=== PATIENT | female | born 1950 | race African-American/Black ===

== ENCOUNTER 2017-07-03 21:13 | Inpatient (IN) | payer MEDICARE ==
[~2017-07-03] VITALS: Ht 167.6 cm; Wt 66.5 kg
[~2017-07-03 21:13] MED LIST: NAPR40TA PO
[2017-07-03 21:20] VITALS: BP 188/125; PULSE 120; RESP 32; TEMP 97.3; O2SAT 98
[2017-07-03 21:56] VITALS: RESP 28; O2SAT 98
[2017-07-03] MEDS ORDERED: methylPREDNISolone SOD SUCC 125 MG/2 ML VIAL IV PUSH ONE (22:00)
[2017-07-03] MEDS ORDERED: SODIUM CHLORIDE 0.9% FLUSH 10 ML FLUSH IVF PRN (22:00)
[2017-07-03] MEDS: RESP: ALBUTEROL 2.5 MG/IPRATROPIUM 0.5 MG NEB (SCH) INH ×2 (22:10→22:11)
[2017-07-03 22:17] LABS: AUTOMATED NEUTROPHIL # 7.7 TH/MM3 (1.8-7.7); BASOPHIL % 0.4 % (0.0-2.0); EOSINOPHIL # 0.1 TH/MM3 (0-0.4); HEMATOCRIT 33.7 % (35.0-46.0); HEMOGLOBIN 11.8 GM/DL (11.6-15.3); LYMPH % 22.7 % (9.0-44.0); LYMPHOCYTE # 2.5 TH/MM3 (1.0-4.8); MEAN CELL VOLUME 88.8 FL (80.0-100.0); MEAN CORPUSCULAR HGB CONC 34.9 % (32.0-36.0); MEAN PLATELET VOLUME 6.7 FL (7.0-11.0); MONO % 6.1 % (0.0-8.0); MONOCYTE # 0.7 TH/MM3 (0-0.9); NEUT % 69.8 % (16.0-70.0); PLATELET COUNT 317 TH/MM3 (150-450); RED BLOOD COUNT 3.79 MIL/MM3 (4.00-5.30)
--- NOTE | 2017-07-03 22:28 | RADRPT ---
EXAM DATE/TIME: 07/03/2017 22:05 [facility] COMPARISON: No previous studies available for comparison. INDICATIONS : Short of breath. MEDICAL HISTORY : None. SURGICAL HISTORY : None. ENCOUNTER: Initial ACUITY: 1 week PAIN SCORE: 0/10 LOCATION: Bilateral chest FINDINGS: A single AP erect portable view of the chest was obtained and demonstrates streaky perihilar and biba silar opacities most characteristic of pulmonary edema. The heart size is enlarged. There is no effus ion. The bony thorax is intact. Overlying electrocardiogram leads are present. CONCLUSION: Streaky perihilar and bibasilar opacities most characteristic of pulmonary edema. Yared Wright MD on July 03, 2017 at 22:25 Board Certified Radiologist. This report was verified electronically.
[2017-07-03 22:40] LABS: INTERNATIONAL NORMALIZED RATIO 1.1 RATIO; PROTHROMBIN TIME - PATIENT 10.9 SEC (9.8-11.6)
--- NOTE | 2017-07-03 22:40 | PD ---
HPI Chief Complaint: Respiratory Distress Time Seen by Provider: 21:53 Travel History International Travel<30 days: No Contact w/Intl Traveler<30days: No Traveled to known affect area: No History of Present Illness HPI 67-year-old female complains of shortness of breath for 3 weeks. The shortness breath is constant. She quit smoking 3 weeks ago. She reports epigastric abdominal pain which she attributes to the continued shortness of breath. She' s had no fever. Exertional shortness of breath is reported. No orthopnea. PFSH Past Medical History Tetanus Vaccination: > 5 Years Influenza Vaccination: No ?: Not Social History Alcohol Use: Yes (1 drink per day ) Tobacco Use: Yes (1/2 PPD) Substance Use: No Allergies-Medications (Allergen,Severity, Reaction): Coded Allergies: No Known Allergies (Unverified Adverse Reaction, Unknown, 07/03/17) Reported Meds & Prescriptions Reported Meds & Active Scripts Active Naproxen Sodium 550 Mg Tab 550 Mg PO BID Review of Systems Except as stated in HPI: all other systems reviewed are Neg General / Constitutional: No: Fever Physical Exam Narrative GENERAL: 67-year-old female pleasant well-nourished minimal tachypnea Vital Signs Date Time Temp Pulse Resp B/P (MAP) Pulse Ox O2 Delivery O2 Flow Rate FiO2 07/03/17 21:56 28 98 Nasal Cannula 2.00 07/03/17 21:56 98 Nasal Cannula 2.00 07/03/17 21:42 28 98 Nasal Cannula 2.00 07/03/17 21:20 97.3 120 32 188/125 (146) 98 SKIN: Warm and dry. HEAD: Atraumatic. Normocephalic. EYES: Pupils equal and round. No scleral icterus. No injection or drainage. ENT: No nasal bleeding or discharge. Mucous membranes pink and moist. NECK: Trachea midline. No JVD. CARDIOVASCULAR: Regular rate and rhythm. RESPIRATORY: No accessory muscle use. Clear to auscultation. Breath sounds equal bilaterally. GASTROINTESTINAL: Abdomen soft, non-tender, nondistended. Hepatic and splenic margins not palpable. MUSCULOSKELETAL: Extremities without clubbing, cyanosis, or edema. No obvious deformities. NEUROLOGICAL: Awake and alert. No obvious cranial nerve deficits. Motor grossly within normal limits. Five out of 5 muscle strength in the arms and legs. Normal speech. PSYCHIATRIC: Appropriate mood and affect; insight and judgment normal. Data Data Last Documented VS Vital Signs Date Time Temp Pulse Resp B/P (MAP) Pulse Ox O2 Delivery O2 Flow Rate FiO2 07/03/17 21:56 28 98 Nasal Cannula 2.00 07/03/17 21:20 97.3 120 188/125 (146) Orders Orders Complete Blood Count With Diff (07/03/17 21:53) Comprehensive Metabolic Panel (07/03/17 21:53) B-Type Natriuretic Peptide (07/03/17 21:53) Act Partial Throm Time (Ptt) (07/03/17 21:53) Prothrombin Time / Inr (Pt) (07/03/17 21:53) Magnesium (Mg) (07/03/17 21:53) Ckmb (Isoenzyme) Profile (07/03/17:53) Troponin I (07/03/17:53) Iv Access Insert/Monitor (07/03/17 21:53) Electrocardiogram (07/03/17 21:53) Ecg Monitoring (07/03/17:53) Oximetry (07/03/17:53) Oxygen Administration (07/03/17 21:53) Chest, Single Ap (07/03/17 21:53) Ct Pulmonary Angiogram (07/03/17 21:53) Sodium Chloride 0.9% Flush (Ns Flush) (07/03/17 22:00) Methylprednisolone So Succ Inj (Solumedr (07/03/17 22:00) Albuterol-Ipratropium Neb (Duoneb Neb) (07/03/17 22:00) Lipase (07/03/17 21:53) Labs Laboratory Tests Test 07/03/17 22:00 White Blood Count 11.0 TH/MM3 Red Blood Count 3.79 MIL/MM3 Hemoglobin 11.8 GM/DL Hematocrit 33.7 % Mean Corpuscular Volume 88.8 FL Mean Corpuscular Hemoglobin 31.0 PG Mean Corpuscular Hemoglobin Concent 34.9 % Red Cell Distribution Width 16.0 % Platelet Count 317 TH/MM3 Mean Platelet Volume 6.7 FL Neutrophils (%) (Auto) 69.8 % Lymphocytes (%) (Auto) 22.7 % Monocytes (%) (Auto) 6.1 % Eosinophils (%) (Auto) 1.0 % Basophils (%) (Auto) 0.4 % Neutrophils # (Auto) 7.7 TH/MM3 Lymphocytes # (Auto) 2.5 TH/MM3 Monocytes # (Auto) 0.7 TH/MM3 Eosinophils # (Auto) 0.1 TH/MM3 Basophils # (Auto) 0.0 TH/MM3 CBC Comment DIFF FINAL Differential Comment Prothrombin Time 10.9 SEC Prothromb Time International Ratio 1.1 RATIO Activated Partial Thromboplast Time 23.6 SEC Blood Urea Nitrogen 22 MG/DL Random Glucose 130 MG/DL Albumin 3.9 GM/DL Calcium Level 9.6 MG/DL Magnesium Level 2.2 MG/DL Sodium Level 138 MEQ/L Potassium Level 3.9 MEQ/L Chloride Level 106 MEQ/L Carbon Dioxide Level 22.8 MEQ/L Anion Gap 9 MEQ/L Lipase 181 U/L MDM Medical Decision Making Medical Screen Exam Complete: Yes Emergency Medical Condition: Yes Medical Record Reviewed: Yes Differential Diagnosis Emphysema, COPD, anemia, PE, acute coronary syndrome Narrative Course Last Impressions Chest X-Ray 07/03/17 3800 Signed Impressions: Service Date/Time: Monday, July 03, 2017 22:05 - CONCLUSION: Streaky perihilar and bibasilar opacities most characteristic of pulmonary edema. Yared Wright MD CBC & BMP Diagram 07/03/17 22:00 Albumin 3.9, Calcium Level 9.6, Magnesium Level 2.2 Case d/w oncoming provider, Dr Segovia. BNP pending. CT pulmonary angiogram pending at 11pm. Conrado Baumann MD Jul 03, 2017 22:40
[2017-07-03 22:51] LABS: CHLORIDE 106 MEQ/L (98-107); SODIUM (NA) 138 MEQ/L (136-145)
[2017-07-03 22:54] LABS: CALCIUM 9.6 MG/DL (8.5-10.1)
[2017-07-03 22:55] LABS: ALBUMIN 3.9 GM/DL (3.4-5.0); BICARBONATE 22.8 MEQ/L (21.0-32.0); BLOOD UREA NITROGEN 22 MG/DL (7-18); GLUCOSE,RANDOM 130 MG/DL (74-106); MAGNESIUM 2.2 MG/DL (1.5-2.5)
[2017-07-03 22:58] LABS: ALT (GPT) 93 U/L (10-53); AST (GOT) 88 U/L (15-37); GLOMERULAR FILTRATION RATE 60 ML/MIN (>89)
[2017-07-03 22:59] LABS: TOTAL BILIRUBIN ADULT 0.6 MG/DL (0.2-1.0)
[2017-07-03 23:00] LABS: TOTAL PROTEIN 7.8 GM/DL (6.4-8.2)
[2017-07-03 23:01] LABS: ALKALINE PHOSPHATASE 78 U/L (45-117)
[2017-07-03 23:03] LABS: TROPONIN I 0.05 NG/ML (0.02-0.05)
[2017-07-03] MEDS ORDERED: FUROSEMIDE 40 MG/4 ML VIAL IV PUSH ONE (23:15)
[2017-07-03] MEDS ORDERED: IOHEXOL 350 MG/ML 10 ML VIAL (for RAD DIAG) IVCONTRAST ONE (23:17)
--- NOTE | 2017-07-03 23:26 | RADRPT ---
EXAM DATE/TIME: 07/03/2017 22:47 [facility] COMPARISON: CHEST SINGLE AP, July 03, 2017, 22:05. INDICATIONS : Shortness of breath. IV CONTRAST: 75 cc Omnipaque 350 (iohexol) IV RADIATION DOSE: 7.76 CTDIvol (mGy) MEDICAL HISTORY : None SURGICAL HISTORY : None. ENCOUNTER: Initial ACUITY: 4 - 6 days PAIN SCALE: 0/10 LOCATION: chest TECHNIQUE: Volumetric scanning of the chest was performed using a pulmonary embolism protocol MIP images were re constructed. Using automated exposure control and adjustment of the mA and/or kV according to patien t size, radiation dose was kept as low as reasonably achievable to obtain optimal diagnostic quality images. DICOM format image data is available electronically for review and comparison. Follow-up recommendations for detected pulmonary nodules are based at a minimum on nodule size and pa tient risk factors according to Fleischner Society Guidelines. FINDINGS: PULMONARY ARTERIES: No filling defects are seen in the pulmonary arteries through the segmental level. LUNGS: There is moderate to severe centrilobular emphysema. Interlobular septal thickening. PLEURAE: There is small right pleural effusion. MEDIASTINUM: There is good visualization of the great vessels of the middle mediastinum. No evidence of mediastin al or hilar adenopathy/mass. Coronary artery calcifications. Cardiomegaly. MUSCULOSKELETAL: Within normal limits for patient age. MISCELLANEOUS: The visualized upper abdominal organs demonstrate no acute abnormality. CONCLUSION: 1. No evidence for pulmonary embolism. 2. Cardiomegaly and interstitial edema. 3. Small right pleural effusion. Christian Gtz MD on July 03, 2017 at 23:23 Board Certified Radiologist. This report was verified electronically.
[2017-07-03] MEDS ORDERED: NALOXONE HCL 0.4 MG/ML AMP IV PUSH PRN (23:45)
[2017-07-03] MEDS ORDERED: SODIUM CHLORIDE 0.9% FLUSH 10 ML FLUSH IV FLUSH PRN (23:45)
[2017-07-03] MEDS ORDERED: ONDANSETRON HCL 4 MG/2 ML VIAL IVP PRN (23:45)
[2017-07-03] MEDS ORDERED: ACETAMINOPHEN 325 MG TAB PO PRN (23:45)
[2017-07-04] VITALS (26 sets, daily range): BP systolic 119–160; BP diastolic 79–112; PULSE 96–108; RESP 14–34; TEMP 97.5–98.2; O2SAT 96–100
[2017-07-04] MEDS: HEPARIN SODIUM - SQ 10,000 UNITS/ML VIAL SQ SCH ×4 (00:54→23:58)
[2017-07-04] MEDS: cloNIDine HCL 0.1 MG TAB PO PRN (00:54)
[2017-07-04 04:45] LABS: AUTOMATED NEUTROPHIL # 7.1 TH/MM3 (1.8-7.7); BASOPHIL % 0.1 % (0.0-2.0); EOSINOPHIL % 0.2 % (0.0-4.0); HEMOGLOBIN 11.7 GM/DL (11.6-15.3); LYMPH % 5.5 % (9.0-44.0); LYMPHOCYTE # 0.4 TH/MM3 (1.0-4.8); MEAN CELL VOLUME 89.4 FL (80.0-100.0); MEAN CORPUSCULAR HEMOGLOBIN 30.7 PG (27.0-34.0); MEAN CORPUSCULAR HGB CONC 34.3 % (32.0-36.0); MEAN PLATELET VOLUME 6.7 FL (7.0-11.0); MONO % 0.8 % (0.0-8.0); MONOCYTE # 0.1 TH/MM3 (0-0.9); NEUT % 93.4 % (16.0-70.0); PLATELET COUNT 304 TH/MM3 (150-450); RED BLOOD COUNT 3.81 MIL/MM3 (4.00-5.30); RED CELL DISTRIBUTION WIDTH 15.7 % (11.6-17.2); WHITE BLOOD COUNT 7.6 TH/MM3 (4.0-11.0)
[2017-07-04 04:46] LABS: CALCIUM 9.5 MG/DL (8.5-10.1)
[2017-07-04 04:47] LABS: BICARBONATE 22.1 MEQ/L (21.0-32.0)
[2017-07-04] MEDS: SODIUM CHLORIDE 0.9% FLUSH 10 ML FLUSH IV FLUSH SCH ×2 (08:08→20:48)
[2017-07-04] MEDS ORDERED: FUROSEMIDE 40 MG/4 ML VIAL IV PUSH SCH (09:00)
[2017-07-04] MEDS ORDERED: POTASSIUM CHLORIDE 10 MEQ CONTROLLED RELEASE TAB PO ONE (10:30)
[2017-07-04] MEDS ORDERED: FUROSEMIDE 20 MG/2 ML VIAL IV PUSH ONE (10:30)
--- NOTE | 2017-07-04 10:39 | HHI.HP ---
[facility] Primary Care Physician Haydee Rivero MD Admission Diagnosis New Onset CHF; Pleural Effusion; Hypoxia Diagnoses: Chief Complaint: Shortness of breath Travel History International Travel<30 Days: No Contact w/Intl Traveler <30 Da: No Traveled to Known Affected Are: No History of Present Illness 67-year-old white female being admitted for suspected new onset systolic acute CHF Patient was in her usual state of health until 2-3 weeks ago when she began experiencing a sudden onset of shortness of breath. This gradually worsened with time, developed orthopnea as well. Shortness of breath worsens substantially with any type of exertion including getting dressed or ambulating short distances. Denies any celi chest pain. Denies any fevers or chills. Denies any worsening lower extremity edema apart from her baseline edema which he attributes to being in a standing position all day at work. Patient second to the ER because of shortness of breath became constant at rest. In the emergency room a chest x-ray was obtained which independently reviewed which shows mild diffuse pulmonary edema. The angiogram was also obtained which shows a pleural effusion but otherwise is negative for pulmonary embolus. No acute infiltrates are noted on either study. 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 EYES: No scleral icterus. No injection or drainage. ENT: No nasal bleeding or discharge. Mucous membranes pink and moist. CARDIOVASCULAR: Regular rate and rhythm. no murmurs, no obvious JVD, no lower extremity edema, no hepatojugular reflex noted RESPIRATORY: No accessory muscle use. Mild crackles are heard bibasilarly GASTROINTESTINAL: Abdomen soft, non-tender, nondistended. Extremities: No clubbing, cyanosis, or edema. No obvious deformities. MUSCULOSKELETAL: adequate muscle bulk and tone for age and habitus NEUROLOGICAL: Awake and alert. No obvious cranial nerve deficits. No facial droop nor slurred speech noted. PSYCHIATRIC: Appropriate mood and affect; insight and judgment normal. Laboratory Laboratory Tests Test 07/03/17 22:00 07/04/17 04:20 White Blood Count 11.0 7.6 Red Blood Count 3.79 3.81 Hemoglobin 11.8 11.7 Hematocrit 33.7 34.0 Mean Corpuscular Volume 88.8 89.4 Mean Corpuscular Hemoglobin 31.0 30.7 Mean Corpuscular Hemoglobin Concent 34.9 34.3 Red Cell Distribution Width 16.0 15.7 Platelet Count 317 304 Mean Platelet Volume 6.7 6.7 Neutrophils (%) (Auto) 69.8 93.4 Lymphocytes (%) (Auto) 22.7 5.5 Monocytes (%) (Auto) 6.1 0.8 Eosinophils (%) (Auto) 1.0 0.2 Basophils (%) (Auto) 0.4 0.1 Neutrophils # (Auto) 7.7 7.1 Lymphocytes # (Auto) 2.5 0.4 Monocytes # (Auto) 0.7 0.1 Eosinophils # (Auto) 0.1 0.0 Basophils # (Auto) 0.0 0.0 CBC Comment DIFF FINAL DIFF FINAL Differential Comment Prothrombin Time 10.9 Prothromb Time International Ratio 1.1 Activated Partial Thromboplast Time 23.6 Blood Urea Nitrogen 22 19 Creatinine 1.10 1.00 Random Glucose 130 164 Total Protein 7.8 Albumin 3.9 Calcium Level 9.6 9.5 Magnesium Level 2.2 Alkaline Phosphatase 78 Aspartate Amino Transf (AST/SGOT) 88 Alanine Aminotransferase (ALT/SGPT) 93 Total Bilirubin 0.6 Sodium Level 138 139 Potassium Level 3.9 3.3 Chloride Level 106 104 Carbon Dioxide Level 22.8 22.1 Anion Gap 9 13 Estimat Glomerular Filtration Rate 60 67 Total Creatine Kinase 157 Creatine Kinase MB 4.1 Troponin I 0.05 B-Type Natriuretic Peptide 1840 Lipase 181 Result Diagram: 07/04/17 0420 07/04/17419 Imaging Last Impressions Chest X-Ray 07/03/172152 Signed Impressions: Service Date/Time: Monday, July 03, 2017 22:05 - CONCLUSION: Streaky perihilar and bibasilar opacities most characteristic of pulmonary edema. Yared Wright MD CT Angiography 07/03/172152 Signed Impressions: Service Date/Time: Monday, July 03, 2017 22:47 - CONCLUSION: 1. No evidence for pulmonary embolism. 2. Cardiomegaly and interstitial edema. 3. Small right pleural effusion. Christian Gtz MD Caprini VTE Risk Assessment Caprini VTE Risk Assessment: Mod/High Risk (score >= 2) Caprini Risk Assessment Model Point Value = 1 Point Value = 2 Point Value = 3 Point Value = 5 Age 41-60 Minor surgery BMI > 25 kg/m2 Swollen legs Varicose veins or History of unexplained or recurrent spontaneous Oral contraceptives or hormone replacement Sepsis (< 1 month) Serious lung disease, including pneumonia (< 1 month) Abnormal pulmonary function Acute myocardial infarction Congestive heart failure (< 1 month) History of inflammatory bowel disease Medical patient at bed rest Age 61-74 Arthroscopic surgery Major open surgery (> 45 min) Laparoscopic surgery (> 45 min) Malignancy Confined to bed (> 72 hours) Immobilizing plaster cast Central venous access Age >= 75 History of VTE Family history of VTE Factor V Leiden Prothrombin [id number] Lupus anticoagulant Anticardiolipin antibodies Elevated serum homocysteine Heparin-induced thrombocytopenia Other congenital or acquired thrombophilia Stroke (< 1 month) Elective arthroplasty Hip, pelvis, or leg fracture Acute spinal cord injury (< 1 month) Prophylaxis Regimen Total Risk Factor Score Risk Level Prophylaxis Regimen 0-1 Low Early ambulation 2 Moderate Order ONE of the following: *Sequential Compression Device (SCD) *Heparin 5000 units SQ BID 3-4 Higher Order ONE of the following medications: *Heparin 5000 units SQ TID *Enoxaparin/Lovenox 40 mg SQ daily (WT < 150 kg, CrCl > 30 mL/min) *Enoxaparin/Lovenox 30 mg SQ daily (WT < 150 kg, CrCl > 10-29 mL/min) *Enoxaparin/Lovenox 30 mg SQ BID (WT < 150 kg, CrCl > 30 mL/min) AND/OR *Sequential Compression Device (SCD) 5 or more Highest Order ONE of the following medications: *Heparin 5000 units SQ TID (Preferred with Epidurals) *Enoxaparin/Lovenox 40 mg SQ daily (WT < 150 kg, CrCl > 30 mL/min) *Enoxaparin/Lovenox 30 mg SQ daily (WT < 150 kg, CrCl > 10-29 mL/min) *Enoxaparin/Lovenox 30 mg SQ BID (WT < 150 kg, CrCl > 30 mL/min) AND *Sequential Compression Device (SCD) Assessment and Plan Assessment and Plan 67-year-old black female admitted for suspected new onset acute systolic CHF Shortness of breath -Elevated BNP -obtaining echocardiogram, mild edema noted on imaging, given Lasix in ER, continue with twice daily dosing of Lasix, intake output, fluid and salt restriction -BMP in AM -EKG d/w cards, no STEMI noted, trending troponins heparin Physician Certification 2 Midnight Certification Type: Admission for Inpatient Services Order for Inpatient Services The services are ordered in accordance with Medicare regulations or non- Medicare payer requirements, as applicable. In the case of services not specified as inpatient-only, they are appropriately provided as inpatient services in accordance with the 2-midnight benchmark. Estimated LOS (days): 2 2 days is the estimated time the patient will need to remain in the hospital, assuming treatment plan goals are met and no additional complications. Post-Hospital Plan: Home Jean Echeverria MD Jul 04, 2017 10:39
[2017-07-04] MEDS ORDERED: ASPIRIN 325 MG TAB PO ONE (14:30)
[2017-07-04] MEDS: FUROSEMIDE 40 MG/4 ML VIAL IV PUSH SCH (18:26)
[2017-07-04] MEDS: CARVEDILOL 6.25 MG TAB PO SCH (20:48)
--- NOTE | 2017-07-04 21:20 | EKG ---
Date Performed: 07/03/2017 Time Performed: 22:26:36 PTAGE: 67 years EKG: JUNCTIONAL TACHYCARDIA POSSIBLE RIGHT VENTRICULAR CONDUCTION DELAY VOLTAGE CRITERIA FOR LVH POSSIBLE SEPTAL MYOCARDIAL INFARCTION ABNORMAL ECG NO PREVIOUS TRACING DOCTOR: Terry Fragoso Interpretating Date/Time 07/04/2017 21:19:06
[2017-07-05] VITALS (8 sets, daily range): BP systolic 115–129; BP diastolic 74–95; PULSE 86–104; RESP 16–24; TEMP 97.6–98.4; O2SAT 96–100
[2017-07-05 05:16] LABS: CREATININE 1.2 MG/DL (0.50-1.00)
--- NOTE | 2017-07-05 08:03 | PD.CARD.PN ---
Subjective Subjective Remarks Pt breathing better than at admission but still notes she isn't breathing as well as she'd like Objective Medications Current Medications Medications (Trade) Dose Ordered Sig/Mike Route Start Time Stop Time Status Last Admin (NS Flush) 2 ml UNSCH PRN IV FLUSH 07/03/17 23:45 (NS Flush) 2 ml BID IV FLUSH 07/04/17 09:00 07/04/17 20:48 (Tylenol) 650 mg Q4H PRN PO 07/03/17 23:45 (Zofran Inj) 4 mg Q6H PRN IVP 07/03/17 23:45 (Heparin Inj) 5,000 units Q8H SQ 07/04/17 00:00 07/04/17 23:58 (Narcan Inj) 0.4 mg UNSCH PRN IV PUSH 07/03/17 23:45 (Catapres) 0.1 mg Q6H PRN PO 07/04/17 00:45 07/04/17 00:54 (Lasix Inj) 40 mg BID@ IV PUSH 07/04/17 18:00 07/04/17 18:26 (KCl) 30 meq DAILY PO 07/05/17 09:00 (Aspirin) 325 mg DAILY PO 07/05/17 09:00 (Coreg) 6.25 mg Q12HR PO 07/04/17 21:00 07/04/17 20:48 Vital Signs / I&O Vital Signs Date Time Temp Pulse Resp B/P (MAP) Pulse Ox O2 Delivery O2 Flow Rate FiO2 07/05/17 04:00 99 07/05/17 04:00 97.6 99 16 122/85 (97) 97 07/05/17 00:00 97 07/05/17 00:00 99 Nasal Cannula 2.00 07/05/17 00:00 98.4 96 24 129/93 (105) 99 07/04/17 20:00 97.8 96 14 135/94 (108) 96 07/04/17 20:00 98 07/04/17 19:01 104 17 119/79 (92) 07/04/17 19:00 104 07/04/17 18:01 102 07/04/17 18:01 102 20 151/98 (115) 07/04/17 17:16 106 07/04/17 17:01 102 07/04/17 17:01 102 18 136/100 (112) 98 07/04/17 16:01 106 15 127/79 (95) 98 07/04/17 16:01 106 07/04/17 15:01 104 07/04/17 15:01 104 17 121/83 (96) 99 07/04/17 14:01 100 21 138/99 (112) 100 07/04/17 14:00 102 07/04/17 13:01 100 07/04/17 13:01 100 17 132/91 (105) 98 07/04/17 12:01 97.5 104 22 147/100 (116) 99 07/04/17 12:00 102 07/04/17 10:44 99 Nasal Cannula 1.00 07/04/17 10:40 100 34 140/89 (106) 07/04/17 10:25 98 21 144/93 (110) 98 07/04/17 10:01 100 21 150/102 (118) 100 07/04/17 09:01 96 17 144/89 (107) 99 07/04/17 08:01 97.5 96 18 149/104 (119) 100 07/04/17 08:00 100 I/O 07/04/17 07/04/17 07/04/17 07/05/17 07/05/17 07/05/17 07:00 15:00 23:00 07:00 15:00 23:00 Intake Total 120 ml 1150 ml 0 ml Output Total 700 ml 1300 ml 600 ml Balance -700 ml 120 ml -150 ml -600 ml Intake Oral 120 ml 1150 ml 0 ml Output Urine Total 700 ml 1300 ml 600 ml # Bowel Movements 1 Physical Exam GENERAL: This is a well-nourished, well-developed patient, in no apparent distress. CARDIOVASCULAR: Regular rate and irregular rhythm without murmurs, gallops, or rubs. RESPIRATORY: Clear to auscultation. Breath sounds equal bilaterally. No wheezes , rales, or rhonchi. GASTROINTESTINAL: Abdomen soft, non-tender, nondistended. Normal, active bowel sounds MUSCULOSKELETAL: Extremities without clubbing, cyanosis, or edema. NEURO: Alert & Oriented x4 to person, place, time, situation. Moves all ext x4 Laboratory Laboratory Tests Test 07/04/17 14:10 07/04/17 21:00 07/05/17 04:25 Troponin I 0.04 NG/ML 0.05 NG/ML Blood Urea Nitrogen 33 MG/DL Creatinine 1.20 MG/DL Random Glucose 130 MG/DL Calcium Level 9.0 MG/DL Sodium Level 136 MEQ/L Potassium Level 3.9 MEQ/L Chloride Level 103 MEQ/L Carbon Dioxide Level 22.0 MEQ/L Anion Gap 11 MEQ/L Estimat Glomerular Filtration Rate 54 ML/MIN Imaging Last Impressions Chest X-Ray 07/03/172152 Signed Impressions: Service Date/Time: Monday, July 03, 2017 22:05 - CONCLUSION: Streaky perihilar and bibasilar opacities most characteristic of pulmonary edema. Yared Wright MD CT Angiography 07/03/172152 Signed Impressions: Service Date/Time: Monday, July 03, 2017 22:47 - CONCLUSION: 1. No evidence for pulmonary embolism. 2. Cardiomegaly and interstitial edema. 3. Small right pleural effusion. Christian Gtz MD Assessment and Plan Problem List: (1) Acute CHF (congestive heart failure) ICD Codes: I50.9 - Heart failure, unspecified Plan: Nearing compensation, Cr. did bump slightly, will stop IV lasix after this AMs dose and go to PO tomorrow; echo pending, I do suspect systolic dysfunction and will adjust meds as necessary (would add entresto potentially if cr stable) (2) Abnormal EKG ICD Codes: R94.31 - Abnormal electrocardiogram [ECG] [EKG] Plan: nuc stress pending (3) Dyspnea ICD Codes: R06.00 - Dyspnea, unspecified Plan: Improved but not resolved, though off O2, advised ambulation, testing as above. Assessment and Plan Dr. Diaz will likely follow in the AM. Manny Estrada MD Jul 05, 2017 08:03
--- NOTE | 2017-07-05 08:15 | MB ---
cc: Manny Estrada MD DATE: 07/04/2017 REASON FOR CONSULTATION: New onset congestive heart failure. HISTORY OF PRESENT ILLNESS: The patient is a very pleasant 67-year-old woman with no significant past medical history, who over the last few weeks has become progressively short of breath. This kept increasing with orthopnea to the point where she really could not breathe at all and thus presented to the emergency department in clinical congestive heart failure. She was begun on diuresis and is feeling mostly better, though she is still having some shortness of breath, but to a much lesser degree. She denies any other symptoms such as chest pain, lightheadedness, dizziness, syncope. She denies any significant past medical history. PAST MEDICAL HISTORY: None. SOCIAL HISTORY: She denied to me, though the chart says off and on smoking. HOME MEDICATIONS: None. CURRENT MEDICATIONS: Potassium 30 mEq daily, aspirin 325 mg a day, Lasix 40 mg IV b.i.d., subcutaneous heparin. ALLERGIES: NO KNOWN DRUG ALLERGIES. PHYSICAL EXAMINATION: VITAL SIGNS: Afebrile, pulse 104, respiratory rate 70, BP 121/83, saturating 99% on room air. GENERAL: Pleasant, thin -[place] woman in no distress. NECK: No JVD. LUNGS: Rales at both bases. CARDIOVASCULAR: Mildly tachycardic, but regular. No significant murmurs appreciated. ABDOMEN: Benign. EXTREMITIES: No edema. LABORATORY DATA: White count 7.6, hematocrit 34, platelets 304. Sodium 139, potassium 3.3, chloride 104, bicarbonate 22.1, BUN 19, creatinine 1.0, down from 1.1. Initial BNP was 1840. Troponins were negative x 2. ECHOCARDIOGRAM: Shows an ectopic atrial tachycardia at a rate of about 100, with diffuse ST changes consistent with ischemia or LVH. IMAGING: CTA of the chest showed cardiomegaly and interstitial edema, with small right pleural effusion. Chest x-ray shows pulmonary edema. ASSESSMENT AND PLAN: 1. New onset congestive heart failure. The patient may have either systolic or diastolic congestive heart failure. At this point, an echocardiogram is pending to help determine the etiology of her congestive heart failure. She has quite high blood pressures, so diastolic dysfunction is possible though the cardiomegaly seen on x-ray makes me suspicious that she has systolic congestive heart failure as well. I will have her undergo a nuclear stress test given the abnormal EKG to rule out an ischemic etiology. She is already diuresing and doing well from that standpoint. 2. Ectopic atrial rhythm. She is mildly tachycardic and compensating well and quite hypertensive. I am going to initiate carvedilol. Once we determine if her LV function is reduced, then we will make a determination regarding adding Entresto or an TERESITA/R. Further recommendations will be based on a clinical course, as well as her echocardiogram and nuclear stress test. Thank you again for the opportunity to participate in this patient's care. MD GERALDO Shi/LENNY , 04:47 PM , 05:09 PM
[2017-07-05] MEDS: CARVEDILOL 6.25 MG TAB PO SCH ×2 (09:30→20:43)
[2017-07-05] MEDS: ASPIRIN 325 MG TAB PO SCH (09:30)
[2017-07-05] MEDS: FUROSEMIDE 40 MG/4 ML VIAL IV PUSH SCH (09:31)
[2017-07-05] MEDS: HEPARIN SODIUM - SQ 10,000 UNITS/ML VIAL SQ SCH ×2 (09:31→16:55)
[2017-07-05] MEDS: POTASSIUM CHLORIDE 10 MEQ CONTROLLED RELEASE TAB PO SCH (09:32)
[2017-07-05] MEDS: SODIUM CHLORIDE 0.9% FLUSH 10 ML FLUSH IV FLUSH SCH ×2 (09:33→20:43)
[2017-07-05] MEDS ORDERED: REGADENOSON INJ 0.4 MG/5 ML SYR IV ONE (11:59)
--- NOTE | 2017-07-05 12:21 | HHI.PR ---
Subjective Remarks Nursing denies any deterioration since last night. Patient herself reports feeling only a notch better than yesterday but quite short of breath overall. Is awaiting stress test ordered by cardiology this morning. Objective Vital Signs Date Time Temp Pulse Resp B/P (MAP) Pulse Ox O2 Delivery O2 Flow Rate FiO2 07/05/17 10:27 97.6 96 16 115/88 (97) 07/05/17 08:09 94 22 119/95 (103) 07/05/17 08:00 96 07/05/17 07:00 96 Nasal Cannula 2.00 07/05/17 04:00 99 07/05/17 04:00 97.6 99 16 122/85 (97) 97 07/05/17 00:00 97 07/05/17 00:00 99 Nasal Cannula 2.00 07/05/17 00:00 98.4 96 24 129/93 (105) 99 07/04/17 20:00 97.8 96 14 135/94 (108) 96 07/04/17 20:00 98 07/04/17 19:01 104 17 119/79 (92) 07/04/17 19:00 104 07/04/17 18:01 102 07/04/17 18:01 102 20 151/98 (115) 07/04/17 17:16 106 07/04/17 17:01 102 07/04/17 17:01 102 18 136/100 (112) 98 07/04/17 16:01 106 15 127/79 (95) 98 07/04/17 16:01 106 07/04/17 15:01 104 07/04/17 15:01 104 17 121/83 (96) 99 07/04/17 14:01 100 21 138/99 (112) 100 07/04/17 14:00 102 07/04/17 13:01 100 07/04/17 13:01 100 17 132/91 (105) 98 I/O 07/04/17 07/04/17 07/04/17 07/05/17 07/05/17 07/05/17 06:59 14:59 22:59 06:59 14:59 22:59 Intake Total 120 ml 1150 ml 0 ml Output Total 700 ml 1300 ml 600 ml Balance -700 ml 120 ml -150 ml -600 ml Intake Oral 120 ml 1150 ml 0 ml Output Urine Total 700 ml 1300 ml 600 ml # Bowel Movements 1 Result Diagram: 07/04/17 0420 07/05/17 0425 Objective Remarks Bibasilar crackles heard with diminished breath sounds bilaterally, unlabored breathing, no cyanosis, no lower extremity edema A/P Assessment and Plan 67-year-old black female admitted for suspected new onset acute systolic CHF Shortness of breath -Elevated BNP -Pending echocardiogram, mild edema noted on imaging, - continue with twice daily dosing of Lasix, -negative fluid balance now with intake output, salt restriction -Stress test ordered by cardiology which is pending -EKG d/w cards, no STEMI noted, trending troponins heparin Addendum: Stress test shows some ischemia with a significantly depressed ejection fraction, cardiology notified, awaiting further recommendations. Jean Echeverria MD Jul 05, 2017 12:21
--- NOTE | 2017-07-05 13:20 | RADRPT ---
EXAM DATE/TIME: 07/05/2017 11:17 [facility] COMPARISON: No previous studies available for comparison. INDICATIONS : Shortness of breath for three weeks. Congestive heart failure. Abnormal EKG. DOSE: 25.9 mCi Tc99m Myoview at stress. 8.7 mCi Tc99m Myoview at rest. 0.4 mg Lexiscan STRESS SYMPTOMS: Shortness of breath. EJECTION FRACTION: 20% MEDICAL HISTORY : None SURGICAL HISTORY : None. ENCOUNTER: Initial ACUITY: 3 weeks PAIN SCALE: 0/10 LOCATION: chest TECHNIQUE: The patient underwent pharmacologic stress with infusion of prescribed dose. Continuous ECG tracing was monitored during stress. Gated SPECT imaging was performed after stress and conventional SPECT i maging was performed at rest. The examination was performed on a SPECT/CT scanner, both attenuation and non-corrected datasets were reviewed. FINDINGS: DISTRIBUTION: The maximum perfused segment at stress is in the lateral wall but it appears that the images were nor malized to the anteroseptal wall. PERFUSION STUDY: The pattern of perfusion at stress shows at least 20% redistribution in a segment of the mid inferose ptal wall on both the short axis, horizontal and vertical long axis views. Fixed diminished perfusion to the apex. GATED STUDY: Severe hypokinesis throughout. CONCLUSION: 1. Scintigraphic findings suggest ischemia in a focal area of the mid inferoseptal wall with possible old apical infarct. 2. Severe generalized hypokinesis with a markedly reduced ejection fraction of 20%. RISK CATEGORY: High (>3% Annual Mortality Rate) Jerardo Jacob MD on July 05, 2017 at 13:11 Board Certified Radiologist. This report was verified electronically.
--- NOTE | 2017-07-05 17:22 | ECHRPT ---
Indication: CHF CONCLUSIONS The left ventricular systolic function is severely reduced with an estimated ejection fraction in th e range of 30-35%. Wall thickness is measured at the upper limits of normal. Mildly dilated left ventricle. The left atrial size is mildly dilated. The right atrial size is nzlc-jv-lzykusdrvr dilated. Jouqevwh-is-weynmq mitral valve regurgitation. There is mild to moderate tricuspid valve regurgitation. The estimated pulmonary arterial pressure is 36.2 mmHg. BP: / HR: Rhythm: Sinus MEASUREMENTS (Male / Female) Normal Values Technical Quality:Good 2D ECHO LV Diastolic Diameter PLAX 5.3 cm 4.2 - 5.9 / 3.9 - 5.3 cm LV Systolic Diameter PLAX 4.6 cm IVS Diastolic Thickness 1.2 cm 0.6 - 1.0 / 0.6 - 0.9 cm LVPW Diastolic Thickness 1.2 cm 0.6 - 1.0 / 0.6 - 0.9 cm LV Relative Wall Thickness 0.5 LVOT Diameter 2.1 cm M-MODE Aortic Root Diameter MM 3.0 cm LA Systolic Diameter MM 4.3 cm LA Ao Ratio MM 1.4 AV Cusp Separation MM 1.9 cm DOPPLER AV Peak Velocity 101.0 cm/s AV Peak Gradient 4.1 mmHg LVOT Peak Velocity 42.0 cm/s LVOT Peak Gradient 0.7 mmHg AV Area Cont Eq pk 1.4 cm MR Peak Velocity 412.5 cm/s MR Peak Gradient 68.1 mmHg LV E' Lateral Velocity 8.8 cm/s LV E' Septal Velocity 5.9 cm/s TR Peak Velocity 256.0 cm/s TR Peak Gradient 26.2 mmHg Right Atrial Pressure 10.0 mmHg Pulmonary Artery Systolic Pressu 36.2 mmHg Right Ventricular Systolic Press 36.2 mmHg PV Peak Velocity 51.6 cm/s PV Peak Gradient 1.1 mmHg FINDINGS LEFT VENTRICLE The left ventricular systolic function is severely reduced with an estimated ejection fraction in th e range of 30-35%. Wall thickness is measured at the upper limits of normal. Mildly dilated left ventricle. RIGHT VENTRICLE Normal right ventricular size and systolic function. LEFT ATRIUM The left atrial size is mildly dilated. RIGHT ATRIUM The right atrial size is llwg-pr-iacovzriis dilated. ATRIAL SEPTUM Normal atrial septal thickness without atrial level shunting by limited color doppler interrogation. AORTA The aortic root and proximal ascending aorta are normal in size on limited imaging. MITRAL VALVE Qclaomqy-nj-sxpzei mitral valve regurgitation. AORTIC VALVE Trileaflet aortic valve. No aortic valve stenosis or regurgitation. TRICUSPID VALVE There is mild to moderate tricuspid valve regurgitation. The estimated pulmonary arterial pressure is 36.2 mmHg. PULMONARY VALVE No pulmonary valve regurgitation or stenosis. VESSELS The inferior vena cava is normal in size. PERICARDIUM No pericardial effusion. Collin Tang MD, FACC (Electronically Signed) Final Date:05 July 2017 17:21
--- NOTE | 2017-07-05 19:33 | EKG ---
Date Performed: 07/04/2017 Time Performed: 14:10:00 PTAGE: 67 years EKG: JUNCTIONAL/ECTOPIC ATRIAL TACHYCARDIA MARKED LEFT AXIS DEVIATION POSSIBLE RIGHT VENTRICULAR CONDUCTION DELAY VOLTAGE CRITERIA FOR LVH POSSIBLE SEPTAL MYOCARDIAL INFARCTION MODERATE T-WAVE ABNO RMALITY, CONSIDER LATERAL ISCHEMIA Since the previous tracing, no significant change noted ABNORMAL E CG PREVIOUS TRACING : 07/03/2017 22.26 DOCTOR: Manny Estrada Interpretating Date/Time 07/05/2017 19:32:22
[2017-07-06] VITALS (10 sets, daily range): BP systolic 112–155; BP diastolic 78–113; PULSE 15–93; RESP 12–18; TEMP 96.8–98.6; O2SAT 90–100
[2017-07-06] MEDS: HEPARIN SODIUM - SQ 10,000 UNITS/ML VIAL SQ SCH ×3 (01:16→15:23)
[2017-07-06 05:16] LABS: BICARBONATE 22.6 MEQ/L (21.0-32.0)
[2017-07-06 05:20] LABS: CREATININE 1.1 MG/DL (0.50-1.00)
--- NOTE | 2017-07-06 06:30 | PD.CARD.PN ---
Subjective Subjective Remarks The patient has moderate shortness of breath at rest which is mildly improved. She has no chest pain, palpitations, GI symptoms, bleeding. Telemetry reveals ectopic atrial rhythm with alternating atrial tachycardia and short nonsustained ventricular tachycardia. Echocardiogram with severe left ventricular dysfunction and moderate to severe MR. Objective Medications Current Medications Medications (Trade) Dose Ordered Sig/Mike Route Start Time Stop Time Status Last Admin (NS Flush) 2 ml UNSCH PRN IV FLUSH 07/03/17 23:45 (NS Flush) 2 ml BID IV FLUSH 07/04/17 09:00 07/05/17 20:43 (Tylenol) 650 mg Q4H PRN PO 07/03/17 23:45 (Zofran Inj) 4 mg Q6H PRN IVP 07/03/17 23:45 (Heparin Inj) 5,000 units Q8H SQ 07/04/17 00:00 07/06/17 01:16 (Narcan Inj) 0.4 mg UNSCH PRN IV PUSH 07/03/17 23:45 (Catapres) 0.1 mg Q6H PRN PO 07/04/17 00:45 07/04/17 00:54 (KCl) 30 meq DAILY PO 07/05/17 09:00 07/05/17 09:32 (Aspirin) 325 mg DAILY PO 07/05/17 09:00 07/05/17 09:30 (Coreg) 6.25 mg Q12HR PO 07/04/17 21:00 07/05/17 20:43 (Lasix) 40 mg DAILY PO 07/06/17 09:00 Vital Signs / I&O Vital Signs Date Time Temp Pulse Resp B/P (MAP) Pulse Ox O2 Delivery O2 Flow Rate FiO2 07/06/17 04:00 91 07/06/17 04:00 98.3 91 14 128/96 (107) 97 07/06/17 00:00 98.6 15 15 121/93 (102) 98 07/06/17 00:00 90 07/05/17 20:00 98.4 98 21 123/93 (103) 100 07/05/17 20:00 104 07/05/17 19:00 Nasal Cannula 2.00 07/05/17 16:00 86 07/05/17 16:00 98.3 96 16 121/93 (102) 07/05/17 12:00 91 128/74 (92) 96 07/05/17 10:27 97.6 96 16 115/88 (97) 07/05/17 08:09 94 22 119/95 (103) 07/05/17 08:00 96 07/05/17 07:00 96 Nasal Cannula 2.00 I/O 07/05/17 07/05/17 07/05/17 07/06/17 07/06/17 07/06/17 07:00 15:00 23:00 07:00 15:00 23:00 Intake Total 0 ml 240 ml 240 ml Output Total 600 ml 2 ml Balance -600 ml 238 ml 240 ml Intake Oral 0 ml 240 ml 240 ml Output Urine Total 600 ml 2 ml # Voids 3 # Bowel Movements 1 1 2 Physical Exam GENERAL: Well-nourished, well-developed patient in no apparent distress. SKIN: Warm and dry. NECK: JVD normal - equal to 7 cm H20. CARDIOVASCULAR: Regular rate and rhythm without rubs. 1/6 blowing systolic ejection murmur at the apex. S3 present. RESPIRATORY: Normal breath sounds - equal bilaterally. No accessory muscle use. No wheezes, rales or rubs. PERIPHERY: No cyanosis, or edema. Laboratory Laboratory Tests Test 07/06/17 04:53 Blood Urea Nitrogen 30 MG/DL Creatinine 1.10 MG/DL Random Glucose 118 MG/DL Calcium Level 9.0 MG/DL Sodium Level 137 MEQ/L Potassium Level 4.4 MEQ/L Chloride Level 107 MEQ/L Carbon Dioxide Level 22.6 MEQ/L Anion Gap 7 MEQ/L Estimat Glomerular Filtration Rate 60 ML/MIN Imaging Last 48 hours Impressions Myocardial Perfusion Scan Nuc Med 07/05/17 0600 Signed Impressions: Service Date/Time: June 11:17 - CONCLUSION: 1. Scintigraphic findings suggest ischemia in a focal area of the mid inferoseptal wall with possible old apical infarct. 2. Severe generalized hypokinesis with a markedly reduced ejection fraction of 20%%. RISK CATEGORY: High (>3%% Annual Mortality Rate) Jerardo Jacob MD Assessment and Plan Assessment and Plan Problems: Acute systolic congestive heart failure Ectopic atrial tachycardia Nonsustained ventricular tachycardia Cardiomyopathy of unclear etiology Mitral regurgitation Recommendations: Continue present medical regimen with DVT prophylaxis, beta blockers, diuretics. I will add in low-dose angiotensin receptor blockade. I will obtain a TSH level given her tachycardia. I have discussed possible catheterization with the patient. I do feel this will be important to assess whether she has significant coronary artery disease or whether this is a primary cardiomyopathy. 1 of my associates will see the patient tomorrow and direct further cardiac management. All questions were answered. Javon Diaz MD Jul 06, 2017 06:30
[2017-07-06] MEDS: LOSARTAN 25 MG TAB PO SCH ×2 (08:00→09:12)
[2017-07-06] MEDS: POTASSIUM CHLORIDE 10 MEQ CONTROLLED RELEASE TAB PO SCH (09:09)
[2017-07-06] MEDS: CARVEDILOL 6.25 MG TAB PO SCH ×2 (09:10→21:52)
[2017-07-06] MEDS: SODIUM CHLORIDE 0.9% FLUSH 10 ML FLUSH IV FLUSH SCH ×2 (09:10→21:53)
[2017-07-06] MEDS: ASPIRIN 325 MG TAB PO SCH (09:10)
[2017-07-06] MEDS: FUROSEMIDE 40 MG TAB PO SCH (09:11)
--- NOTE | 2017-07-06 14:14 | HHI.PR ---
Subjective Remarks Shortness of breath is significantly improved but still present. TSH is within normal limits. No recurrence of pulmonary edema or respiratory distress. Patient has been evaluated by cardiology. Possible heart cath on Sunday if patient remained stable through the weekend. Objective Vital Signs Date Time Temp Pulse Resp B/P (MAP) Pulse Ox O2 Delivery O2 Flow Rate FiO2 07/06/17 13:22 82 07/06/17 11:22 98.5 87 15 123/78 (93) 96 07/06/17 09:30 Room Air 07/06/17 09:07 89 18 126/78 (94) 94 07/06/17 09:00 93 07/06/17 04:00 91 07/06/17 04:00 98.3 91 14 128/96 (107) 97 07/06/17 00:00 98.6 15 15 121/93 (102) 98 07/06/17 00:00 90 07/05/17 20:00 98.4 98 21 123/93 (103) 100 07/05/17 20:00 104 07/05/17 19:00 Nasal Cannula 2.00 07/05/17 16:00 86 07/05/17 16:00 98.3 96 16 121/93 (102) I/O 07/05/17 07/05/17 07/05/17 07/06/17 07/06/17 07/06/17 07:00 15:00 23:00 07:00 15:00 23:00 Intake Total 0 ml 240 ml 240 ml Output Total 600 ml 2 ml Balance -600 ml 238 ml 240 ml Intake Oral 0 ml 240 ml 240 ml Output Urine Total 600 ml 2 ml # Voids 3 # Bowel Movements 1 1 2 Result Diagram: 07/04/17 0420 07/06/17 0453 Objective Remarks GENERAL: NAD, A&Ox3 HEAD: Normocephalic. NECK: Supple, trachea midline. No lymphadenopathy. EYES: No scleral icterus. No injection or drainage. CARDIOVASCULAR: Regular rate and rhythm without murmurs, gallops, or rubs. RESPIRATORY: Breath sounds equal bilaterally. No accessory muscle use. GASTROINTESTINAL: Abdomen soft, non-tender, nondistended. MUSCULOSKELETAL: No cyanosis, or edema. SKIN: Warm and dry. NEURO: No focal neurological deficitis. A/P Problem List: (1) Acute CHF (congestive heart failure) ICD Code: I50.9 - Heart failure, unspecified (2) Abnormal EKG ICD Code: R94.31 - Abnormal electrocardiogram [ECG] [EKG] (3) Dyspnea ICD Code: R06.00 - Dyspnea, unspecified Assessment and Plan 67-year-old black female admitted for suspected new onset acute systolic CHF Acute CHF Echocardiogram shows moderate to severe mitral valve regurgitation and an ejection fraction of 30-35% Continue diuretics Follow respiratory status Cardiology following Positive findings on stress test Possibility for heart cath in 3 days, if patient remains stable DVT prophylaxis heparin Conrado Araujo MD Jul 06, 2017 14:14
[2017-07-07] VITALS (12 sets, daily range): BP systolic 116–154; BP diastolic 86–102; PULSE 79–90; RESP 16–20; TEMP 96.9–98.5; O2SAT 97–100
[2017-07-07] MEDS: HEPARIN SODIUM - SQ 10,000 UNITS/ML VIAL SQ SCH ×4 (00:54→23:28)
[2017-07-07] MEDS ORDERED: DOCUSATE SODIUM 100 MG CAP PO PRN (06:30)
[2017-07-07] MEDS ORDERED: MAGNESIUM HYDROXIDE SUSP 30 ML CUP PO PRN (06:30)
[2017-07-07] MEDS ORDERED: LACTULOSE SYRUP 20 GM/30 ML CUP PO PRN (06:30)
[2017-07-07 07:43] LABS: AUTOMATED NEUTROPHIL # 5.1 TH/MM3 (1.8-7.7); BASOPHIL # 0.2 TH/MM3 (0-0.2); BASOPHIL % 2.1 % (0.0-2.0); EOSINOPHIL # 0.2 TH/MM3 (0-0.4); EOSINOPHIL % 2.2 % (0.0-4.0); HEMATOCRIT 35.7 % (35.0-46.0); HEMOGLOBIN 11.6 GM/DL (11.6-15.3); LYMPH % 24.8 % (9.0-44.0); MEAN CORPUSCULAR HEMOGLOBIN 29.2 PG (27.0-34.0); MEAN CORPUSCULAR HGB CONC 32.4 % (32.0-36.0); MEAN PLATELET VOLUME 7.4 FL (7.0-11.0); MONO % 7.7 % (0.0-8.0); MONOCYTE # 0.6 TH/MM3 (0-0.9); NEUT % 63.2 % (16.0-70.0); PLATELET COUNT 295 TH/MM3 (150-450); RED BLOOD COUNT 3.97 MIL/MM3 (4.00-5.30); RED CELL DISTRIBUTION WIDTH 15.4 % (11.6-17.2); WHITE BLOOD COUNT 8.1 TH/MM3 (4.0-11.0)
[2017-07-07 07:56] LABS: CHLORIDE 108 MEQ/L (98-107); SODIUM (NA) 138 MEQ/L (136-145)
[2017-07-07 07:59] LABS: CALCIUM 8.8 MG/DL (8.5-10.1)
[2017-07-07 08:00] LABS: ALBUMIN 3.2 GM/DL (3.4-5.0); BICARBONATE 23.1 MEQ/L (21.0-32.0); BLOOD UREA NITROGEN 24 MG/DL (7-18); GLUCOSE,RANDOM 114 MG/DL (74-106)
[2017-07-07 08:03] LABS: ALT (GPT) 72 U/L (10-53); AST (GOT) 35 U/L (15-37); CREATININE 0.96 MG/DL (0.50-1.00); GLOMERULAR FILTRATION RATE 70 ML/MIN (>89)
[2017-07-07 08:05] LABS: TOTAL BILIRUBIN ADULT 0.4 MG/DL (0.2-1.0); TOTAL PROTEIN 6.7 GM/DL (6.4-8.2)
[2017-07-07 08:06] LABS: ALKALINE PHOSPHATASE 75 U/L (45-117)
[2017-07-07] MEDS: FUROSEMIDE 40 MG TAB PO SCH (09:29)
[2017-07-07] MEDS: CARVEDILOL 6.25 MG TAB PO SCH ×2 (09:29→20:23)
[2017-07-07] MEDS: ASPIRIN 325 MG TAB PO SCH (09:29)
[2017-07-07] MEDS: LOSARTAN 25 MG TAB PO SCH (09:29)
[2017-07-07] MEDS: POTASSIUM CHLORIDE 10 MEQ CONTROLLED RELEASE TAB PO SCH (09:29)
[2017-07-07] MEDS: SODIUM CHLORIDE 0.9% FLUSH 10 ML FLUSH IV FLUSH SCH ×2 (09:30→20:23)
--- NOTE | 2017-07-07 10:51 | HHI.PR ---
Subjective Remarks Nursing denies any deterioration since last night. Patient reports improved endurance with dyspnea on exertion, still feels short of breath nonetheless. Objective Vital Signs Date Time Temp Pulse Resp B/P (MAP) Pulse Ox O2 Delivery O2 Flow Rate FiO2 07/07/17 08:00 97.3 86 18 136/100 (112) 98 07/07/17 07:50 Nasal Cannula 2.00 07/07/17 07:50 85 07/07/17 04:00 98.0 82 16 142/90 (107) 98 07/07/17 00:19 97.6 88 20 141/92 (108) 97 07/06/17 22:00 Nasal Cannula 2.00 07/06/17 20:00 97.9 87 18 134/86 (102) 98 07/06/17 18:51 90 07/06/17 18:08 96.8 81 18 155/113 (127) 100 07/06/17 16:40 87 12 112/81 (91) 90 07/06/17 13:22 82 07/06/17 11:22 98.5 87 15 123/78 (93) 96 I/O 07/06/17 07/06/17 07/06/17 07/07/17 07/07/17 07/07/17 07:00 15:00 23:00 07:00 15:00 23:00 Intake Total 240 ml 0 ml Balance 240 ml 0 ml Intake Oral 240 ml IV Total 0 ml # Voids 3 3 # Bowel Movements 2 0 Result Diagram: 07/07/17 0733 07/07/17 0733 Objective Remarks Bibasilar crackles heard with diminished breath sounds bilaterally, unlabored breathing, no cyanosis, no lower extremity edema Was able to ambulate to the doorway got winded when getting back to the bed A/P Assessment and Plan 67-year-old black female admitted for suspected new onset acute systolic CHF New onset acute CHF with depressed ejection fraction - continue Lasix, -Stress test is positive, catheterization anticipated in 2 days -Aspirin, Coreg, losartan, potassium MICAELA -improving after lasix IV to PO heparin Jean Echeverria MD Jul 07, 2017 10:51
--- NOTE | 2017-07-07 15:13 | PD.CARD.PN ---
Subjective Subjective Remarks Pt without complaints Objective Medications Current Medications Medications (Trade) Dose Ordered Sig/Mike Route Start Time Stop Time Status Last Admin (NS Flush) 2 ml UNSCH PRN IV FLUSH 07/03/17 23:45 (NS Flush) 2 ml BID IV FLUSH 07/04/17 09:00 07/07/17 09:30 (Tylenol) 650 mg Q4H PRN PO 07/03/17 23:45 (Zofran Inj) 4 mg Q6H PRN IVP 07/03/17 23:45 (Heparin Inj) 5,000 units Q8H SQ 07/04/17 00:00 07/07/17 09:30 (Narcan Inj) 0.4 mg UNSCH PRN IV PUSH 07/03/17 23:45 (Catapres) 0.1 mg Q6H PRN PO 07/04/17 00:45 07/04/17 00:54 (KCl) 30 meq DAILY PO 07/05/17 09:00 07/07/17 09:29 (Aspirin) 325 mg DAILY PO 07/05/17 09:00 07/07/17 09:29 (Coreg) 6.25 mg Q12HR PO 07/04/17 21:00 07/07/17 09:29 (Lasix) 40 mg DAILY PO 07/06/17 09:00 07/07/17 09:29 (Cozaar) 25 mg DAILY PO 07/06/17 08:00 07/07/17 09:29 (Colace) 100 mg BID PRN PO 07/07/17 06:30 (Lactulose Liq) 30 ml TID PRN PO 07/07/17 06:30 (Milk Of Magnesia Liq) 30 ml Q6H PRN PO 07/07/17 06:30 Vital Signs / I&O Vital Signs Date Time Temp Pulse Resp B/P (MAP) Pulse Ox O2 Delivery O2 Flow Rate FiO2 07/07/17 12:00 96.9 86 18 128/97 (107) 100 07/07/17 08:00 97.3 86 18 136/100 (112) 98 07/07/17 07:50 Nasal Cannula 2.00 07/07/17 07:50 85 07/07/17 04:00 98.0 82 16 142/90 (107) 98 07/07/17 00:19 97.6 88 20 141/92 (108) 97 07/06/17 22:00 Nasal Cannula 2.00 07/06/17 20:00 97.9 87 18 134/86 (102) 98 07/06/17 18:51 90 07/06/17 18:08 96.8 81 18 155/113 (127) 100 07/06/17 16:40 87 12 112/81 (91) 90 I/O 07/06/17 07/06/17 07/06/17 07/07/17 07/07/17 07/07/17 07:00 15:00 23:00 07:00 15:00 23:00 Intake Total 240 ml 0 ml Balance 240 ml 0 ml Intake Oral 240 ml IV Total 0 ml # Voids 3 3 # Bowel Movements 2 0 Physical Exam GENERAL: Well developed, well nourished. No acute distress. HEENT: Jugular venous pressure is normal. CHEST: Lungs clear to auscultation bilaterally. Unlabored respiratory effort. CARDIAC: Regular rate and rhythm without S3, S4, holosystolic murmur. ABDOMEN: Soft, nontender, no hepatosplenomegaly. Bowel sounds present. EXTREMITIES: No clubbing, cyanosis, or edema. Laboratory Laboratory Tests Test 07/07/17 07:33 White Blood Count 8.1 TH/MM3 Red Blood Count 3.97 MIL/MM3 Hemoglobin 11.6 GM/DL Hematocrit 35.7 % Mean Corpuscular Volume 90.0 FL Mean Corpuscular Hemoglobin 29.2 PG Mean Corpuscular Hemoglobin Concent 32.4 % Red Cell Distribution Width 15.4 % Platelet Count 295 TH/MM3 Mean Platelet Volume 7.4 FL Neutrophils (%) (Auto) 63.2 % Lymphocytes (%) (Auto) 24.8 % Monocytes (%) (Auto) 7.7 % Eosinophils (%) (Auto) 2.2 % Basophils (%) (Auto) 2.1 % Neutrophils # (Auto) 5.1 TH/MM3 Lymphocytes # (Auto) 2.0 TH/MM3 Monocytes # (Auto) 0.6 TH/MM3 Eosinophils # (Auto) 0.2 TH/MM3 Basophils # (Auto) 0.2 TH/MM3 CBC Comment DIFF FINAL Differential Comment Blood Urea Nitrogen 24 MG/DL Creatinine 0.96 MG/DL Random Glucose 114 MG/DL Total Protein 6.7 GM/DL Albumin 3.2 GM/DL Calcium Level 8.8 MG/DL Alkaline Phosphatase 75 U/L Aspartate Amino Transf (AST/SGOT) 35 U/L Alanine Aminotransferase (ALT/SGPT) 72 U/L Total Bilirubin 0.4 MG/DL Sodium Level 138 MEQ/L Potassium Level 4.3 MEQ/L Chloride Level 108 MEQ/L Carbon Dioxide Level 23.1 MEQ/L Anion Gap 7 MEQ/L Estimat Glomerular Filtration Rate 70 ML/MIN Imaging Last 72 hours Impressions Myocardial Perfusion Scan Nuc Med 07/05/17 0600 Signed Impressions: Service Date/Time: June 11:17 - CONCLUSION: 1. Scintigraphic findings suggest ischemia in a focal area of the mid inferoseptal wall with possible old apical infarct. 2. Severe generalized hypokinesis with a markedly reduced ejection fraction of 20%%. RISK CATEGORY: High (>3%% Annual Mortality Rate) Jerardo Jacob MD Assessment and Plan Problem List: (1) Acute CHF (congestive heart failure) ICD Codes: I50.9 - Heart failure, unspecified Plan: Stable today, nuc noted with suggesting some inferoseptal ischemia => risk /bene of cath discussed and she wants a card cath (2) Abnormal EKG ICD Codes: R94.31 - Abnormal electrocardiogram [ECG] [EKG] (3) Dyspnea ICD Codes: R06.00 - Dyspnea, unspecified (4) Mitral regurgitation ICD Codes: I34.0 - Nonrheumatic mitral (valve) insufficiency (5) Cardiomyopathy ICD Codes: I42.9 - Cardiomyopathy, unspecified Plan: EF 20% by nuc, 30-35% by ECHO Nia Ramsey MD Jul 07, 2017 15:13
[2017-07-07] MEDS: cloNIDine HCL 0.1 MG TAB PO PRN (17:16)
[2017-07-08] VITALS (26 sets, daily range): BP systolic 115–146; BP diastolic 83–99; PULSE 76–89; RESP 18–20; TEMP 97.5–98.2; O2SAT 98–100
[2017-07-08] MEDS: FUROSEMIDE 40 MG TAB PO SCH (07:58)
[2017-07-08] MEDS: ASPIRIN 325 MG TAB PO SCH (07:59)
[2017-07-08] MEDS: CARVEDILOL 6.25 MG TAB PO SCH ×2 (07:59→20:23)
[2017-07-08] MEDS: SODIUM CHLORIDE 0.9% FLUSH 10 ML FLUSH IV FLUSH SCH ×2 (07:59→20:27)
[2017-07-08] MEDS: POTASSIUM CHLORIDE 10 MEQ CONTROLLED RELEASE TAB PO SCH (07:59)
[2017-07-08] MEDS: LOSARTAN 25 MG TAB PO SCH (07:59)
[2017-07-08] MEDS: HEPARIN SODIUM - SQ 10,000 UNITS/ML VIAL SQ SCH ×3 (08:00→23:36)
[2017-07-08] MEDS ORDERED: diphenhydrAMINE HCL 50 MG CAP PO SCH (10:15)
[2017-07-08] MEDS ORDERED: DIAZEPAM 10 MG TAB PO SCH (10:15)
[2017-07-08] MEDS ORDERED: MIDAZOLAM HCL 2 MG/2 ML VIAL IV PUSH SCH (10:15)
--- NOTE | 2017-07-08 10:33 | MB ---
cc: Babar Valerio MD DATE: 07/08/2017 REASON FOR CONSULTATION: Consider cardiac catheterization. HISTORY OF PRESENT ILLNESS: The patient is a very pleasant 67-year-old female, with previously no major past medical history who presented recently to [place] with increasing shortness of breath. She was found to have congestive heart failure and further workup has shown reduced ejection fraction, mitral regurgitation. The patient states she had had increasing shortness of breath for the past several weeks. She has had minimal pedal edema without chest pains, dizziness, syncope, near syncope, palpitations. Rarely she has had paroxysmal nocturnal dyspnea. On monitoring in [place] she reportedly had episodes of nonsustained ventricular tachycardia. Echocardiogram reportedly showed moderate to severe mitral regurgitation. Nuclear stress test was obtained, suggesting inferoseptal ischemia. She denies recent fevers, although she had flu-like symptoms about 6 months ago. Since coming into the hospital her dyspnea has markedly improved. PAST MEDICAL HISTORY: As above. CURRENT CARDIAC MEDICATIONS: Furosemide 40 mg p.o. daily, losartan 25 mg p.o. daily, potassium chloride 30 mEq p.o. daily, aspirin 325 mg p.o. daily, carvedilol 6.25 mg p.o. b.i.d. ALLERGIES: NO KNOWN DRUG ALLERGIES. FAMILY HISTORY: There is no significant family history or early myocardial infarction. SOCIAL HISTORY: The patient denies any history of alcohol or tobacco abuse. REVIEW OF SYSTEMS: As in the history of present illness, otherwise negative or noncontributory. She also denies headache, abdominal pain, melena, dyspepsia, bright red blood per rectum. PHYSICAL EXAMINATION: VITAL SIGNS: Her blood pressure 135/95 with a pulse of 84, respirations 18. GENERAL: She is a well-developed, well-nourished female in no acute distress. NECK: Jugular venous pressure is normal. Carotid pulses are 2+ bilaterally and without bruits. CHEST: Reveals clear lungs doherty. CARDIAC: She has a regular rhythm and rate without S3, S4, or murmur. ABDOMEN: She has a soft, nontender abdomen. Bowel sounds are present. There is no definite hepatosplenomegaly. EXTREMITIES: Reveals no clubbing, cyanosis or edema. Peripheral pulses are normal throughout. LABORATORY DATA: EKG from 07/03/2017 at 10:26 p.m. shows ectopic atrial rhythm with nonspecific T-wave abnormalities. EKG from 07/04/2017 shows ectopic atrial rhythm with lateral T-wave inversion, consider ischemia. Includes normal CBC, potassium 4.3, BUN 24, creatinine 0.96. Troponin 0.05. IMPRESSION: Severe dilated cardiomyopathy, abnormal nuclear stress test, nonsustained ventricular tachycardia, acute congestive heart failure in this 67-year-old female, with previously no major past medical history. I have been asked to see the patient for possible cardiac catheterization to rule out underlying coronary disease as the etiology of her cardiomyopathy. Her echocardiogram from 07/05/2017 has been reviewed. I would disagree with the reported ejection fraction of 30-35%. It clearly is closer to 20% or less. I would also disagree with the reported moderate to severe mitral regurgitation. There is only mild to moderate mitral regurgitation. Her nuclear stress test images have been reviewed. There is indeed a small area of inferoseptal ischemia. Overall, I suspect her cardiomyopathy is nonischemic in origin, possibly viral. Nonetheless, would agree with the need for cardiac catheterization to most definitively rule out underlying coronary disease. RECOMMENDATIONS: 1. Cardiac catheterization tomorrow. 2. Continue to optimize her congestive heart failure medical regimen. MD BETY Pimentel/OC , 10:14 AM , 10:32 AM [email or web address]
--- NOTE | 2017-07-08 12:24 | HHI.PR ---
Subjective Remarks feeling better no complains Objective Vitals Vital Signs Date Time Temp Pulse Resp B/P (MAP) Pulse Ox O2 Delivery O2 Flow Rate FiO2 07/08/17 11:01 97.5 89 18 134/95 (108) 100 07/08/17 11:01 98 Room Air 07/08/17 08:01 97.9 81 18 115/83 (94) 98 07/08/17 08:01 98 Room Air 07/08/17 07:01 84 07/08/17 06:00 83 07/08/17 05:00 85 07/08/17 04:00 Room Air 07/08/17 04:00 98.0 80 18 135/95 (108) 98 07/08/17 04:00 80 07/08/17 03:00 81 07/08/17 02:00 76 07/08/17 01:00 77 07/08/17 00:00 78 07/08/17 00:00 98.2 78 20 115/87 (96) 100 07/08/17 00:00 Room Air 07/07/17 23:00 79 07/07/17 22:00 80 07/07/17 21:00 83 07/07/17 20:00 Room Air 07/07/17 20:00 98.3 81 18 116/86 (96) 99 07/07/17 20:00 81 07/07/17 18:23 97.7 89 18 142/95 (111) 100 07/07/17 17:17 140/100 (113) 07/07/17 17:10 98.5 90 16 154/102 (119) 99 I/O 07/07/17 07/07/17 07/07/17 07/08/17 07/08/17 07/08/17 07:00 15:00 23:00 07:00 15:00 23:00 Intake Total 0 ml 0 ml 240 ml Output Total 900 ml Balance 0 ml 0 ml -660 ml Intake Oral 240 ml IV Total 0 ml 0 ml Output Urine Total 900 ml # Voids 3 # Bowel Movements 0 0 Result Diagram: 07/07/17 0733 07/07/17 0733 Imaging Last Impressions Myocardial Perfusion Scan Nuc Med 07/05/17 0600 Signed Impressions: Service Date/Time: June 11:17 - CONCLUSION: 1. Scintigraphic findings suggest ischemia in a focal area of the mid inferoseptal wall with possible old apical infarct. 2. Severe generalized hypokinesis with a markedly reduced ejection fraction of 20%%. RISK CATEGORY: High (>3%% Annual Mortality Rate) Jerardo Jacob MD Chest X-Ray 07/03/172152 Signed Impressions: Service Date/Time: Monday, July 03, 2017 22:05 - CONCLUSION: Streaky perihilar and bibasilar opacities most characteristic of pulmonary edema. Yared Wright MD CT Angiography 07/03/172152 Signed Impressions: Service Date/Time: Monday, July 03, 2017 22:47 - CONCLUSION: 1. No evidence for pulmonary embolism. 2. Cardiomegaly and interstitial edema. 3. Small right pleural effusion. Christian Gtz MD Objective Remarks awake and alert, no acute distress anicteric no nuchal rigidity l;ungs- no rales regular rhythma bdomen soft, nontender extremities no edema neuro exam- unremarkable A/P Assessment and Plan 67-year-old black female admitted for suspected new onset acute systolic CHF states 2 weeks duration of shortness of breath even just by dressing up , states recent flulike symptoms 4 weeks ago, denies any leg swelling Dilated Cardiomyopathy with abnormal nuclear stress test NSVT HYpertension - continue Lasix - cardiac catheterization tomorrow - for cardiac cath tomorrow -Aspirin, Coreg, losartan, potassium MICAELA- improving- non oliguric -improving after lasix IV to PO ff BMP for cath tomorrow Gloria Smith MD Jul 08, 2017 12:24
[2017-07-08] MEDS ORDERED: diphenhydrAMINE HCL 25 MG CAP PO ONE (19:45)
[2017-07-09] VITALS (22 sets, daily range): BP systolic 111–135; BP diastolic 74–102; PULSE 72–86; RESP 18–24; TEMP 97.4–98.4; O2SAT 97–100
[2017-07-09] MEDS: SODIUM CHLOR 0.9% 1000 ML INJ 1,000 ML IV SCH (02:54)
[2017-07-09] MEDS: HEPARIN SODIUM - SQ 10,000 UNITS/ML VIAL SQ SCH ×2 (08:00→17:08)
[2017-07-09] MEDS: SODIUM CHLORIDE 0.9% FLUSH 10 ML FLUSH IV FLUSH SCH ×2 (09:00→20:59)
[2017-07-09] MEDS: CARVEDILOL 6.25 MG TAB PO SCH ×2 (09:11→20:59)
[2017-07-09] MEDS: FUROSEMIDE 40 MG TAB PO SCH (09:11)
[2017-07-09] MEDS: ASPIRIN 325 MG TAB PO SCH (09:12)
[2017-07-09] MEDS: POTASSIUM CHLORIDE 10 MEQ CONTROLLED RELEASE TAB PO SCH (09:12)
[2017-07-09] MEDS: LOSARTAN 25 MG TAB PO SCH (09:12)
[2017-07-09] MEDS ORDERED: MIDAZOLAM HCL 2 MG/2 ML VIAL ONE (09:57)
[2017-07-09] MEDS ORDERED: LIDOCAINE HCL 1% PF 30 ML VIAL ONE (09:57)
[2017-07-09] MEDS ORDERED: HEPARIN-NS/PF FLUSH BAG 2,000 ML IV FLUSH ONE (09:57)
[2017-07-09] MEDS ORDERED: HEPARIN SODIUM - IV 10,000 UNITS/10 ML VIAL ONE (09:58)
[2017-07-09] MEDS ORDERED: NITROGLYCERIN INJ 5 ML ONE (09:58)
[2017-07-09] MEDS ORDERED: VERAPAMIL HCL 5 MG/2 ML VIAL ONE (09:58)
--- NOTE | 2017-07-09 10:53 | CATHPROC ---
[facility] HIS Report Study Information Study Number Admission Scheduled Start Study Start [id number] Jul 04 2017 10:27AM 07/08/2017 Jul 09 2017 9:03AM [place] Service Cardiac Catheterization Admit Source Facility Department Other [facility] - [facility] Physician and Clinical Staff Initial Babar Matson Haul Cane Brakeman Cassidy Morales,TRAMAINE Recorder Lida Mccray,PULLER THROUGH Recorder Hardy Hunter,RT(R) Scrub Alvin, Mere,ASSEMBLER 1ST SHIFT TECH2 Procedures Performed Procedure Location (Site) Vessel Name Angiogram LV LV Ventricle Coronary Angiograms LCA Left Coronary Coronary Angiograms RCA Right Coronary L Heart Cath LV Gram-hand inj. LV LV Ventricle Wire insertion Radial (right) Radial Art. Equipment Time Umbrella Cutter Description Size Mfg Part Number Used/Scraped TRANSDUCER, TRUWAVE [id number] 09:10 HAMILTON VELA * Used W/STOCKCOCK *[id number] *[id number] WIRE, HYDROSTEER 150CM [id number] 10:23 DAIG[employer] 150CM Used ANGLED GLIDE *[id number] WIRE, HYDROSTEER 260CM [id number] 10:23 DAIG[employer] 260CM Used ANGLED GLIDE *[id number] 09:10 [employer] SYRINGE, ANGIOMAT 150ML 150ML *[id number] Used 2SUB [employer] CONCEPT DRAPE, RADIAL FEMORAL FULL 09:10 * [id number] *[id number] Used DEVELOPMENT BODY [id number] 09:10 [employer] PACK, CCL CUSTOM * Used *[id number] 09:10 [employer] SUPPORT, ARTERIAL ADULT [id number] *[id number] Used [id number] 09:10 Akella PACER PEN, SKIN DUAL W/ RULER * Used *[id number] BAND, RADIAL COMPRESSION TR [id number] 10:43 Trover 24CM Used SHORT 24 *[id number] SHEATH, FR6 RADIAL PRELUDE 09:10 Trover FR 6 [id number] Used EASE 11CM [id number] 09:10 [employer]ver WIRE, EXCHANGE 260CM 3MMJ 260CM Used *[id number] 09:10 NAMIC MANIFOLD, 4 PORT * Used *[id number] 10:33 NAMIC TUBING, HIGH PRESSURE 48" 48" Used *[id number] 09:10 [employer] OMNIPAQUE, 350 MG, 150ML 150ML [id number] Used 10:39 [employer] OMNIPAQUE, 350 MG, 50ML 50ML [id number] Used [id number] 09:10 [facility] BLANKET,WARM AIR CCL * Used *[id number] CATHETER, FR5 OPTITORQUE [id number] 10:02 [employer] FR 5 Used RADIAL TIG 4.0 *[id number] Equipment Model, Serial, Lot Number and Expiration Data Description Model Number Serial Number Lot Number Expiration Date BAND, RADIAL COMPRESSION TR [id number] 04-25-2020 SHORT 24 History: Allergies Allergy Reaction No Known Allergies History: Risk Factors Family History of Hypertension Dyslipidemia Previous GA Previous Heart Failure Premature CAD No No No No Yes Prior Valve Prior PCI Prior CABG Surgery No No No Cerebrovascular Peripheral Artery Chronic Lung On Dialysis Diabetes Disease Disease Disease No No No No No History: Stress Tests Stress or Imaging Studies Performed Yes Standard Exercise Stress Test No Stress Echo No Stress Test SPECT Stress Test SPECT Result Stress Test SPECT Ischemia Risk/Extent Yes Positive Intermediate Stress Test CMR No Cardiac CTA Coronary Calcium Score No No History: Other Current Smoker Method Quit Packs a Day Years Used Pack Years No Cigarettes 1 Years Ago 1 20 20 Labs Hgb (g/dl) Hct (%) WBC (l/cumm) Platelets (thousands) 11.60-17.00 35.00-51.00 4.00-11.00 150.00-450.00 11.6 35.7 8.1 295 Glucose (mg/dl) BUN (mg/dl) Creatinine (mg/dl) BUN:Creatinine (1:x) 74.00-106.00 7.00-18.00 0.50-1.30 10.00-20.00 114 24 0.9 26.7 Na (meq/l) K (meq/l) 136.00-145.00 3.50-5.10 138 4.3 INR (PTT:PT) 0.90-1.10 1.1 Troponin I (ng/ml) CPK-MB (ng/ML) 0.02-0.05 0.50-3.60 0.04 Not Drawn Medication Medication Total Dose (Bolus/Oral) Medication Total Dosage/Unit 1% XYLOCAINE 20 mL RADIAL COCKTAIL 5 mL (Bolus) VERSED 2 mg Medications (Bolus/Oral) Medication Time Given Dosage/Unit Administered By Reason Ntg 200mcg Verapamil 2.5mg Heparin RADIAL COCKTAIL 07/09/2017 9:20:37 AM 5 mL (Bolus) Babar Valerio 2500U 5 mL (Bolus) RADIAL COCKTAIL given in lab by Babar Valerio via Radial. Using [Solution Name]. Reason: Ntg 200mcg Verapamil 2.5mg Heparin 2500U. right radial 1% XYLOCAINE 07/09/2017 10:15:27 AM 20 mL Babar Valerio 20 mL 1% XYLOCAINE given in lab by Babar Valerio in Right Radial via Subcutaneous. VERSED 07/09/2017 10:16:09 AM 2 mg Cassidy Morales 2 mg VERSED given in lab by Cassidy Morales, RN via Peripheral IV. Medication (Drip) Medication Time Given Dosage/Unit Concentration/Unit Diluent (ml) Solution IV Solutions 07/09/2017 10:00:36 AM 50 mL (IV) 500 NaCl .9 Patient arrived on IV Solutions via Peripheral IV. Pump/Drip Flow using NaCl .9. Initial Case Assessment Circulatory - Right Pulses Dorsalis Pedis Femoral 2 2 Scale (0,1,2,3,4,d) Circulatory - Left Pulses Dorsalis Pedis Femoral 2 2 Scale (0,1,2,3,4,d) Neurological State Oriented to time-place- Alert Moves all extremities person Respiration - General Respiration Rate SpO2 (%) (B/min) 20 98 Final Case Assessment Cardiovascular HR NIBP 77 120/93 Edema Present Skin color Skin None Normal Warm Dry Neurological State Lethargic Respiration - General Respiration Rate SpO2 (%) O2 (lpm) (B/min) 16 97 2 Chronological Log Time Study Chronological Log 5 mL (Bolus) RADIAL COCKTAIL given in lab by Babar Valerio via Radial. Using [Solution Name]. Re ason: Ntg 200mcg 9:20:37 Verapamil 2.5mg Heparin 2500U. right radial 9:49:03 Patient arrived via Bed. 9:49:05 Patient Name, D.O.B, / Armband Verified By R.N. 9:49:06 Consent signed by the physician and the patient and verified by the [facility] staff. 9:49:08 Pre-op and post- op instructions given; patient acknowledges understanding of instructions. 9:49:12 Allens test performed on the left radial and ulnar artery. Positive 9:49:24 Patient has been NPO for More than 6Hrs. 9:49:25 Skin Breakdown- none 9:49:49 A # 20 IV was noted in the Forearm (left). Grade = 0 10:00:24 Reference ECG taken 10:00:36 Patient arrived on IV Solutions via Peripheral IV. Pump/Drip Flow using NaCl .9. 10:01:13 History and physical on the chart or being dictated. Assessment: Initial Case Right Pulses: Arjun Ped=2, Femoral=2 10:01:15 Left Pulses: Arjun Ped=2, Femoral=2, Brachial=2 Neurological: State=Alert, Ox3, RIVERA Respiration: Resp=20 B/min, SpO2=98 % Vitals capture started with the following parameters, Patient=Adult, Interval=5 min, Initial Pr uynghp=584 mmHg, 10:01:28 Deflation Rate=5 mmHg 10:02:02 HR=81 bpm, VZAA=634/91 mmhg, SpO2=96.0 %, Resp=12 B/min, Guicho=10 10:03:56 HR=81 bpm, LFAY=921/103 mmhg, SpO2=94.0 %, Resp=11 B/min, Guicho=10 10:05:31 Right Radial and groin(s) prepped with 2% chlorhexidine, and draped after a 3 min. waiting time. 10:05:57 HR=80 bpm, BMPL=959/93 mmhg, SpO2=0.0 %, Resp=12 B/min, Guicho=10 10:06:09 Pressure channel 1 zeroed. 10:07:58 HR=83 bpm, VXFB=733/105 mmhg, SpO2=97.0 %, Resp=15 B/min, Guicho=10 10:09:59 HR=80 bpm, OKXQ=459/94 mmhg, SpO2=99.0 %, Resp=12 B/min, Guicho=10 10:12:00 HR=80 bpm, RAAS=064/101 mmhg, SpO2=97 %, Resp=16 B/min, Guicho=10 10:13:27 MD arrived. 10:14:00 HR=81 bpm, FWET=527/99 mmhg, SpO2=99.0 %, Resp=14 B/min, Guicho=10 Time Out. Correct patient, correct procedure, correct physician, power injector loaded, or not loaded with contrast with 10:15:13 surgical team present. Time Out Concurred by MD and individual staff in procedure. 10:15:20 Case Start 10:15:27 20 mL 1% XYLOCAINE given in lab by Babar Valerio in Right Radial via Subcutaneous. 10:16:01 HR=80 bpm, SBZV=413/95 mmhg, SpO2=98.0 %, Resp=14 B/min, Guicho=10 10:16:09 2 mg VERSED given in lab by Cassidy Morales RN via Peripheral IV. 10:17:43 Vitals capture stopped. Vitals capture started with the following parameters, Patient=Adult, Interval=5 min, Initial Pr gwoxpb=988 mmHg, 10:17:56 Deflation Rate=5 mmHg 10:18:23 HR=85 bpm, AXDE=125/100 mmhg, SpO2=98.0 %, Resp=20 B/min, Guicho=10 10:18:51 Access site was Radial Artery. A SHEATH, FR6 RADIAL PRELUDE EASE 11CM FR 6 was advanced into the Radial (right) using the ~JOSELYN HNIQUE~ 10:20:18 technique. 10:20:23 HR=84 bpm, JYEK=894/94 mmhg, SpO2=97.0 %, Resp=16 B/min, Guicho=10 A CATHETER, FR5 OPTITORQUE RADIAL TIG 4.0 FR 5 was advanced over a wire. OMNIPAQUE, 350 MG, 150 ML 150ML 10:21:06 was used for injections. 10:21:37 A WIRE, HYDROSTEER 260CM ANGLED GLIDE 260CM was inserted via Radial (right). 10:22:26 HR=82 bpm, BADO=122/84 mmhg, SpO2=94.0 %, Resp=20 B/min, Guicho=10 10:24:21 Wire removed 10:24:25 HR=79 bpm, ASNG=724/86 mmhg, SpO2=96.0 %, Resp=19 B/min 10:24:27 The LCA was injected and visualized at various angles. OMNIPAQUE, 350 MG, 150ML 150ML used . Recorded Pressure: Ao, HR=76, Condition=Condition 1 10:25:37 (Aorta) Ao 127/77/100 10:26:24 HR=84 bpm, IMBL=521/87 mmhg, SpO2=90.0 %, Resp=17 B/min, Guicho=10 10:27:59 The RCA was injected and visualized at various angles. OMNIPAQUE, 350 MG, 150ML 150ML used . 10:28:25 HR=77 bpm, NWFJ=902/89 mmhg, SpO2=97 %, Resp=19 B/min, Guihco=10 After removing the current catheter a MPA-2 INFINITI CATHETER FR 6 was advanced over a WIRE, EX CHANGE 260CM 10:28:57 3MMJ 260CM. 10:30:00 The LV was manually injected with 8 cc's and visualized. OMNIPAQUE, 350 MG, 150ML 150ML use d. 10:30:26 HR=86 bpm, CUYE=951/89 mmhg, SpO2=97.0 %, Resp=23 B/min, Guicho=10 Recorded Pressure: LV, HR=77, Condition=Condition 1 10:30:38 (Left Ventricle) LV 122/12/28 Recorded Pressure: LV, HR=79, Condition=Condition 1 10:31:43 (Left Ventricle) LV 122/16/27 10:32:26 HR=78 bpm, CZCJ=916/85 mmhg, SpO2=98.0 %, Resp=20 B/min, Guicho=10 10:34:23 HR=77 bpm, YBGR=479/89 mmhg, SpO2=97.0 %, Resp=16 B/min, Guicho=10 10:37:01 HR=77 bpm, EZYQ=567/94 mmhg, SpO2=99.0 %, Resp=16 B/min, Guicho=10 10:38:25 HR=86 bpm, ABPZ=086/89 mmhg, Resp=16 B/min 10:39:00 The LV was injected at 8 cc/sec for a total of 35. OMNIPAQUE, 350 MG, 50ML 50ML used. 10:40:26 HR=83 bpm, PFUW=837/99 mmhg, Resp=18 B/min Recorded Pressure: LV, Ao, HR=80, Condition=Condition 1 10:40:56 (Left Ventricle) LV 145/16/25, (Aorta) Ao 122/75/93 10:41:45 Catheter was removed 10:41:55 Case End 10:42:27 HR=77 bpm, FQAN=229/91 mmhg, Resp=18 B/min, Guicho=9 10:44:27 HR=77 bpm, KISL=950/93 mmhg, Resp=18 B/min, Guicho=9 10:45:06 Vitals capture stopped. Assessment: Final Case, HR=77 BPM, XXVQ=487/93 mmhg, Edema=None, Color=Normal, Skin = Warm, Dry 10:45:08 Neurological: State=Lethargic Respiration: Resp=16 B/min, SpO2=97 %, O2=2 lpm 10:45:54 Sheath removed; pressure applied to access site. Radial Compression Device Used. 15 mLs of air placed in BAND, RADIAL COMPRESSION TR SHORT 24 24 CM. Affected 10:45:56 hand 98 % O2 saturation. 10:46:22 No case complications noted. 10:46:26 Bedside Report will be given. 10:47:07 A Left Heart Cath was performed. 10:51:35 Patient moved to [facility] End Study - Contrast Media Used In Study Contrast Total Opened (mL) Total Used (mL) Total Wasted (mL) Omnipaque 110 110 0 End Study - Maximum Contrast Load Max Contrast Load (mL) 361.1 End Study - Radiation Exposure Fluoro Time (minutes) 3.9 End Study - Patient Disposition Complications Transferred To Telemetry Bed
--- NOTE | 2017-07-09 11:11 | MA ---
cc: Babar Valerio MD, Joshua A MD Bartholomew, Beth A MD DATE: 07/09/2017 PROCEDURE: Left heart catheterization, selective coronary angiography, left ventriculography. PROCEDURE NOTES: The patient was brought to the cardiac catheterization laboratory in a fasting state after having signed informed consent. The right radial region was prepped and draped as per policy and anesthetized with 1% lidocaine. Arterial access was obtained via the right radial artery and a 6-Lithuanian sheath placed. Coronary arteriography was performed using a Dumas catheter. Left ventriculography was done using a multipurpose catheter. There were no apparent, immediate complications. Her arteriotomy site was closed with a radial artery compression band. HEMODYNAMIC DATA: Left ventricle 130 with an end diastolic pressure of 22. Aorta 122/75 with a mean of 93. There was no significant transvalvular aortic gradient on pullback of the pigtail catheter. CORONARY ARTERIOGRAPHY: The left main is a fairly large caliber vessel with 10% mid to distal stenosis. The left anterior descending is also a large vessel, wrapping around the apex. There is 40% proximal disease. The mid to distal LAD appears to be angiographically normal. The LAD gives rise to a fairly large diagonal which has minimal disease at its ostium. The left circumflex is a medium-sized vessel giving rise to a medium sized obtuse marginal, which is angiographically normal. The proximal left circumflex is tortuous. In the mid left circumflex, right after the takeoff of the obtuse marginal, there is eccentric 40 to 60% percent stenosis. The distal left circumflex has diffuse up to 20% disease. The right coronary artery is a large, dominant vessel, which has diffuse proximal to mid disease resulting in up to 30 percent stenosis. The distal vessel also has 20 to 25% disease right before the takeoff of the posterior descending artery, which is normal. The distal right coronary just after the takeoff of the posterior descending artery has 40 percent stenosis. LEFT VENTRICULOGRAPHY: Contrast injection of the left ventricle reveals severe global hypokinesis. Ejection fraction is estimated at 25 percent. There is mild to moderate mitral regurgitation. CONCLUSIONS: 1. Moderate left circumflex and right coronary artery disease. 2. Right dominant system. 3. Severe nonischemic cardiomyopathy with ejection fraction of 25%. 4. Mild to moderate mitral regurgitation. MD BETY Pimentel/BERNADINE , 10:52 AM , 11:10 AM [facility]
[2017-07-09] MEDS ORDERED: IOHEXOL 350 MG/ML 50 ML BTL (for Cath Lab) OTHER ONE (11:21)
[2017-07-09] MEDS ORDERED: IOHEXOL 350 MG/ML 100 ML BTL (for Cath Lab) OTHER ONE (11:21)
--- NOTE | 2017-07-09 20:02 | HHI.PR ---
Subjective Remarks Patient is in good spirits despite being n.p.o. She states she has undergoing a cardiac catheterization today. Objective Vitals Vital Signs Date Time Temp Pulse Resp B/P (MAP) Pulse Ox O2 Delivery O2 Flow Rate FiO2 07/09/17 18:00 85 07/09/17 17:00 82 07/09/17 16:00 84 07/09/17 15:15 97.9 83 18 127/91 (103) 97 07/09/17 15:15 97 Room Air 07/09/17 15:00 79 07/09/17 14:00 82 07/09/17 13:00 76 07/09/17 12:00 78 07/09/17 11:00 97.4 78 24 123/94 (104) 100 07/09/17 11:00 75 07/09/17 11:00 100 Nasal Cannula 2.00 07/09/17 09:00 80 07/09/17 08:00 84 07/09/17 07:45 97.5 81 18 135/102 (113) 100 07/09/17 07:30 100 Nasal Cannula 2.00 07/09/17 07:00 81 07/09/17 06:00 76 07/09/17 05:00 82 07/09/17 04:00 78 07/09/17 04:00 98.3 78 18 123/88 (100) 100 07/09/17 04:00 Room Air 07/09/17 03:00 79 07/09/17 02:00 72 07/09/17 01:00 75 07/09/17 00:00 77 07/09/17 00:00 Room Air 07/09/17 00:00 98.4 77 18 111/74 (86) 98 07/08/17 23:00 80 07/08/17 22:00 76 07/08/17 21:00 86 07/08/17 20:00 83 07/08/17 20:00 98.2 83 20 146/99 (115) 99 07/08/17 20:00 Room Air I/O 07/08/17 07/08/17 07/08/17 07/09/17 07/09/17 07/09/17 07:00 15:00 23:00 07:00 15:00 23:00 Intake Total 240 ml 720 ml 480 ml 840 ml Output Total 900 ml 1100 ml 800 ml 700 ml Balance -660 ml -380 ml -320 ml 140 ml Intake Oral 240 ml 720 ml 480 ml 840 ml Output Urine Total 900 ml 1100 ml 800 ml 700 ml # Voids 5 # Bowel Movements 0 1 0 Result Diagram: 07/07/1733 07/07/1733 Objective Remarks GENERAL: Well-nourished, well-developed patient. Pleasant affect SKIN: Warm and dry. HEAD: Normocephalic. EYES: No scleral icterus. No injection or drainage. NECK: Supple, trachea midline. No JVD or lymphadenopathy. CARDIOVASCULAR: Regular rate and rhythm without murmurs, gallops, or rubs. RESPIRATORY: Trace atelectasis in bilateral bases. No accessory muscle use. GASTROINTESTINAL: Abdomen soft, non-tender, nondistended. EXTREMITIES: No cyanosis, or trace ankle edema NEUROLOGICAL: Awake, alert, and oriented x 3. Non-focal. A/P Assessment and Plan 67-year-old black female admitted for suspected new onset acute systolic CHF Congestive heart failure Dilated cardiomyopathy on testing Patient has responded well to diuresis Undergoing cardiac catheterization today to rule out ischemic causes Continue aspirin, Coreg, losartan, potassium Appreciate cardiology intervention Hypertension Continue with current meds (see above) Acute renal insufficiency Resolved DVT prophylaxis Heparin Adal Araujo MD Jul 09, 2017 20:02
[2017-07-10] VITALS (23 sets, daily range): BP systolic 101–143; BP diastolic 72–101; PULSE 68–86; RESP 14–18; TEMP 97.8–98.6; O2SAT 96–100
[2017-07-10] MEDS: HEPARIN SODIUM - SQ 10,000 UNITS/ML VIAL SQ SCH ×4 (01:02→22:31)
[2017-07-10] MEDS: cloNIDine HCL 0.1 MG TAB PO PRN (01:08)
[2017-07-10 06:30] LABS: BICARBONATE 25.4 MEQ/L (21.0-32.0); CALCIUM 9.1 MG/DL (8.5-10.1); CREATININE 1.08 MG/DL (0.50-1.00)
[2017-07-10] MEDS: CARVEDILOL 6.25 MG TAB PO SCH ×2 (10:34→22:30)
[2017-07-10] MEDS: POTASSIUM CHLORIDE 10 MEQ CONTROLLED RELEASE TAB PO SCH ×2 (10:34→21:00)
[2017-07-10] MEDS: FUROSEMIDE 40 MG TAB PO SCH (10:34)
[2017-07-10] MEDS: LOSARTAN 25 MG TAB PO SCH (10:34)
[2017-07-10] MEDS: ASPIRIN 325 MG TAB PO SCH (10:35)
[2017-07-10] MEDS: SODIUM CHLORIDE 0.9% FLUSH 10 ML FLUSH IV FLUSH SCH ×2 (10:35→21:00)
[2017-07-10] MEDS: SODIUM CHLOR 0.9% 1000 ML INJ 1,000 ML IV SCH ×2 (12:14→14:04)
[2017-07-10] MEDS ORDERED: FUROSEMIDE 40 MG/4 ML VIAL IV PUSH ONE (16:15)
--- NOTE | 2017-07-10 17:21 | PD.CARD.PN ---
Subjective Subjective Remarks Pt reports SHOB this afternoon Objective Medications Current Medications Medications (Trade) Dose Ordered Sig/Mike Route Start Time Stop Time Status Last Admin (NS Flush) 2 ml UNSCH PRN IV FLUSH 07/03/17 23:45 (NS Flush) 2 ml BID IV FLUSH 07/04/17 09:00 07/10/17 10:35 (Tylenol) 650 mg Q4H PRN PO 07/03/17 23:45 (Zofran Inj) 4 mg Q6H PRN IVP 07/03/17 23:45 (Heparin Inj) 5,000 units Q8H SQ 07/04/17 00:00 07/10/17 16:36 (Narcan Inj) 0.4 mg UNSCH PRN IV PUSH 07/03/17 23:45 (Catapres) 0.1 mg Q6H PRN PO 07/04/17 00:45 07/10/17 01:08 (KCl) 30 meq DAILY PO 07/05/17 09:00 07/10/17 10:34 (Aspirin) 325 mg DAILY PO 07/05/17 09:00 07/10/17 10:35 (Lasix) 40 mg DAILY PO 07/06/17 09:00 07/10/17 10:34 (Cozaar) 25 mg DAILY PO 07/06/17 08:00 07/10/17 10:34 (Colace) 100 mg BID PRN PO 07/07/17 06:30 (Lactulose Liq) 30 ml TID PRN PO 07/07/17 06:30 (Milk Of Magnesia Liq) 30 ml Q6H PRN PO 07/07/17 06:30 (Coreg) 12.5 mg Q12HR PO 07/08/17 21:00 07/10/17 10:34 Sodium Chloride 1,000 ml @ 60 mls/hr [id number] IV 07/08/17 10:14 07/13/17 10:13 (Benadryl) 50 mg ADDICTIONS RECOVERY SPECIALIST PO 07/08/17 10:15 07/12/17 10:14 07/09/17 09:41 (Valium) 10 mg ADDICTIONS RECOVERY SPECIALIST PO 07/08/17 10:15 07/12/17 10:14 07/09/17 09:42 (Versed Inj) 1 mg ADDICTIONS RECOVERY SPECIALIST IV PUSH 07/08/17 10:15 07/12/17 10:14 Vital Signs / I&O Vital Signs Date Time Temp Pulse Resp B/P (MAP) Pulse Ox O2 Delivery O2 Flow Rate FiO2 07/10/17 16:00 74 07/10/17 15:00 98.2 71 18 116/74 (88) 100 07/10/17 15:00 100 Room Air 07/10/17 15:00 73 07/10/17 14:00 75 07/10/17 13:00 72 07/10/17 12:00 73 07/10/17 11:00 98.0 71 14 101/72 (82) 96 07/10/17 11:00 96 Room Air 07/10/17 11:00 72 07/10/17 10:00 79 07/10/17 09:00 73 07/10/17 08:00 98 Room Air 07/10/17 08:00 74 07/10/17 08:00 98.5 81 16 128/88 (101) 98 07/10/17 07:00 81 07/10/17 04:00 98.4 82 18 120/85 (97) 96 07/10/17 03:54 68 07/10/17 00:04 77 07/10/17 00:00 98.6 81 18 143/101 (115) 100 07/09/17 20:00 98.0 84 18 132/94 (107) 98 07/09/17 19:48 86 07/09/17 18:00 85 I/O 07/09/17 07/09/17 07/09/17 07/10/17 07/10/17 07/10/17 07:00 15:00 23:00 07:00 15:00 23:00 Intake Total 480 ml 840 ml Output Total 800 ml 700 ml Balance -320 ml 140 ml Intake Oral 480 ml 840 ml Output Urine Total 800 ml 700 ml # Voids 2 # Bowel Movements 0 Physical Exam GENERAL: Well developed, well nourished. No acute distress. HEENT: Jugular venous pressure is normal. CHEST: Lungs rales in bases to auscultation bilaterally. Unlabored respiratory effort. CARDIAC: Regular rate and rhythm without S3, S4, holosystolic murmur. ABDOMEN: Soft, nontender, no hepatosplenomegaly. Bowel sounds present. EXTREMITIES: No clubbing, cyanosis, or edema. Laboratory Laboratory Tests Test 07/10/17 05:11 Blood Urea Nitrogen 21 MG/DL Creatinine 1.08 MG/DL Random Glucose 94 MG/DL Calcium Level 9.1 MG/DL Sodium Level 142 MEQ/L Potassium Level 4.6 MEQ/L Chloride Level 108 MEQ/L Carbon Dioxide Level 25.4 MEQ/L Anion Gap 9 MEQ/L Estimat Glomerular Filtration Rate 61 ML/MIN Assessment and Plan Problem List: (1) Acute CHF (congestive heart failure) ICD Codes: I50.9 - Heart failure, unspecified Plan: nonischemic cardiomyopathy by cath EF 25%; life vest on -fluid and sodium restrictions discussed -change to entresto, -decrease coreg as BP is a bit low -up lasix to BID for now -ok for d/c in am (2) Abnormal EKG ICD Codes: R94.31 - Abnormal electrocardiogram [ECG] [EKG] (3) Dyspnea ICD Codes: R06.00 - Dyspnea, unspecified (4) Mitral regurgitation ICD Codes: I34.0 - Nonrheumatic mitral (valve) insufficiency Plan: mild to moderate by cath (5) Cardiomyopathy ICD Codes: I42.9 - Cardiomyopathy, unspecified Nia Ramsey MD Jul 10, 2017 17:21
--- NOTE | 2017-07-10 21:02 | HHI.PR ---
Objective Vitals Vital Signs Date Time Temp Pulse Resp B/P (MAP) Pulse Ox O2 Delivery O2 Flow Rate FiO2 07/10/17 19:48 Room Air 21 07/10/17 18:00 83 07/10/17 17:00 76 07/10/17 16:00 74 07/10/17 15:00 98.2 71 18 116/74 (88) 100 07/10/17 15:00 100 Room Air 07/10/17 15:00 73 07/10/17 14:00 75 07/10/17 13:00 72 07/10/17 12:00 73 07/10/17 11:00 98.0 71 14 101/72 (82) 96 07/10/17 11:00 96 Room Air 07/10/17 11:00 72 07/10/17 10:00 79 07/10/17 09:00 73 07/10/17 08:00 98 Room Air 07/10/17 08:00 74 07/10/17 08:00 98.5 81 16 128/88 (101) 98 07/10/17 07:00 81 07/10/17 04:00 98.4 82 18 120/85 (97) 96 07/10/17 03:54 68 07/10/17 00:04 77 07/10/17 00:00 98.6 81 18 143/101 (115) 100 I/O 07/09/17 07/09/17 07/09/17 07/10/17 07/10/17 07/10/17 07:00 15:00 23:00 07:00 15:00 23:00 Intake Total 480 ml 840 ml 480 ml Output Total 800 ml 700 ml 1050 ml Balance -320 ml 140 ml -570 ml Intake Oral 480 ml 840 ml 480 ml Output Urine Total 800 ml 700 ml 1050 ml # Voids 2 # Bowel Movements 0 Result Diagram: 07/07/17 0733 07/10/17 0511 Objective Remarks GENERAL: Well-nourished, well-developed patient. Pleasant affect SKIN: Warm and dry. HEAD: Normocephalic. EYES: No scleral icterus. No injection or drainage. NECK: Supple, trachea midline. No JVD or lymphadenopathy. CARDIOVASCULAR: Regular rate and rhythm without murmurs, gallops, or rubs. RESPIRATORY: Trace atelectasis in bilateral bases. No accessory muscle use. GASTROINTESTINAL: Abdomen soft, non-tender, nondistended. EXTREMITIES: No cyanosis, or trace ankle edema NEUROLOGICAL: Awake, alert, and oriented x 3. Non-focal. A/P Assessment and Plan 67-year-old black female admitted for suspected new onset acute systolic CHF Congestive heart failure Dilated cardiomyopathy on testing Lasix increased to 40mg a.m., 20mg p.m. dosing Cardiac catheterization showed non-stentable areas of distal occlusion, medical management recommended Continue aspirin, Coreg, losartan, potassium Appreciate cardiology intervention Hypertension Continue with current meds (see above) Acute renal insufficiency Resolved DVT prophylaxis Heparin Discharge Planning Patient originally requested SNF/Rehab, but may be interested in Home Health now Plan for discharge tomorrow Adal Araujo MD Jul 10, 2017 21:02
[2017-07-10] MEDS: SACUBITRIL/VALSARTAN 24 MG-26 MG TAB PO SCH (22:30)
[2017-07-11] VITALS (14 sets, daily range): BP systolic 103–125; BP diastolic 67–90; PULSE 72–88; RESP 16–20; TEMP 97.7; O2SAT 96–98
[2017-07-11] MEDS: SODIUM CHLOR 0.9% 1000 ML INJ 1,000 ML IV SCH (03:31)
[2017-07-11] MEDS ORDERED: FUROSEMIDE 40 MG TAB PO SCH (09:00)
[2017-07-11] MEDS: SODIUM CHLORIDE 0.9% FLUSH 10 ML FLUSH IV FLUSH SCH (09:00)
--- NOTE | 2017-07-11 09:26 | HHI.FF ---
Face to Face Verification Diagnosis: (1) Acute CHF (congestive heart failure) (2) Dyspnea (3) Mitral regurgitation (4) Cardiomyopathy Physical Therapy Order: Evaluate and Treat Home Health Nursing Order: Medical education Signs/symptoms of disease process CHF education Medication education-adverse effect Nursing assessment with vital signs I have seen patient Nasima Gilbert on 07/11/17. My clinical findings support the need for the requested home health care services because: Ltd mobility - disease progression Patient has SOB Deconditioned w/ increased weakness I certify that my clinical findings support that this patient is homebound because: Unsteady gait/balance Unsafe to leave home unassisted Unable to use public transportation Poor cardiac reserve Telemedicine for daily weights (CHF Monitoring) Adal Araujo MD Jul 11, 2017 09:26
[2017-07-11] MEDS: HEPARIN SODIUM - SQ 10,000 UNITS/ML VIAL SQ SCH (09:28)
[2017-07-11] MEDS: SACUBITRIL/VALSARTAN 24 MG-26 MG TAB PO SCH (09:29)
[2017-07-11] MEDS: CARVEDILOL 6.25 MG TAB PO SCH (09:29)
[2017-07-11] MEDS: ASPIRIN 325 MG TAB PO SCH (09:29)
[2017-07-11] MEDS ORDERED: FURO40TA PO (09:30)
[2017-07-11] MEDS ORDERED: ASA325 PO (09:30)
[2017-07-11] MEDS ORDERED: CARV6.25 PO (09:30)
[2017-07-11] MEDS ORDERED: CLON.1 PO (09:30)
[2017-07-11] MEDS ORDERED: SACU1TAB PO (09:30)
[2017-07-11] MEDS ORDERED: KLOR10TA PO (09:30)
[2017-07-11] MEDS: POTASSIUM CHLORIDE 10 MEQ CONTROLLED RELEASE TAB PO SCH (09:31)
--- NOTE | 2017-07-11 17:06 | HHI.DS ---
Discharge Summary Admission Date Jul 04, 2017 at 10:27 Discharge Date: Jul 11, 2017 Admitting Diagnosis New Onset CHF; Pleural Effusion; Hypoxia (1) Acute CHF (congestive heart failure) ICD Code: I50.9 - Heart failure, unspecified (2) Mitral regurgitation ICD Code: I34.0 - Nonrheumatic mitral (valve) insufficiency Procedures Cardiac catheterization on 07/09/2017 Brief History - From Admission 67-year-old white female being admitted for suspected new onset systolic acute CHF Patient was in her usual state of health until 2-3 weeks ago when she began experiencing a sudden onset of shortness of breath. This gradually worsened with time, developed orthopnea as well. Shortness of breath worsens substantially with any type of exertion including getting dressed or ambulating short distances. Denies any celi chest pain. Denies any fevers or chills. Denies any worsening lower extremity edema apart from her baseline edema which he attributes to being in a standing position all day at work. Patient second to the ER because of shortness of breath became constant at rest. In the emergency room a chest x-ray was obtained which independently reviewed which shows mild diffuse pulmonary edema. The angiogram was also obtained which shows a pleural effusion but otherwise is negative for pulmonary embolus. No acute infiltrates are noted on either study. CBC/BMP: 07/07/17 0733 07/10/17 0511 Significant Findings Laboratory Tests Test 07/10/17 05:11 Blood Urea Nitrogen 21 MG/DL (7-18) Creatinine 1.08 MG/DL (0.50-1.00) Chloride Level 108 MEQ/L (98-107) Estimat Glomerular Filtration Rate 61 ML/MIN (>89) PE at Discharge GENERAL: Well-nourished, well-developed patient. Pleasant affect SKIN: Warm and dry. HEAD: Normocephalic. EYES: No scleral icterus. No injection or drainage. NECK: Supple, trachea midline. No JVD or lymphadenopathy. CARDIOVASCULAR: Regular rate and rhythm without murmurs, gallops, or rubs. RESPIRATORY: Trace atelectasis in bilateral bases. No accessory muscle use. GASTROINTESTINAL: Abdomen soft, non-tender, nondistended. EXTREMITIES: No cyanosis, or trace ankle edema NEUROLOGICAL: Awake, alert, and oriented x 3. Non-focal. Hospital Course 67-year-old female who presented with dyspnea and was found to have new onset of CHF. Echocardiogram revealed an ejection fraction of 35%. She was taken for heart catheterization to rule out ischemic causes but her vessels were clear. No stents were placed. She was given a LifeVest to wear. On discharge planning she initially wanted to go to a longterm facility, but changed her mind last minute decided to elect for home health care. She was diuresed during her stay and her fluids were balanced. Patient passed an oxygen walk test and was ambulating in the hallway without oxygen on her final day, smiling and optimistic about going home. She will be followed by home health care and has purchased a scale to follow daily weights in order to report to home health care for further management. She has a follow-up with Dr. Ramsey in the next 2 weeks. Pt Condition on Discharge: Good Discharge Disposition: Disch w/ Home Health Serv Discharge Time: <= 30 minutes Discharge Instructions DIET: Follow Instructions for: Heart Healthy Diet Activities you can perform: Weight Bearing as Adal Gamboa MD Jul 11, 2017 17:06
== END 2017-07-11 11:39 | disposition home health service (06) | DRG 287 ==
LOC: PHED 21:13 → UNDOADMIN 23:23 → PHEDA 23:23 → INTOOBSV 23:35 → PHEDA 23:35 → PHICU 07-04 00:32 → OBSVTOIN 07-04 10:27 → PH3A 07-06 17:54 → HCIS 07-07 18:05
PROVIDERS: ADMIT Family Medicine; ATTEND Family Medicine
PROC: B2151ZZ Fluoroscopy of Left Heart using Low Osmolar Contrast (ICD-10-PCS; 2017-07-09)
PROC: B2111ZZ Fluoroscopy of Multiple Coronary Arteries using Low Osmolar Contrast (ICD-10-PCS; 2017-07-09)
PROC: 4A023N7 Measurement of Cardiac Sampling and Pressure, Left Heart, Percutaneous Approach (ICD-10-PCS; principal; 2017-07-09 12:15)
DX: I11.0 Hypertensive heart disease with heart failure (principal); I47.2 Ventricular tachycardia; I47.1 Supraventricular tachycardia; R09.02 Hypoxemia; I50.21 Acute systolic (congestive) heart failure; I34.0 Nonrheumatic mitral (valve) insufficiency; I42.0 Dilated cardiomyopathy; I25.10 Atherosclerotic heart disease of native coronary artery without angina pectoris; N28.9 Disorder of kidney and ureter, unspecified; Z87.891 Personal history of nicotine dependence
CPT/HCPCS: 71045; 71275; 78452; 80048; 80053; 82550; 82552; 83690; 83735; 83880; 84443; 84484; 85025; 85610; 85730; 93005; 93017; 93306; 93458; 94618; 94640; 94664; 96374; 96375; 99152; 99153; A9502; C1769; C1893; G8987-GP; G8988-GP; J1644; J1940; J2250; J2785; J2930; J3010; Q0163; Q9967

== ENCOUNTER → 2017-07-20 | Outpatient (CLI) | payer MEDICARE ==
[~2017-07-20] MED LIST changes: +ASA325 PO; +CARV6.25 PO; +CLON.1 PO; +FURO40TA PO; +KLOR10TA PO; -NAPR40TA PO; +SACU1TAB PO
[2017-07-20 07:42] LABS: CALCIUM 9.7 MG/DL (8.5-10.1); CREATININE 1.47 MG/DL (0.50-1.00)
== END ==
LOC: CLAB 06:48
PROVIDERS: ATTEND Internal Medicine Interventional Cardiology
DX: I50.9 Heart failure, unspecified (principal); Z79.899 Other long term (current) drug therapy
CPT/HCPCS: 36415; 80048

== ENCOUNTER → 2017-08-01 | Outpatient (CLI) | payer MEDICARE ==
[~2017-08-01] MED LIST changes: +APIX5TAB PO; +METO1TAB42 PO
[2017-08-01 07:32] LABS: BICARBONATE 23.7 MEQ/L (21.0-32.0); CALCIUM 9.9 MG/DL (8.5-10.1); CREATININE 1.4 MG/DL (0.50-1.00)
== END ==
LOC: CLAB 06:43
PROVIDERS: ATTEND Internal Medicine Interventional Cardiology
DX: I50.9 Heart failure, unspecified (principal); Z79.899 Other long term (current) drug therapy
CPT/HCPCS: 36415; 80048

== ENCOUNTER 2017-08-02 10:37 | Inpatient (IN) | payer MEDICARE ==
[~2017-08-02] VITALS: Ht 167.6 cm; Wt 66.0 kg
[2017-08-02] VITALS (9 sets, daily range): BP systolic 90–137; BP diastolic 69–79; PULSE 99–130; RESP 12–22; TEMP 97.5–98.8; O2SAT 96–98
[~2017-08-02 10:37] MED LIST changes: -APIX5TAB PO; -METO1TAB42 PO
[2017-08-02] MEDS ORDERED: SODIUM CHLORIDE 0.9% FLUSH 10 ML FLUSH IVF PRN (11:00)
[2017-08-02] MEDS ORDERED: DILTIAZEM HCL 25 MG/5 ML VIAL IV ONE (11:15)
[2017-08-02] MEDS ORDERED: METOPROLOL TARTRATE 5 MG/5 ML VIAL IV PUSH ONE ×2 (11:30→13:30)
[2017-08-02 11:35] LABS: AUTOMATED NEUTROPHIL # 4.4 TH/MM3 (1.8-7.7); BASOPHIL # 0.1 TH/MM3 (0-0.2); EOSINOPHIL # 0.2 TH/MM3 (0-0.4); EOSINOPHIL % 2.2 % (0.0-4.0); HEMATOCRIT 38.7 % (35.0-46.0); HEMOGLOBIN 13.1 GM/DL (11.6-15.3); LYMPH % 34.4 % (9.0-44.0); LYMPHOCYTE # 2.7 TH/MM3 (1.0-4.8); MEAN CELL VOLUME 89.3 FL (80.0-100.0); MEAN CORPUSCULAR HEMOGLOBIN 30.3 PG (27.0-34.0); MEAN CORPUSCULAR HGB CONC 33.9 % (32.0-36.0); MEAN PLATELET VOLUME 6.4 FL (7.0-11.0); MONO % 7.2 % (0.0-8.0); MONOCYTE # 0.6 TH/MM3 (0-0.9); NEUT % 55.2 % (16.0-70.0); PLATELET COUNT 426 TH/MM3 (150-450); RED BLOOD COUNT 4.33 MIL/MM3 (4.00-5.30); RED CELL DISTRIBUTION WIDTH 14.7 % (11.6-17.2)
--- NOTE | 2017-08-02 11:40 | RADRPT ---
EXAM DATE/TIME: 08/02/2017 11:25 [facility] COMPARISON: CHEST SINGLE AP, July 03, 2017, 22:05. INDICATIONS : Increase heart rate. Patient wearing external defibrillator for 1 month. MEDICAL HISTORY : Atrial fibrillation. SURGICAL HISTORY : None. ENCOUNTER: Initial ACUITY: 1 day PAIN SCORE: 0/10 LOCATION: Bilateral chest FINDINGS: Multiple overlying monitor leads and apparatus PA and lateral views of the chest demonstrate the lungs to be symmetrically aerated without evidence of mass, infiltrate or effusion. The cardiomediastinal contours are unremarkable. Osseous structure s are intact. CONCLUSION: No acute disease Abel Bass MD on August 02, 2017 at 11:36 Board Certified Radiologist. This report was verified electronically.
[2017-08-02 11:48] LABS: INTERNATIONAL NORMALIZED RATIO 1.1 RATIO; PROTHROMBIN TIME - PATIENT 10.7 SEC (9.8-11.6)
--- NOTE | 2017-08-02 12:04 | PD ---
HPI Chief Complaint: Cardiac Complaint Time Seen by Provider: 10:56 Travel History International Travel<30 days: No Contact w/Intl Traveler<30days: No Traveled to known affect area: No History of Present Illness HPI 67-year-old female with PMH of MICAELA, CHF, CAD, LifeVest, mitral regurg, nonischemic cardiomyopathy, nonsustained V. tach presents to the ED at the behest of her creosoting engineer Dr. Ramsey. Patient saw Dr. Ramsey for a routine follow-up visit today. At that time EKG showed new onset A. fib with second-degree AV block. On presentation the patient states that she is feeling well. She endorses a chronic nonproductive cough with mild sinus congestion. She denies chest pain, palpitations, shortness of breath, diaphoresis, abdominal pain, nausea, vomiting, lower extremity edema. She takes an aspirin daily. She endorses compliance with her daily medications. She did not take her morning medications today. PFSH Past Medical History Heart Rhythm Problems: Yes Cardiovascular Problems: Yes Hypertension: Yes Respiratory: Yes ?: Not Social History Alcohol Use: Yes (1 drink per day ) Tobacco Use: Yes (1/2 PPD) Substance Use: No Allergies-Medications (Allergen,Severity, Reaction): Coded Allergies: No Known Allergies (Unverified Allergy, Unknown, 08/02/17) Reported Meds & Prescriptions Reported Meds & Active Scripts Active Px Aspirin (Aspirin) 325 Mg Tab 325 Mg PO DAILY 30 Days Furosemide 40 Mg Tab 40 Mg PO BID@,18 30 Days Klor-Con 10 (Potassium Chloride) 10 Meq Tab 20 Meq PO BID 30 Days Catapres (Clonidine) 0.1 Mg Tab 0.1 Mg PO Q6H PRN 10 Days Coreg (Carvedilol) 6.25 Mg Tab 6.25 Mg PO Q12HR 30 Days Entresto (Sacubitril-Valsartan) 24-26 Mg Tab 1 Tab PO BID 30 Days Review of Systems Except as stated in HPI: all other systems reviewed are Neg Physical Exam Narrative GENERAL: Well-nourished, well-developed -[place] female in no acute distress. SKIN: Focused skin assessment warm/dry. Wearing a LifeVest. HEAD: Normocephalic. EYES: No scleral icterus. No injection or drainage. NECK: Supple, trachea midline. No JVD or lymphadenopathy. CARDIOVASCULAR: Regular, tachycardic rate and rhythm without murmurs, gallops, or rubs. RESPIRATORY: Breath sounds clear and equal bilaterally. No accessory muscle use. GASTROINTESTINAL: Abdomen soft, non-tender, nondistended. MUSCULOSKELETAL: No cyanosis, or edema. Moves extremities spontaneously. BACK: Nontender without obvious deformity. No CVA tenderness. Data Data Last Documented VS Vital Signs Date Time Temp Pulse Resp B/P (MAP) Pulse Ox O2 Delivery O2 Flow Rate FiO2 08/02/17 13:42 110 16 123/69 (87) 98 08/02/17 13:00 Room Air 08/02/17 10:42 97.5 Orders Orders Electrocardiogram (08/02/17 10:56) Ckmb (Isoenzyme) Profile (08/02/17 10:56) Complete Blood Count With Diff (08/02/17 10:56) Comprehensive Metabolic Panel (08/02/17 10:56) Magnesium (Mg) (08/02/17 10:56) Prothrombin Time / Inr (Pt) (08/02/17 10:56) Act Partial Throm Time (Ptt) (08/02/17 10:56) Troponin I (08/02/17 10:56) Ecg Monitoring (08/02/17 10:56) Bilateral Bp Monitoring (08/02/17 10:56) Iv Access Insert/Monitor (08/02/17 10:56) Oximetry (08/02/17 10:56) Sodium Chloride 0.9% Flush (Ns Flush) (08/02/17 11:00) Chest, Pa & Lat (08/02/17 10:56) B-Type Natriuretic Peptide (08/02/17 11:03) Vascular Access Team Consult/P PRN (08/02/17 11:04) Vascular Poc Ultrasound (08/02/17 ) Metoprolol Tartrate Inj (Lopressor Inj) (08/02/17 11:30) Electrocardiogram (08/02/17 ) CKMB (08/02/17 11:15) CKMB% (08/02/17 11:15) Enoxaparin Inj (Lovenox Inj) (08/02/17 12:45) Metoprolol Tartrate Inj (Lopressor Inj) (08/02/17 13:30) Admit Order (Ed Use Only) (08/02/17 13:55) Labs Laboratory Tests Test 08/02/17 11:15 White Blood Count 8.0 TH/MM3 Red Blood Count 4.33 MIL/MM3 Hemoglobin 13.1 GM/DL Hematocrit 38.7 % Mean Corpuscular Volume 89.3 FL Mean Corpuscular Hemoglobin 30.3 PG Mean Corpuscular Hemoglobin Concent 33.9 % Red Cell Distribution Width 14.7 % Platelet Count 426 TH/MM3 Mean Platelet Volume 6.4 FL Neutrophils (%) (Auto) 55.2 % Lymphocytes (%) (Auto) 34.4 % Monocytes (%) (Auto) 7.2 % Eosinophils (%) (Auto) 2.2 % Basophils (%) (Auto) 1.0 % Neutrophils # (Auto) 4.4 TH/MM3 Lymphocytes # (Auto) 2.7 TH/MM3 Monocytes # (Auto) 0.6 TH/MM3 Eosinophils # (Auto) 0.2 TH/MM3 Basophils # (Auto) 0.1 TH/MM3 CBC Comment DIFF FINAL Differential Comment Prothrombin Time 10.7 SEC Prothromb Time International Ratio 1.1 RATIO Activated Partial Thromboplast Time 25.9 SEC Blood Urea Nitrogen 36 MG/DL Creatinine 1.44 MG/DL Random Glucose 84 MG/DL Total Protein 8.4 GM/DL Albumin 4.2 GM/DL Calcium Level 10.0 MG/DL Magnesium Level 2.5 MG/DL Alkaline Phosphatase 72 U/L Aspartate Amino Transf (AST/SGOT) 23 U/L Alanine Aminotransferase (ALT/SGPT) 23 U/L Total Bilirubin 0.2 MG/DL Sodium Level 138 MEQ/L Potassium Level 4.7 MEQ/L Chloride Level 104 MEQ/L Carbon Dioxide Level 22.3 MEQ/L Anion Gap 12 MEQ/L Estimat Glomerular Filtration Rate 44 ML/MIN Total Creatine Kinase 110 U/L Creatine Kinase MB 2.1 NG/ML Troponin I LESS THAN 0.02 NG/ML MDM Medical Decision Making Medical Screen Exam Complete: Yes Emergency Medical Condition: Yes Differential Diagnosis Dysrhythmia versus CHF exacerbation versus CAD versus metabolic derangement versus other Narrative Course 67-year-old female with PMH of MICAELA, CHF, CAD, LifeVest, mitral regurg, nonischemic cardiomyopathy, nonsustained V. tach presents to the ED at the behest of her creosoting engineer Dr. Ramsey. Patient saw Dr. Ramsey for a routine follow-up visit today. At that time EKG showed new onset A. fib with second-degree AV block. On presentation the patient states that she is feeling well. Heart rate 130, BP 137/79 on presentation. Physical exam is reassuring. Medication review reveals the patient takes Entresto, carvedilol, aspirin daily. CXR: No acute disease per radiology read. Cardiac enzymes negative 1 EKG: Rate 136, a flutter with RVR. Borderline LAD. Reviewed by Dr. Benton I spoke with Dr. Ramsey. She recommends beta-blockade, anticoagulation. Patient was administered 5 mg metoprolol IV. Rate 95-105 on recheck. BP 115/72 Repeat EKG rate 112, a flutter with RVR. Borderline LAD. Reviewed by Dr. Benton BUN 36, creatinine 1.44. Mag 2.5: Potassium 4.7. Patient was administered 55 mg Lovenox subcutaneously and a second dose of 2.5mg metoprolol IV. BNP pending. I discussed the case with Dr. Benton. Plan for admission with cards consult. I discussed the plan with the patient, she is agreeable to admission. Cardiology consult placed. I spoke with Dr. Pimentel who agrees to accept the patient to the medicine service. Please see medicine and cardiology notes for disposition. Jesenia Clancy August 02, 2017 12:04
[2017-08-02 12:30] LABS: ALBUMIN 4.2 GM/DL (3.4-5.0); BLOOD UREA NITROGEN 36 MG/DL (7-18); CREATININE 1.44 MG/DL (0.50-1.00); GLOMERULAR FILTRATION RATE 44 ML/MIN (>89); GLUCOSE,RANDOM 84 MG/DL (74-106); TOTAL PROTEIN 8.4 GM/DL (6.4-8.2)
[2017-08-02 12:31] LABS: ALKALINE PHOSPHATASE 72 U/L (45-117); AST (GOT) 23 U/L (15-37); MAGNESIUM 2.5 MG/DL (1.5-2.5)
[2017-08-02 12:32] LABS: ALT (GPT) 23 U/L (10-53); BICARBONATE 22.3 MEQ/L (21.0-32.0); CHLORIDE 104 MEQ/L (98-107); SODIUM (NA) 138 MEQ/L (136-145); TOTAL BILIRUBIN ADULT 0.2 MG/DL (0.2-1.0); TROPONIN I LESS THAN 0.02 NG/ML (0.02-0.05)
[2017-08-02] MEDS ORDERED: ENOXAPARIN SODIUM 60 MG/0.6 ML SYRINGE SQ ONE (12:45)
[2017-08-02] MEDS ORDERED: NALOXONE HCL 0.4 MG/ML AMP IV PUSH PRN (14:45)
[2017-08-02] MEDS ORDERED: ACETAMINOPHEN 325 MG TAB PO PRN (14:45)
[2017-08-02] MEDS ORDERED: SENNOSIDES 8.6 MG TAB PO PRN (14:45)
[2017-08-02] MEDS ORDERED: BISACODYL 10 MG SUPP RECTAL PRN (14:45)
[2017-08-02] MEDS ORDERED: SODIUM CHLORIDE 0.9% FLUSH 10 ML FLUSH IV FLUSH PRN (14:45)
[2017-08-02] MEDS ORDERED: MAGNESIUM HYDROXIDE SUSP 30 ML CUP PO PRN (14:45)
[2017-08-02] MEDS ORDERED: ONDANSETRON HCL 4 MG/2 ML VIAL IVP PRN (14:45)
[2017-08-02] MEDS ORDERED: LACTULOSE SYRUP 20 GM/30 ML CUP PO PRN (14:45)
[2017-08-02] MEDS ORDERED: ONDANSETRON ODT 4 MG TAB PO PRN (15:00)
--- NOTE | 2017-08-02 17:28 | HHI.HP ---
[facility] Haydee Rivero MD Admission Diagnosis dysrhythmia, CKD Diagnoses: Chief Complaint: Sent by cardiology Dr. Ramsey for evaluation Travel History International Travel<30 Days: No Contact w/Intl Traveler <30 Da: No Traveled to Known Affected Are: No History of Present Illness Pleasant 67-year-old female with PMH of MICAELA, CHF, CAD, mitral regurg, nonischemic cardiomyopathy on life vest, nonsustained V. tach presents to the ED at the behest of her shift supervisor Dr. Ramsey. Patient saw Dr. Ramsey for a routine follow-up visit today. At that time EKG showed new onset A. fib with second-degree AV block. The patient states she is feeling well. She has chronic nonproductive cough with mild sinus congestion. She denies chest pain, palpitations, shortness of breath, diaphoresis, abdominal pain, nausea, vomiting, lower extremity edema. She takes an aspirin daily. Says she is compliant with her daily medications. She did not take her morning medications today. Patient HR is persistent in 130s on telemetry despite metoprolol IV given in the ED. Started on esmolol drip as pharmacy is out of cardizem. Patient is however asymptomatic at this time. Review of Systems Except as stated in HPI: all other systems reviewed are Neg Past Family Social History Past Medical History MICAELA, CHF, CAD, mitral regurg, nonischemic cardiomyopathy on life vest, nonsustained V. tach Past Surgical History none Reported Medications Last Impressions Chest X-Ray 08/02/17 1056 Signed Impressions: Service Date/Time: July 11:25 - CONCLUSION: No acute disease Abel Bass MD Allergies: Coded Allergies: No Known Allergies (Unverified Allergy, Unknown, 08/02/17) Family History 2 brother mom aneurysm brain dad leukemia Social History Alcohol Use: Yes (1 drink per day ) Tobacco Use: Yes (1/2 PPD) Substance Use: No Physical Exam Vital Signs Vital Signs Date Time Temp Pulse Resp B/P (MAP) Pulse Ox O2 Delivery O2 Flow Rate FiO2 08/02/17 13:42 110 16 123/69 (87) 98 08/02/17 13:00 102 16 114/76 (89) 98 Room Air 08/02/17 12:47 99 17 115/72 (86) 97 Room Air 08/02/17 11:45 116 08/02/17 11:07 97 Room Air 08/02/17 10:42 97.5 130 22 137/79 (98) 97 Physical Exam GENERAL: This is a well-nourished, well-developed patient, in no apparent distress. SKIN: No rashes, ecchymoses or lesions. Cool and dry. HEAD: Atraumatic. Normocephalic. No temporal or scalp tenderness. EYES: Pupils equal round and reactive. Extraocular motions intact. No scleral icterus. No injection or drainage. ENT: Nose without bleeding, purulent drainage or septal hematoma. Throat without erythema, tonsillar hypertrophy or exudate. Uvula midline. Airway patent. NECK: Trachea midline. No JVD or lymphadenopathy. Supple, nontender, no meningeal signs. CARDIOVASCULAR: Regular rate and rhythm without murmurs, gallops, or rubs. RESPIRATORY: Clear to auscultation. Breath sounds equal bilaterally. No wheezes , rales, or rhonchi. GASTROINTESTINAL: Abdomen soft, non-tender, nondistended. No hepato-splenomegaly , or palpable masses. No guarding. MUSCULOSKELETAL: Extremities without clubbing, cyanosis, or edema. No joint tenderness, effusion, or edema noted. No calf tenderness. Negative Homans sign bilaterally. NEUROLOGICAL: Awake and alert. Cranial nerves II through XII intact. Motor and sensory grossly within normal limits. Five out of 5 muscle strength in all muscle groups. Normal speech. Laboratory Laboratory Tests Test 08/02/17 11:15 White Blood Count 8.0 Red Blood Count 4.33 Hemoglobin 13.1 Hematocrit 38.7 Mean Corpuscular Volume 89.3 Mean Corpuscular Hemoglobin 30.3 Mean Corpuscular Hemoglobin Concent 33.9 Red Cell Distribution Width 14.7 Platelet Count 426 Mean Platelet Volume 6.4 Neutrophils (%) (Auto) 55.2 Lymphocytes (%) (Auto) 34.4 Monocytes (%) (Auto) 7.2 Eosinophils (%) (Auto) 2.2 Basophils (%) (Auto) 1.0 Neutrophils # (Auto) 4.4 Lymphocytes # (Auto) 2.7 Monocytes # (Auto) 0.6 Eosinophils # (Auto) 0.2 Basophils # (Auto) 0.1 CBC Comment DIFF FINAL Differential Comment Prothrombin Time 10.7 Prothromb Time International Ratio 1.1 Activated Partial Thromboplast Time 25.9 Blood Urea Nitrogen 36 Creatinine 1.44 Random Glucose 84 Total Protein 8.4 Albumin 4.2 Calcium Level 10.0 Magnesium Level 2.5 Alkaline Phosphatase 72 Aspartate Amino Transf (AST/SGOT) 23 Alanine Aminotransferase (ALT/SGPT) 23 Total Bilirubin 0.2 Sodium Level 138 Potassium Level 4.7 Chloride Level 104 Carbon Dioxide Level 22.3 Anion Gap 12 Estimat Glomerular Filtration Rate 44 Total Creatine Kinase 110 Creatine Kinase MB 2.1 Troponin I LESS THAN 0.02 B-Type Natriuretic Peptide 662 Result Diagram: 08/02/17 1115 08/02/17 1115 Caprini VTE Risk Assessment Caprini VTE Risk Assessment: Mod/High Risk (score >= 2) Caprini Risk Assessment Model Point Value = 1 Point Value = 2 Point Value = 3 Point Value = 5 Age 41-60 Minor surgery BMI > 25 kg/m2 Swollen legs Varicose veins or History of unexplained or recurrent spontaneous Oral contraceptives or hormone replacement Sepsis (< 1 month) Serious lung disease, including pneumonia (< 1 month) Abnormal pulmonary function Acute myocardial infarction Congestive heart failure (< 1 month) History of inflammatory bowel disease Medical patient at bed rest Age 61-74 Arthroscopic surgery Major open surgery (> 45 min) Laparoscopic surgery (> 45 min) Malignancy Confined to bed (> 72 hours) Immobilizing plaster cast Central venous access Age >= 75 History of VTE Family history of VTE Factor V Leiden Prothrombin 25801C Lupus anticoagulant Anticardiolipin antibodies Elevated serum homocysteine Heparin-induced thrombocytopenia Other congenital or acquired thrombophilia Stroke (< 1 month) Elective arthroplasty Hip, pelvis, or leg fracture Acute spinal cord injury (< 1 month) Prophylaxis Regimen Total Risk Factor Score Risk Level Prophylaxis Regimen 0-1 Low Early ambulation 2 Moderate Order ONE of the following: *Sequential Compression Device (SCD) *Heparin 5000 units SQ BID 3-4 Higher Order ONE of the following medications: *Heparin 5000 units SQ TID *Enoxaparin/Lovenox 40 mg SQ daily (WT < 150 kg, CrCl > 30 mL/min) *Enoxaparin/Lovenox 30 mg SQ daily (WT < 150 kg, CrCl > 10-29 mL/min) *Enoxaparin/Lovenox 30 mg SQ BID (WT < 150 kg, CrCl > 30 mL/min) AND/OR *Sequential Compression Device (SCD) 5 or more Highest Order ONE of the following medications: *Heparin 5000 units SQ TID (Preferred with Epidurals) *Enoxaparin/Lovenox 40 mg SQ daily (WT < 150 kg, CrCl > 30 mL/min) *Enoxaparin/Lovenox 30 mg SQ daily (WT < 150 kg, CrCl > 10-29 mL/min) *Enoxaparin/Lovenox 30 mg SQ BID (WT < 150 kg, CrCl > 30 mL/min) AND *Sequential Compression Device (SCD) Assessment and Plan Problem List: (1) Abnormal EKG ICD Code: R94.31 - Abnormal electrocardiogram [ECG] [EKG] (2) Cardiomyopathy ICD Code: I42.9 - Cardiomyopathy, unspecified (3) Mitral regurgitation ICD Code: I34.0 - Nonrheumatic mitral (valve) insufficiency (4) Acute CHF (congestive heart failure) ICD Code: I50.9 - Heart failure, unspecified (5) Dyspnea ICD Code: R06.00 - Dyspnea, unspecified Assessment and Plan 67-year-old female with PMH of MICAELA, CHF, CAD, mitral regurg, nonischemic cardiomyopathy on life vest, nonsustained V. tach presents to the ED at the behest of her shift supervisor Dr. Ramsey. Patient saw Dr. Ramsey for a routine follow-up visit today. At that time EKG showed new onset A. fib with second-degree AV block. On presentation the patient states that she is feeling well. Heart rate 130, BP 137/79 on presentation. Physical exam is reassuring. Afib with second degree AV block H/o CHF, CAD, mitral regurg, nonischemic cardiomyopathy on life vest, nonsustained V. tach Received metoprolol IV in the ED per Dr Ramsey recs Continue Entresto, carvedilol, aspirin daily. CXR reviewed no acute findings Cardiac enzymes negative 1. Trend EKG on admission reviewed and discussed with ER: Rate 136, a flutter with RVR. Borderline LAD. Consult Dr. Ramsey. She recommends beta-blockade, anticoagulation lovenox Patient was administered 5 mg metoprolol IV. Rate 95-105 on recheck. BP 115/72 Repeat EKG in ER showed HR 112, flutter with RVR. Borderline LAD. BNP pending. Check 2 D ECHO Patient however with persistent Afib with RVR HR persistent in 130s-140s Ordered cardizem bolus and cardizem drip. However I was called by pharmacy as low supply of cardizem. Ordered esmolol drip instead. Monitor on telemetry. Restart home meds as indicated DVT ppx. scd/teds/lovenox Physician Certification 2 Midnight Certification Type: Admission for Inpatient Services Order for Inpatient Services The services are ordered in accordance with Medicare regulations or non- Medicare payer requirements, as applicable. In the case of services not specified as inpatient-only, they are appropriately provided as inpatient services in accordance with the 2-midnight benchmark. Estimated LOS (days): 3 days is the estimated time the patient will need to remain in the hospital, assuming treatment plan goals are met and no additional complications. Post-Hospital Plan: Home Gerda Pimentel MD August 02, 2017 17:28
[2017-08-02] MEDS ORDERED: DILTIAZEM INJ 125 MG in SODIUM CHLORIDE 0.9% INJ 100 ML IV PRN (18:00)
[2017-08-02] MEDS ORDERED: DILTIAZEM HCL 25 MG/5 ML VIAL IV PUSH ONE (18:00)
--- NOTE | 2017-08-02 18:24 | PD ---
Physical Exam Narrative Please mid level provider note for full history and physical and dispo. Briefly , patient was sent to ER by Dr. 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 ECG in ER showed atrial flutter with RVR. I spoke to Dr. Ramsey who advised patient needed to be anticoagulated and she was ok with using metoprolol for rate control. Patient was given 5mg IV metoprolol followed by 2.5mg IV metoprolol for rate control. Her HR decreased to high 90s from the 130s. She was admitted for further evaluation and management. Data Data Last Documented VS Vital Signs Date Time Temp Pulse Resp B/P (MAP) Pulse Ox O2 Delivery O2 Flow Rate FiO2 08/02/17 13:42 110 16 123/69 (87) 98 08/02/17 13:00 Room Air 08/02/17 10:42 97.5 Orders Orders Electrocardiogram (08/02/17 10:56) Ckmb (Isoenzyme) Profile (08/02/17 10:56) Complete Blood Count With Diff (08/02/17 10:56) Comprehensive Metabolic Panel (08/02/17 10:56) Magnesium (Mg) (08/02/17 10:56) Prothrombin Time / Inr (Pt) (08/02/17 10:56) Act Partial Throm Time (Ptt) (08/02/17 10:56) Troponin I (08/02/17 10:56) Ecg Monitoring (08/02/17 10:56) Bilateral Bp Monitoring (08/02/17 10:56) Iv Access Insert/Monitor (08/02/17 10:56) Oximetry (08/02/17 10:56) Sodium Chloride 0.9% Flush (Ns Flush) (08/02/17 11:00) Chest, Pa & Lat (08/02/17 10:56) B-Type Natriuretic Peptide (08/02/17 11:03) Vascular Access Team Consult/P PRN (08/02/17 11:04) Vascular Poc Ultrasound (08/02/17 ) Metoprolol Tartrate Inj (Lopressor Inj) (08/02/17 11:30) Electrocardiogram (08/02/17 ) CKMB (08/02/17 11:15) CKMB% (08/02/17 11:15) Enoxaparin Inj (Lovenox Inj) (08/02/17 12:45) Metoprolol Tartrate Inj (Lopressor Inj) (08/02/17 13:30) Admit Order (Ed Use Only) (08/02/17 13:55) Labs Laboratory Tests Test 08/02/17 11:15 White Blood Count 8.0 TH/MM3 Red Blood Count 4.33 MIL/MM3 Hemoglobin 13.1 GM/DL Hematocrit 38.7 % Mean Corpuscular Volume 89.3 FL Mean Corpuscular Hemoglobin 30.3 PG Mean Corpuscular Hemoglobin Concent 33.9 % Red Cell Distribution Width 14.7 % Platelet Count 426 TH/MM3 Mean Platelet Volume 6.4 FL Neutrophils (%) (Auto) 55.2 % Lymphocytes (%) (Auto) 34.4 % Monocytes (%) (Auto) 7.2 % Eosinophils (%) (Auto) 2.2 % Basophils (%) (Auto) 1.0 % Neutrophils # (Auto) 4.4 TH/MM3 Lymphocytes # (Auto) 2.7 TH/MM3 Monocytes # (Auto) 0.6 TH/MM3 Eosinophils # (Auto) 0.2 TH/MM3 Basophils # (Auto) 0.1 TH/MM3 CBC Comment DIFF FINAL Differential Comment Prothrombin Time 10.7 SEC Prothromb Time International Ratio 1.1 RATIO Activated Partial Thromboplast Time 25.9 SEC Blood Urea Nitrogen 36 MG/DL Creatinine 1.44 MG/DL Random Glucose 84 MG/DL Total Protein 8.4 GM/DL Albumin 4.2 GM/DL Calcium Level 10.0 MG/DL Magnesium Level 2.5 MG/DL Alkaline Phosphatase 72 U/L Aspartate Amino Transf (AST/SGOT) 23 U/L Alanine Aminotransferase (ALT/SGPT) 23 U/L Total Bilirubin 0.2 MG/DL Sodium Level 138 MEQ/L Potassium Level 4.7 MEQ/L Chloride Level 104 MEQ/L Carbon Dioxide Level 22.3 MEQ/L Anion Gap 12 MEQ/L Estimat Glomerular Filtration Rate 44 ML/MIN Total Creatine Kinase 110 U/L Creatine Kinase MB 2.1 NG/ML Troponin I LESS THAN 0.02 NG/ML B-Type Natriuretic Peptide 662 PG/ML MDM Supervised Visit with EDNA: Yes Diagnosis Primary Impression: Atrial flutter with rapid ventricular response Admitting Information Admitting Physician Requests: Admit Condition: Stable Maile Benton MD August 02, 2017 18:24
[2017-08-02] MEDS ORDERED: ESMOLOL DRIP INJ PREMIX 250 ML IV PRN (19:15)
[2017-08-02] MEDS ORDERED: ESMOLOL HCL 100 MG/10 ML VIAL IV PUSH ONE (19:15)
--- NOTE | 2017-08-02 19:46 | EKG ---
Date Performed: 08/02/2017 Time Performed: 12:31:30 PTAGE: 67 years EKG: ATRIAL FLUTTER/TACHYCARDIA WITH RAPID VENTRICULAR RESPONSE BORDERLINE LEFT AXIS DEVIATION M INIMAL VOLTAGE CRITERIA FOR LVH, CONSIDER NORMAL VARIANT Possible left ventricular hypertrophy. Since previous tracing, no significant change noted ABNORMAL ECG PREVIOUS TRACING : 08/02/2017 12.27 DOCTOR: Marlyn Beltran Interpretating Date/Time 08/02/2017 19:44:46
[2017-08-02] MEDS: SODIUM CHLORIDE 0.9% FLUSH 10 ML FLUSH IV FLUSH SCH (19:59)
[2017-08-02] MEDS: FUROSEMIDE 40 MG TAB PO SCH (19:59)
[2017-08-02] MEDS ORDERED: CARVEDILOL 6.25 MG TAB PO SCH (21:00)
[2017-08-02] MEDS: DOCUSATE SODIUM 50 MG/SENNA 8.6 MG TAB PO SCH (21:42)
[2017-08-02] MEDS: POTASSIUM CHLORIDE 10 MEQ CONTROLLED RELEASE TAB PO SCH (21:42)
[2017-08-02] MEDS: SACUBITRIL/VALSARTAN 24 MG-26 MG TAB PO SCH (21:42)
--- NOTE | 2017-08-02 23:53 | MB ---
cc: Javier Baumann Vincent G DO DATE: 08/02/2017 REASON FOR CONSULTATION: Atrial flutter with rapid ventricular response. HISTORY OF PRESENT ILLNESS: Nasima Gilbert is a pleasant 67-year-old female who sees my partner, Dr. Ramsey, in the office who presented to [facility] Emergency Room after seeing Dr. Ramsey in the office. The patient was previously in the hospital due to shortness of breath. At that time, she was found to have a nonischemic cardiomyopathy and placed on a Life Vest as well as heart failure medications. She states that she has been feeling relatively well and was happy to see Dr. Ramsey today, as she anticipated that her heart failure medicines would be increased and hopefully that hat this would help her overall cardiomyopathy. She denies chest pain, shortness of breath, or palpitations at the time. Upon seeing Dr. Ramsey, she was sent to the hospital due to atrial fibrillation/flutter with rapid ventricular response. Upon arrival, EKG was done which showed the same. She was given 2 doses of IV metoprolol, which did slow down her heart somewhat into the low 100s. In seeing her, she is currently hemodynamically stable without chest pain, shortness of breath or palpitations. She is currently in atrial flutter with a heart rate of around 140. PAST MEDICAL HISTORY: 1. Nonischemic cardiomyopathy, new onset with an ejection fraction of 30-35%. 2. Coronary artery disease, nonobstructive. 3. Nonsustained ventricular tachycardia. PAST SURGICAL HISTORY: Cardiac catheterization (07/09/2017): Left main 10% disease. LAD 40% proximal disease. Left circumflex mid 40-60% disease and distal 20% disease. RCA mid 30% as well as distal 20-25%. PDA has a 40% lesion. ALLERGIES: NO KNOWN DRUG ALLERGIES. MEDICATIONS: 1. Clonidine 0.1 mg every 6 hours as needed for elevated blood pressure. 2. Coreg 6.25 mg b.i.d. 3. Entresto 24/ b.i.d. 4. Aspirin 325 mg daily. 5. Potassium 20 mEq b.i.d. 6. Lasix 40 mg b.i.d. FAMILY HISTORY: Two brothers as well as her mom had aneurysms in their brain. Dad had leukemia. SOCIAL HISTORY: The patient drinks 1 alcoholic drink per day. She smokes half a pack of cigarettes daily. Denies substance abuse. REVIEW OF SYSTEMS: Fourteen systems were reviewed including osteopathic. Pertinent positives and negatives above, otherwise negative. PHYSICAL EXAMINATION: VITAL SIGNS: Temperature 97.5, heart rate 140, blood pressure 127/73, respirations 15, pulse oximetry 100% on room air. GENERAL: The patient appears well, in no acute distress, alert, awake and oriented x3. HEENT: Extraocular muscles intact. Mucous membranes moist. NECK: Supple. No JVD at 45 degrees. No carotid bruits heard bilaterally. Carotid upstroke is brisk in nature. CARDIOVASCULAR: Heart is irregularly irregular but tachycardic. Positive first and second heart sounds with no noted murmurs, gallops or rubs. LUNGS: Clear to auscultation bilaterally. No wheezes, rales or rhonchi. ABDOMEN: Soft, nontender, nondistended. No organomegaly noted. EXTREMITIES: Show no clubbing, cyanosis or edema. Femoral and distal pulses intact bilaterally. NEUROLOGIC: No focal deficits. SKIN: Warm, dry and intact. OSTEOPATHIC: No kyphoscoliosis, lordosis or paraspinal tender points. LABORATORY DATA: Hemoglobin 13.1, hematocrit 38.7, platelets 426. Potassium 4.7, BUN 36, creatinine 1.44. Troponin less than 0.02. BNP 662. CARDIOLOGY STUDIES: Electrocardiogram (08/02/2017 at 12:31): Atrial flutter with rapid ventricular response, left axis deviation, LVH with secondary ST-T wave changes. IMPRESSION: 1. New onset atrial flutter with rapid ventricular response. 2. Nonischemic cardiomyopathy with an ejection fraction of 30-35%, currently with a LifeVest. 3. History of nonsustained ventricular tachycardia. RECOMMENDATIONS: 1. Ms. Gilbert presented with atrial flutter with rapid ventricular response which has responded somewhat to IV Lopressor. At this time, she was ordered Cardizem IV and as Cardizem is in a short supply it will not be supplied as a drip. I feel that we should change this to an esmolol drip. 2. We will attempt to control her heart rate as best we can with esmolol and then most likely change her carvedilol to metoprolol succinate to try to help control her heart rate, as well as help her overall cardiomyopathy for the long-term. 3. She will be left n.p.o. after midnight and reevaluated in the morning. If heart rates are not controlled, then she may need a transesophageal echo cardioversion. She has already been anticoagulated with Lovenox. 4. As she has a CHADS-VASC score of 3, she should be anticoagulated. Most likely, we will place her on Eliquis 5 mg b.i.d. 5. If she has further episodes, consideration may be for atrial flutter ablation, whether inpatient or outpatient depending on her clinical course. 6. For now, we will continue her on her Entresto for her cardiomyopathy. 7. She will continue on a LifeVest for her nonischemic cardiomyopathy as well as previous nonsustained ventricular tachycardia. Thank you for allowing me to see Nasima Gilbert. If there are any questions, please do not hesitate to call. Javier Baumann DO VGP/SA , 11:08 PM , 11:51 PM MICKY
[2017-08-03] VITALS (8 sets, daily range): BP systolic 89–124; BP diastolic 56–98; PULSE 84–128; RESP 16; TEMP 97.5–98.5; O2SAT 94–98
[2017-08-03] MEDS ORDERED: SODIUM CHLOR 0.9% 250 ML INJ 250 ML IV ONE (03:00)
[2017-08-03] MEDS ORDERED: SODIUM CHLORID 0.9% 500 ML IV PRN (04:30)
[2017-08-03] MEDS ORDERED: LACTATED RINGER'S 1000 ML IV PRN (04:30)
[2017-08-03] MEDS ORDERED: POVIDONE IODINE 5% (ANTISEPSIS KIT) 4 APPLICATIONS EACH NARE PRN (04:30)
[2017-08-03] MEDS ORDERED: DO NOT ADM ANY ANTICOAGULANT DRUGS PRN (04:30)
[2017-08-03] MEDS ORDERED: METOPROLOL TARTRATE 25 MG TAB PO PRN (04:30)
[2017-08-03] MEDS ORDERED: CHLORHEXIDINE GLUCONATE 2 % 1 PACK (2 CLOTHS) TOPICAL PRN (04:30)
[2017-08-03 04:58] LABS: BASOPHIL # 0.1 TH/MM3 (0-0.2); BASOPHIL % 0.6 % (0.0-2.0); EOSINOPHIL # 0.2 TH/MM3 (0-0.4); EOSINOPHIL % 2.6 % (0.0-4.0); HEMATOCRIT 34.2 % (35.0-46.0); HEMOGLOBIN 11.7 GM/DL (11.6-15.3); LYMPH % 29.6 % (9.0-44.0); LYMPHOCYTE # 2.5 TH/MM3 (1.0-4.8); MEAN CELL VOLUME 88.7 FL (80.0-100.0); MEAN CORPUSCULAR HEMOGLOBIN 30.3 PG (27.0-34.0); MEAN CORPUSCULAR HGB CONC 34.1 % (32.0-36.0); MEAN PLATELET VOLUME 6.5 FL (7.0-11.0); MONO % 7.1 % (0.0-8.0); MONOCYTE # 0.6 TH/MM3 (0-0.9); NEUT % 60.1 % (16.0-70.0); PLATELET COUNT 348 TH/MM3 (150-450); RED BLOOD COUNT 3.86 MIL/MM3 (4.00-5.30); RED CELL DISTRIBUTION WIDTH 14.4 % (11.6-17.2); WHITE BLOOD COUNT 8.4 TH/MM3 (4.0-11.0)
[2017-08-03 05:34] LABS: BICARBONATE 21.4 MEQ/L (21.0-32.0); CALCIUM 9.1 MG/DL (8.5-10.1); CREATININE 1.24 MG/DL (0.50-1.00)
[2017-08-03] MEDS ORDERED: APIXABAN 5 MG TABLET PO ONE (08:45)
[2017-08-03] MEDS: SACUBITRIL/VALSARTAN 24 MG-26 MG TAB PO SCH ×2 (09:00→22:11)
[2017-08-03] MEDS ORDERED: ASPIRIN 325 MG TAB PO SCH (09:00)
--- NOTE | 2017-08-03 09:04 | HHI.PR ---
Subjective Remarks Nursing reports patient still is tachycardic beyond 110. Nursing reports that the patient is scheduled for a transthoracic cardioversion today. Patient herself says she still feels short of breath. Denies any lower extremity edema. Objective Vital Signs Date Time Temp Pulse Resp B/P (MAP) Pulse Ox O2 Delivery O2 Flow Rate FiO2 08/03/17 03:00 98.1 126 16 89/56 (67) 98 08/03/17 03:00 124 08/02/17 23:00 120 08/02/17 23:00 98.8 129 12 91/70 (77) 98 08/02/17 21:15 123 08/02/17 21:15 98.4 129 16 90/75 (80) 98 08/02/17 21:04 08/02/17 19:49 127 119/78 08/02/17 17:34 110 15 127/73 (91) 96 Room Air 08/02/17 13:42 110 16 123/69 (87) 98 08/02/17 13:00 102 16 114/76 (89) 98 Room Air 08/02/17 12:47 99 17 115/72 (86) 97 Room Air 08/02/17 11:45 116 08/02/17 11:07 97 Room Air 08/02/17 10:42 97.5 130 22 137/79 (98) 97 I/O 08/02/17 08/02/17 08/02/17 08/03/17 08/03/17 08/03/17 06:59 14:59 22:59 06:59 14:59 22:59 Intake Total 240 ml Output Total 650 ml Balance -410 ml Intake Oral 240 ml Output Urine Total 650 ml # Voids 1 # Bowel Movements 0 Result Diagram: 08/03/17 0423 08/03/17 0423 Objective Remarks No lower extremity edema noted Gini labored breathing, no conversive dyspnea No cyanosis, heart sounds are tachycardic A/P Assessment and Plan 67-year-old female with PMH of MICAELA, CHF, CAD, mitral regurg, nonischemic cardiomyopathy on life vest, nonsustained V. 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 Ramsey. Patient saw Dr. Ramsey for a routine follow-up visit today. At that time EKG showed new onset A. fib with second-degree AV block. On presentation the patient states that she is feeling well. Heart rate 130, BP 137/79 on presentation. Physical exam is reassuring. Afib with second degree AV block with RVR -On esmolol drip currently and still tachycardic on exam and on my independent review of life telemetry, also on coreg BID 6.25 mg per prior order -Plan for transthoracic cardioversion today; possible plans for Eliquis per cardiology post discharge. Patient has been anticoagulated per cardiology. H/o chronic systolic CHF, CAD, mitral regurg, nonischemic cardiomyopathy on life vest, nonsustained V. tach - Continue Lovenox, Coreg, aspirin, Lasix, entresto lovenox Jean Echeverria MD August 03, 2017 09:04
[2017-08-03] MEDS: SODIUM CHLORIDE 0.9% FLUSH 10 ML FLUSH IV FLUSH SCH ×2 (09:24→22:15)
--- NOTE | 2017-08-03 13:19 | PD.CARD.PN ---
Subjective Subjective Remarks No events overnight Heart rates of 110-150 overnight with low blood pressure, in Aflutter S/p HARSHIL with CV at bedside, now in sinus rhythm/ectopic Objective Medications Current Medications Medications (Trade) Dose Ordered Sig/Mike Route Start Time Stop Time Status Last Admin (NS Flush) 2 ml UNSCH PRN IV FLUSH 08/02/17 14:45 (NS Flush) 2 ml BID IV FLUSH 08/02/17 21:00 08/03/17 09:24 (Tylenol) 650 mg Q4H PRN PO 08/02/17 14:45 (Narcan Inj) 0.4 mg UNSCH PRN IV PUSH 08/02/17 14:45 (Catie-Colace) 1 tab BID PO 08/02/17 21:00 08/02/17 21:42 (Milk Of Magnesia Liq) 30 ml Q12H PRN PO 08/02/17 14:45 (Senokot) 17.2 mg Q12H PRN PO 08/02/17 14:45 (Dulcolax Supp) 10 mg DAILY PRN RECTAL 08/02/17 14:45 (Lactulose Liq) 30 ml DAILY PRN PO 08/02/17 14:45 (Lovenox Inj) 50 mg Q12H SQ 08/03/17 00:00 08/03/17 00:00 (Aspirin) 325 mg DAILY PO 08/03/17 09:00 (Coreg) 6.25 mg Q12HR PO 08/02/17 21:00 08/02/17 21:42 (Lasix) 40 mg BID@09,18 PO 08/02/17 18:00 08/02/17 19:59 (KCl) 20 meq BID PO 08/02/17 21:00 08/02/17 21:42 (Entresto 24-26 Mg) 1 tab BID PO 08/02/17 21:00 08/02/17 21:42 (Zofran Odt) 4 mg Q6H PRN PO 08/02/17 15:00 Lactated Ringer's 1,000 ml @ 30 mls/hr Q24H PRN IV 08/03/17 04:30 08/06/17 04:29 Sodium Chloride 500 ml @ 30 mls/hr [id number] PRN IV 08/03/17 04:30 08/06/17 04:29 (Lopressor) 25 mg BOARD LAYER PRN PO 08/03/17 04:30 08/06/17 04:29 (Betadine 5% Antisepsis Kit) 1 applic BOARD LAYER PRN EACH NARE 08/03/17 04:30 08/06/17 04:29 (Chlorhexidine 2% Cloth) 3 pack BOARD LAYER PRN TOPICAL 08/03/17 04:30 08/06/17 04:29 Vital Signs / I&O Vital Signs Date Time Temp Pulse Resp B/P (MAP) Pulse Ox O2 Delivery O2 Flow Rate FiO2 08/03/17 12:38 97 Nasal Cannula 4.00 08/03/17 12:15 97 6.00 08/03/17 08:00 125 08/03/17 08:00 97.8 128 16 93/70 (78) 94 08/03/17 03:00 98.1 126 16 89/56 (67) 98 08/03/17 03:00 124 08/02/17 23:00 120 08/02/17 23:00 98.8 129 12 91/70 (77) 98 08/02/17 21:15 123 08/02/17 21:15 98.4 129 16 90/75 (80) 98 08/02/17 21:04 08/02/17 19:49 127 119/78 08/02/17 17:34 110 15 127/73 (91) 96 Room Air 08/02/17 13:42 110 16 123/69 (87) 98 I/O 08/02/17 08/02/17 08/02/17 08/03/17 08/03/17 08/03/17 07:00 15:00 23:00 07:00 15:00 23:00 Intake Total 240 ml 192 ml Output Total 650 ml Balance -410 ml 192 ml Intake Oral 240 ml IV Total 192 ml Output Urine Total 650 ml # Voids 1 # Bowel Movements 0 Physical Exam GENERAL: NAD, AAOx3 SKIN: Warm and dry. HEAD: Atraumatic. Normocephalic. EYES: Pupils equal and round. No scleral icterus. No injection or drainage. ENT: No nasal bleeding or discharge. Mucous membranes pink and moist. NECK: Trachea midline. No JVD. CARDIOVASCULAR: Regular rate and rhythm. RESPIRATORY: No accessory muscle use. Clear to auscultation. Breath sounds equal bilaterally. GASTROINTESTINAL: Abdomen soft, non-tender, nondistended. Hepatic and splenic margins not palpable. MUSCULOSKELETAL: Extremities without clubbing, cyanosis, or edema. No obvious deformities. NEUROLOGICAL: Awake and alert. No obvious cranial nerve deficits. Motor grossly within normal limits. Five out of 5 muscle strength in the arms and legs. Normal speech. PSYCHIATRIC: Appropriate mood and affect; insight and judgment normal. Laboratory Laboratory Tests Test 08/03/17 04:23 White Blood Count 8.4 TH/MM3 Red Blood Count 3.86 MIL/MM3 Hemoglobin 11.7 GM/DL Hematocrit 34.2 % Mean Corpuscular Volume 88.7 FL Mean Corpuscular Hemoglobin 30.3 PG Mean Corpuscular Hemoglobin Concent 34.1 % Red Cell Distribution Width 14.4 % Platelet Count 348 TH/MM3 Mean Platelet Volume 6.5 FL Neutrophils (%) (Auto) 60.1 % Lymphocytes (%) (Auto) 29.6 % Monocytes (%) (Auto) 7.1 % Eosinophils (%) (Auto) 2.6 % Basophils (%) (Auto) 0.6 % Neutrophils # (Auto) 5.0 TH/MM3 Lymphocytes # (Auto) 2.5 TH/MM3 Monocytes # (Auto) 0.6 TH/MM3 Eosinophils # (Auto) 0.2 TH/MM3 Basophils # (Auto) 0.1 TH/MM3 CBC Comment DIFF FINAL Differential Comment Blood Urea Nitrogen 30 MG/DL Creatinine 1.24 MG/DL Random Glucose 103 MG/DL Calcium Level 9.1 MG/DL Sodium Level 141 MEQ/L Potassium Level 4.4 MEQ/L Chloride Level 108 MEQ/L Carbon Dioxide Level 21.4 MEQ/L Anion Gap 12 MEQ/L Estimat Glomerular Filtration Rate 52 ML/MIN Assessment and Plan Problem List: (1) Atrial flutter with rapid ventricular response ICD Codes: I48.92 - Unspecified atrial flutter Status: Acute (2) Acute CHF (congestive heart failure) ICD Codes: I50.9 - Heart failure, unspecified (3) Abnormal EKG ICD Codes: R94.31 - Abnormal electrocardiogram [ECG] [EKG] (4) Cardiomyopathy ICD Codes: I42.9 - Cardiomyopathy, unspecified (5) Mitral regurgitation ICD Codes: I34.0 - Nonrheumatic mitral (valve) insufficiency (6) Dyspnea ICD Codes: R06.00 - Dyspnea, unspecified Assessment and Plan 1) New onset Aflutter s/p HARSHIL/CV, in sinus rhythm CHADSVASC=3 Con't Eliquis 5mg BID Change Coreg to Toprol XL May need consideration of Aflutter ablation in the future if further episodes 2) NICM, EF 20% Con't Lifevest Follow up with Dr. Ramsey for titration of medications and repeat echo in a few month Con't Entresto 3) Watch overnight and if stable tomorrow plan discharge home for follow up with Javier Martinez DO August 03, 2017 13:19
[2017-08-03] MEDS: POTASSIUM CHLORIDE 10 MEQ CONTROLLED RELEASE TAB PO SCH ×2 (15:10→22:10)
[2017-08-03] MEDS: DOCUSATE SODIUM 50 MG/SENNA 8.6 MG TAB PO SCH ×2 (15:10→21:00)
[2017-08-03] MEDS: METOPROLOL SUCCINATE 25 MG EXTENDED RELEASE TAB PO SCH (15:11)
[2017-08-03] MEDS: ENOXAPARIN SODIUM 60 MG/0.6 ML SYRINGE SQ SCH ×3 (15:11→23:19)
[2017-08-03] MEDS: FUROSEMIDE 40 MG TAB PO SCH ×2 (15:12→22:09)
--- NOTE | 2017-08-03 18:35 | MR ---
cc: Javier Baumann Vincent G DO DATE: 08/03/2017 PROCEDURE: Cardioversion for atrial flutter at 100 joules. PREPROCEDURE DIAGNOSIS: Atrial flutter with rapid ventricular response. POSTPROCEDURE DIAGNOSIS: Normal sinus rhythm. PROCEDURAL SUMMARY: Nasima Gilbert is a pleasant 67-year-old female who sees my partner, Dr. Ramsey in the office and presented to the hospital with atrial flutter with rapid ventricular response after being seen in the office. Overnight, she continued to have elevated heart rates of 110 to 140 beats per minute. It was felt at this time that she should be cardioverted due to its incessant nature. Please see separate summary on her transesophageal echocardiogram. HARSHIL showed no thrombus within the left atrial appendage or left ventricle. The patient had pads placed on her front and back. She was cardioverted to normal sinus rhythm with 100 joules. The patient tolerated the procedure well. IMPRESSION: 1. Atrial flutter with rapid ventricular response, status post cardioversion to normal sinus rhythm. 2. Nonischemic cardiomyopathy with an ejection fraction of 20%. RECOMMENDATIONS: 1. Ms. Gilbert underwent cardioversion and is now in normal sinus rhythm. 2. To help to try to control her heart rate, she will be changed from carvedilol to metoprolol succinate. 3. She has been anticoagulated with Lovenox, but this will be changed to Eliquis 5 mg b.i.d. 4. She should be watched overnight and, if stable in the morning, discharged home for followup with Dr. Ramsey. Thank you for allowing me to see Nasima Gilbert. If there are any questions, please do not hesitate to call. Javier Baumann DO VGP/SA , 06:10 PM , 06:35 PM
[2017-08-03] MEDS: APIXABAN 5 MG TABLET PO SCH (22:10)
[2017-08-04 03:00] VITALS: BP 116/85; PULSE 81; PULSE 84; RESP 18; TEMP 97.9; O2SAT 96
--- NOTE | 2017-08-04 03:46 | ECHRPT ---
Indication: Persistent atrial fibrillation CONCLUSIONS Mildly dilated left ventricle. The left ventricular systolic function is severely reduced with an estimated ejection fraction in th e range of 25-30%. There is global left ventricular dysfunction. Normal left atrial appendage size with no evidence of thrombus formation. A patent foramen ovale is present with a [id number] shunt demonstrated by color flow Doppler interrogation. Right to left atrial level shunt is observed with agitated saline contrast administration. Moderate mitral valve regurgitation. The mitral valve regurgitation jet is directed centrally due to poor leaflet coaptation. There is mild to moderate tricuspid valve regurgitation. BP: / HR: Rhythm: Atrial flutter Technical Quality:Good Medications Complications Proc. Components Anesthesia at the bedside for moderate sedation. FINDINGS LEFT VENTRICLE Mildly dilated left ventricle. The left ventricular systolic function is severely reduced with an estimated ejection fraction in th e range of 25-30%. There is global left ventricular dysfunction. RIGHT VENTRICLE Grossly normal LEFT ATRIUM The left atrial size is mildly dilated. RIGHT ATRIUM The right atrial size is mildly dilated. ATRIAL APPENDAGES Normal left atrial appendage size with no evidence of thrombus formation. ATRIAL SEPTUM Normal atrial septal thickness. A patent foramen ovale is present with a [id number] shunt demonstrated by color flow Doppler interrogation. Right to left atrial level shunt is observed with agitated saline contrast administration. AORTA Descending aorta with no dissection MITRAL VALVE Structurally normal mitral valve. Moderate mitral valve regurgitation. The mitral valve regurgitation jet is directed centrally due to poor leaflet coaptation. No mitral valve stenosis. AORTIC VALVE Trileaflet aortic valve. No aortic valve stenosis or regurgitation. TRICUSPID VALVE Structurally normal tricuspid valve. There is mild to moderate tricuspid valve regurgitation. No tricuspid valve stenosis. VESSELS The pulmonary valve is not well visualized. No pulmonary valve regurgitation. Javier Baumann DO (Electronically Signed) Final Date:04 Aug 2017 03:45
[2017-08-04 08:00] VITALS: BP 127/92; PULSE 69; PULSE 80; RESP 16; TEMP 97.8; O2SAT 97
--- NOTE | 2017-08-04 08:09 | HHI.PR ---
Subjective Remarks Pt feels well. Denies any palpitations, CP/SOB/N/V Has been watching the monitor and HR has been in the 80's. Discussed w RN and not concerns or acute events overnight, s/p cardioversion Pt wishes to go home today. Will be making f/u appt w Dr. Ramsey on sunday. Objective Vitals Vital Signs Date Time Temp Pulse Resp B/P (MAP) Pulse Ox O2 Delivery O2 Flow Rate FiO2 08/04/17 03:00 97.9 81 18 116/85 (95) 96 08/04/17 03:00 84 08/03/17 23:00 88 08/03/17 23:00 98.5 86 16 124/98 (107) 97 08/03/17 19:00 97.9 86 16 122/92 (102) 96 08/03/17 19:00 96 Nasal Cannula 2.00 08/03/17 19:00 86 08/03/17 15:00 97.5 84 16 109/64 (79) 94 08/03/17 15:00 125 08/03/17 12:38 97 Nasal Cannula 4.00 08/03/17 12:15 97 6.00 08/03/17 11:00 125 08/03/17 11:00 97.8 128 16 94/62 (73) 94 I/O 08/03/17 08/03/17 08/03/17 08/04/17 08/04/17 08/04/17 07:00 15:00 23:00 07:00 15:00 23:00 Intake Total 240 ml 192 ml 480 ml 320 ml Output Total 650 ml Balance -410 ml 192 ml 480 ml 320 ml Intake Oral 240 ml 480 ml 320 ml IV Total 192 ml Output Urine Total 650 ml # Voids 4 # Bowel Movements 0 1 Result Diagram: 08/03/17 0423 08/03/17 0423 Imaging Last Impressions Chest X-Ray 08/02/17 1056 Signed Impressions: Service Date/Time: July 11:25 - CONCLUSION: No acute disease Abel Bass MD Objective Remarks No lower extremity edema noted non labored breathing, lungs are clear. Lifevest in place HR rrr, on TELE HR 80's moves ext w no difficulty while sitting down A/P Problem List: (1) Abnormal EKG ICD Code: R94.31 - Abnormal electrocardiogram [ECG] [EKG] (2) Cardiomyopathy ICD Code: I42.9 - Cardiomyopathy, unspecified (3) Mitral regurgitation ICD Code: I34.0 - Nonrheumatic mitral (valve) insufficiency (4) Acute CHF (congestive heart failure) ICD Code: I50.9 - Heart failure, unspecified (5) Dyspnea ICD Code: R06.00 - Dyspnea, unspecified Assessment and Plan Assessment and Plan 67-year-old female with PMH of MICAELA, CHF, CAD, mitral regurg, nonischemic cardiomyopathy on life vest, nonsustained V. tach presents to the ED at the behest of her roofing superintendent Dr. Ramsey. Patient saw Dr. Ramsey for a routine follow-up visit today. At that time EKG showed new onset A. flutter with second-degree AV block. found to be on atrial flutter w RVR -s/p esmolol drip. s/p transthoracic cardioversion, now on toprol xl and eliquis. - Pt is feeling well and will be making appt w her roofing superintendent on sunday for f/ u. Per cards note, if pt ok stable may be discharged. Will reach out to cards for final recs H/o chronic systolic CHF, CAD, mitral regurg, nonischemic cardiomyopathy on life vest, nonsustained V. tach - Continue toprol sl, aspirin, Lasix, entresto Discharge Planning Anticipate d/c later today f/u w cards and PCP as an outpatient Script in chart heart healthy diet /fluid restriction 1500ml/day condition stable activity as tolerated Ruchi Gutierrez MD August 04, 2017 08:09
[2017-08-04] MEDS ORDERED: APIX5TAB PO (08:12)
[2017-08-04] MEDS ORDERED: METO1TAB42 PO (08:12)
--- NOTE | 2017-08-04 08:53 | EKG ---
Date Performed: 08/02/2017 Time Performed: 10:54:29 PTAGE: 67 years EKG: ATRIAL FLUTTER/TACHYCARDIA WITH RAPID VENTRICULAR RESPONSE BORDERLINE LEFT AXIS DEVIATION N ONSPECIFIC ST & T-WAVE ABNORMALITY ABNORMAL ECG PREVIOUS TRACING : 07/04/2017 14.10 DOCTOR: Marlyn Beltran Interpretating Date/Time 08/04/2017 08:48:46
[2017-08-04] MEDS: DOCUSATE SODIUM 50 MG/SENNA 8.6 MG TAB PO SCH (09:00)
[2017-08-04] MEDS: SODIUM CHLORIDE 0.9% FLUSH 10 ML FLUSH IV FLUSH SCH (09:30)
[2017-08-04] MEDS: METOPROLOL SUCCINATE 25 MG EXTENDED RELEASE TAB PO SCH (09:33)
[2017-08-04] MEDS: APIXABAN 5 MG TABLET PO SCH (09:33)
[2017-08-04] MEDS: FUROSEMIDE 40 MG TAB PO SCH (09:33)
[2017-08-04] MEDS: SACUBITRIL/VALSARTAN 24 MG-26 MG TAB PO SCH (09:35)
[2017-08-04] MEDS: POTASSIUM CHLORIDE 10 MEQ CONTROLLED RELEASE TAB PO SCH (09:35)
[2017-08-04 10:11] VITALS: O2SAT 97
[2017-08-04 11:00] VITALS: BP 127/90; PULSE 79; RESP 16; TEMP 97.8; O2SAT 97
--- NOTE | 2017-08-04 11:59 | PD.CARD.PN ---
Subjective Subjective Remarks No complaints Objective Medications Current Medications Medications (Trade) Dose Ordered Sig/Mike Route Start Time Stop Time Status Last Admin (NS Flush) 2 ml UNSCH PRN IV FLUSH 08/02/17 14:45 (NS Flush) 2 ml BID IV FLUSH 08/02/17 21:00 08/04/17 09:30 (Tylenol) 650 mg Q4H PRN PO 08/02/17 14:45 (Narcan Inj) 0.4 mg UNSCH PRN IV PUSH 08/02/17 14:45 (Catie-Colace) 1 tab BID PO 08/02/17 21:00 08/03/17 15:10 (Milk Of Magnesia Liq) 30 ml Q12H PRN PO 08/02/17 14:45 (Senokot) 17.2 mg Q12H PRN PO 08/02/17 14:45 (Dulcolax Supp) 10 mg DAILY PRN RECTAL 08/02/17 14:45 (Lactulose Liq) 30 ml DAILY PRN PO 08/02/17 14:45 (Lasix) 40 mg BID@,18 PO 08/02/17 18:00 08/04/17 09:33 (KCl) 20 meq BID PO 08/02/17 21:00 08/04/17 09:35 (Entresto 24-26 Mg) 1 tab BID PO 08/02/17 21:00 08/04/17 09:35 (Zofran Odt) 4 mg Q6H PRN PO 08/02/17 15:00 Lactated Ringer's 1,000 ml @ 30 mls/hr Q24H PRN IV 08/03/17 04:30 08/06/17 04:29 Sodium Chloride 500 ml @ 30 mls/hr [id number] PRN IV 08/03/17 04:30 08/06/17 04:29 (Lopressor) 25 mg PRINCIPAL CLOUD ARCHITECT PRN PO 08/03/17 04:30 08/06/17 04:29 (Betadine 5% Antisepsis Kit) 1 applic PRINCIPAL CLOUD ARCHITECT PRN EACH NARE 08/03/17 04:30 08/06/17 04:29 (Chlorhexidine 2% Cloth) 3 pack PRINCIPAL CLOUD ARCHITECT PRN TOPICAL 08/03/17 04:30 08/06/17 04:29 (Eliquis) 5 mg BID PO 08/03/17 21:00 08/04/17 09:33 (Toprol Xl) 25 mg DAILY PO 08/03/17 13:30 08/04/17 09:33 Vital Signs / I&O Vital Signs Date Time Temp Pulse Resp B/P (MAP) Pulse Ox O2 Delivery O2 Flow Rate FiO2 08/04/17 10:11 97 08/04/17 08:00 69 08/04/17 08:00 97.8 80 16 127/92 (104) 97 08/04/17 03:00 97.9 81 18 116/85 (95) 96 08/04/17 03:00 84 08/03/17 23:00 88 08/03/17 23:00 98.5 86 16 124/98 (107) 97 08/03/17 19:00 97.9 86 16 122/92 (102) 96 08/03/17 19:00 96 Nasal Cannula 2.00 08/03/17 19:00 86 08/03/17 15:00 97.5 84 16 109/64 (79) 94 08/03/17 15:00 125 08/03/17 12:38 97 Nasal Cannula 4.00 08/03/17 12:15 97 6.00 I/O 08/03/17 08/03/17 08/03/17 08/04/17 08/04/17 08/04/17 07:00 15:00 23:00 07:00 15:00 23:00 Intake Total 240 ml 192 ml 480 ml 320 ml Output Total 650 ml Balance -410 ml 192 ml 480 ml 320 ml Intake Oral 240 ml 480 ml 320 ml IV Total 192 ml Output Urine Total 650 ml # Voids 4 # Bowel Movements 0 1 Physical Exam GENERAL: Well developed, well nourished. No acute distress. HEENT: Jugular venous pressure is normal. CHEST: Lungs clear to auscultation bilaterally. Unlabored respiratory effort. CARDIAC: Regular rate and rhythm ABDOMEN: Soft EXTREMITIES: No clubbing, cyanosis, or edema. TELE: sinus rhythm Assessment and Plan Problem List: (1) Atrial flutter with rapid ventricular response ICD Codes: I48.92 - Unspecified atrial flutter Status: Acute Plan: Back in sinus (2) Acute CHF (congestive heart failure) ICD Codes: I50.9 - Heart failure, unspecified (3) Abnormal EKG ICD Codes: R94.31 - Abnormal electrocardiogram [ECG] [EKG] (4) Cardiomyopathy ICD Codes: I42.9 - Cardiomyopathy, unspecified (5) Mitral regurgitation ICD Codes: I34.0 - Nonrheumatic mitral (valve) insufficiency (6) Dyspnea ICD Codes: R06.00 - Dyspnea, unspecified Assessment and Plan OK to DC home. [facility]. Oneil Fry MD August 04, 2017 11:59
== END 2017-08-04 12:55 | disposition home or self-care (01) | DRG 308 ==
LOC: NEPC 10:37 → NEDA 13:57 → NEDH 19:07 → HCPC 21:12 → HCVI 08-03 06:32
PROVIDERS: ADMIT Hospitalist; ATTEND Hospitalist
PROC: 5A2204Z Restoration of Cardiac Rhythm, Single (ICD-10-PCS; principal; 2017-08-03)
PROC: B246ZZ4 Ultrasonography of Right and Left Heart, Transesophageal (ICD-10-PCS; 2017-08-03)
DX: I48.92 Unspecified atrial flutter (principal); I50.23 Acute on chronic systolic (congestive) heart failure; I13.0 Hypertensive heart and chronic kidney disease with heart failure and stage 1 through stage 4 chronic kidney disease, or unspecified chronic kidney disease; I48.1 Persistent atrial fibrillation; I42.9 Cardiomyopathy, unspecified; I44.1 Atrioventricular block, second degree; I34.0 Nonrheumatic mitral (valve) insufficiency; I25.10 Atherosclerotic heart disease of native coronary artery without angina pectoris; N18.9 Chronic kidney disease, unspecified; F17.210 Nicotine dependence, cigarettes, uncomplicated
CPT/HCPCS: 71046; 80048; 80053; 82550; 82552; 83735; 83880; 84484; 85025; 85610; 85730; 93005; 93312; 93320; 93325; 96372; 96374; 96375; J1650; J7050

== ENCOUNTER 2017-09-11 11:53 | Day surgery (SDC) | payer MEDICARE ==
[~2017-09-11] VITALS: Ht 167.6 cm; Wt 68.7 kg
[~2017-09-11 11:53] MED LIST changes: +APIX5TAB PO; -CARV6.25 PO; +METO1TAB42 PO
[2017-09-11] MEDS ORDERED: ePHEDrine/NS 25 MG/5 ML SYRINGE IV ONE (12:00)
[2017-09-11] MEDS ORDERED: LIDOCAINE HCL 1% PF 5 ML SYRINGE OTHER ONE (12:00)
[2017-09-11] MEDS ORDERED: PROPOFOL 200 MG/20 ML AMP IV ONE (12:00)
[2017-09-11] MEDS ORDERED: ONDANSETRON HCL 4 MG/2 ML VIAL IV ONE (12:00)
[2017-09-11] MEDS ORDERED: PHENYLEPH/NS 1000 MCG/10 ML SYR IV ONE (12:00)
[2017-09-11] MEDS ORDERED: SUCCINYLCHOLINE CHLORIDE 100 MG/5 ML SYRINGE IV PUSH ONE (12:00)
[2017-09-11] MEDS ORDERED: SODIUM CHLORID 0.9% 500 ML IV PRN (12:30)
[2017-09-11] MEDS ORDERED: LACTATED RINGER'S 1000 ML IV PRN (12:30)
[2017-09-11] MEDS ORDERED: METOPROLOL TARTRATE 25 MG TAB PO PRN (12:30)
[2017-09-11] MEDS ORDERED: CHLORHEXIDINE GLUCONATE 2 % 1 PACK (2 CLOTHS) TOPICAL PRN (12:30)
[2017-09-11] MEDS ORDERED: POVIDONE IODINE 5% (ANTISEPSIS KIT) 4 APPLICATIONS EACH NARE PRN (12:30)
[2017-09-11] MEDS ORDERED: SODIUM CHLORID 0.9% 500 ML INJ 500 ML IV SCH (12:30)
[2017-09-11] MEDS ORDERED: LORazepam 1 MG TAB SL SCH (12:30)
[2017-09-11 12:32] VITALS: BP 169/91; PULSE 59; RESP 18; TEMP 97.9; O2SAT 99
[2017-09-11 12:34] LABS: AUTOMATED NEUTROPHIL # 4.7 TH/MM3 (1.8-7.7); BASOPHIL # 0.1 TH/MM3 (0-0.2); EOSINOPHIL # 0.2 TH/MM3 (0-0.4); EOSINOPHIL % 2.5 % (0.0-4.0); HEMATOCRIT 35.4 % (35.0-46.0); HEMOGLOBIN 12.1 GM/DL (11.6-15.3); LYMPH % 30.4 % (9.0-44.0); LYMPHOCYTE # 2.5 TH/MM3 (1.0-4.8); MEAN CELL VOLUME 87.6 FL (80.0-100.0); MEAN CORPUSCULAR HEMOGLOBIN 29.9 PG (27.0-34.0); MEAN CORPUSCULAR HGB CONC 34.1 % (32.0-36.0); MEAN PLATELET VOLUME 6.6 FL (7.0-11.0); MONO % 8.1 % (0.0-8.0); MONOCYTE # 0.7 TH/MM3 (0-0.9); PLATELET COUNT 301 TH/MM3 (150-450); RED BLOOD COUNT 4.04 MIL/MM3 (4.00-5.30); RED CELL DISTRIBUTION WIDTH 14.4 % (11.6-17.2); WHITE BLOOD COUNT 8.2 TH/MM3 (4.0-11.0)
[2017-09-11 12:43] LABS: PROTHROMBIN TIME - PATIENT 10.5 SEC (9.8-11.6)
[2017-09-11 13:13] LABS: BICARBONATE 25.2 MEQ/L (21.0-32.0); CALCIUM 9.4 MG/DL (8.5-10.1); CREATININE 1.18 MG/DL (0.50-1.00)
[2017-09-11] MEDS ORDERED: HEPARIN-NS/PF INJ 1,000 ML ONE (14:43)
[2017-09-11] MEDS ORDERED: ISOPROTERENOL INJ PREMIX 50 ML IV ONE (14:47)
--- NOTE | 2017-09-11 15:40 | CATHPROC ---
Estimize HIS Report Study Information Study Number Admission Scheduled Start Study Start [id number] Sep 11 2017 11:53AM 09/11/2017 Sep 11 2017 2:10PM [facility] Electrophysiology Study Admit Source Facility Department Other [facility] - Physical Sciences Instructor Physician and Clinical Staff Initial Marlyn Rivas Map Plotter Freya Padron,RT(R) TECH2 Map Plotter Hardy Hunter,RT(R) Other Anesthesia, BASE LOADER Recorder Patti Huynh,RN Recorder Danny RN, Mere Souza,CHLORINE CELL TENDER TECH2 Procedures Performed Procedure Location (Site) Vessel Name Ablation Procedure RF Ablation Isthmus Other Equipment Time Chlorine Cell Tender Description Size Mfg Part Number Used/Scraped BIOSENSE MITTAL CATHETER, CELSIUS DS, 8MM, F [id number] 15:11 FR 7 Used INC. TYPE QUAD *[id number] 14:48 [employer] BLANKET,WARM AIR CCL * Used *[id number] 14:48 [employer] PACK, CCL CUSTOM * Used *[id number] 14:48 [employer] PACER JENKINS, LIMB * 2530 *[id number] Used [id number] 14:49 [employer] CATHETER, JSN, QUAD FR 5 Used *[id number] 14:49 [employer] CATHETER, JSN, QUAD FR 5 Used *[id number] 14:49 [employer] CATHETER, JSN, QUAD FR 5 Used *[id number] 14:49 [employer] CATHETER, JSN, QUAD FR 5 Used *[id number] 14:48 [employer] ELECTRODE KIT, SAL X SURFACE * Used *[id number] [id number] 14:49 [employer] SHEATH, EPS, FR5 FAST CATH FR 5 Used *[id number] 14:49 [employer] SHEATH, EPS, FR5 FAST CATH FR 5 Used *[id number] 14:49 [employer] SHEATH, EPS, FR5 FAST CATH FR 5 Used *[id number] 14:49 [employer] SHEATH, EPS, FR5 FAST CATH FR 5 Used *[id number] [id number] 14:49 [employer] SHEATH, EPS, FR6 FAST CATH FR 6 Used *[id number] 14:49 [employer] SHEATH, EPS, FR8 FAST CATH FR 8 Used *[id number] [facility] PAD, ELECTROSURGICAL 14:48 * [id number] *[id number] Used SURGICAL GROUNDING (BLUE) History: Allergies Allergy Reaction No Known Allergies Labs Hgb (g/dl) Hct (%) WBC (l/cumm) Platelets (thousands) 11.60-17.00 35.00-51.00 4.00-11.00 150.00-450.00 12.1 35.4 8.2 301 Glucose (mg/dl) BUN (mg/dl) Creatinine (mg/dl) BUN:Creatinine (1:x) 74.00-106.00 7.00-18.00 0.50-1.30 10.00-20.00 80 20 1.2 16.7 Na (meq/l) K (meq/l) 136.00-145.00 3.50-5.10 141 4.3 INR (PTT:PT) 0.90-1.10 1 CPK-MB (ng/ML) 0.50-3.60 Not Drawn Medication Medication Total Dose (Bolus/Oral) Medication Total Dosage/Unit 1% XYLOCAINE 40 mL Medications (Bolus/Oral) Medication Time Given Dosage/Unit Administered By Reason 1% XYLOCAINE 09/11/2017 2:56:11 PM 20 mL Marlyn Beltran 20 mL 1% XYLOCAINE given in lab by Marlyn Beltran in Left Groin via Subcutaneous. Ordered by Jaxson Beltran. 1% XYLOCAINE 09/11/2017 2:57:52 PM 20 mL Marlyn Beltran 20 mL 1% XYLOCAINE given in lab by Marlyn Beltran in Right Groin via Subcutaneous. Ordered by Zev Beltran. Medication (Drip) Medication Time Given Dosage/Unit Concentration/Unit Diluent (ml) Solution ISUPREL 09/11/2017 3:19:28 PM 5 mcg/min 1 mg 250 NaCl .9 5 mcg/min ISUPREL given in lab by Anesthesia, BASE LOADER via Peripheral IV. Pump/Drip Flow = 75 ml/hr using NaCl .9 with a concentration of 1 mg in 250 ml. Ordered by Marlyn Beltran. ISUPREL 09/11/2017 3:27:06 PM 0 mcg/min 1 mg 250 NaCl .9 0 mcg/min ISUPREL given in lab by Anesthesia, BASE LOADER via Peripheral IV. Pump/Drip Flow = 0 ml/hr using NaCl .9 with a concentration of 1 mg in 250 ml. Ordered by Marlyn Beltran. Discontinued at 09/11/2017 15:27. Initial Case Assessment Cardiovascular HR Rhythm NIBP Chest Pain 70 NSR 167/100 0 Edema Present Skin color Skin None Normal Warm Circulatory - Right Pulses Dorsalis Pedis Posterior Tibial Femoral 1 1 1 Scale (0,1,2,3,4,d) Circulatory - Left Pulses Dorsalis Pedis Posterior Tibial Femoral 1 1 1 Scale (0,1,2,3,4,d) Circulatory - Lower Extremities Color Lower Right Color Lower Left Normal Normal Neurological State Oriented to time-place- Alert Moves all extremities person Respiration - General Respiration Rate SpO2 (%) (B/min) 18 99 Chronological Log Time Study Chronological Log 14:28:33 MD arrived. 14:28:37 Patient arrived via Bed. 14:28:38 Patient Name, D.O.B, / Armband Verified By R.N. 14:28:39 Consent signed by the physician and the patient and verified by the Physical Sciences Instructor staff. 14:28:42 Pre-op and post- op instructions given; patient acknowledges understanding of instructions. 14:28:42 Verbal Stimulation=2 Physical Stimulation=2 Airway=2 Respiration=2 TOTAL=8. (0=absent, 1=li mited, 2=present) Anesthesia at bedside. STEVENSON Zuluaga Assumes care of patient. See anesth sheets for all vitals and medications given 14:28:52 during the case 14:29:52 Patient has been NPO for More than 6Hrs. 14:29:53 Skin Breakdown-none per PT 14:29:59 Patient Warmer Placed on the Table. 14:29:59 Disposable Defibrillator Pads Placed On Patient. 14:30:00 Annika Prominences Protected 14:30:32 History and physical on the chart or being dictated. 14:30:59 A # 20 IV was noted in the Antecubital (left). Grade = 0 0.9NS infusing at KVO 14:31:14 A # 20 IV was noted in the Antecubital (right). Grade = 0 0.9NS infusing at KVO 14:33:24 Pt lifevest removed and battery removed from lifevest device for procedure. Will be placed back on pt post procedure Assessment: Initial Case, HR=70 BPM, Rhythm=NSR, MKTR=457/100 mmhg, Chest Pain=0, Edema=None, Color=Normal, Skin = Warm Right Pulses: Arjun Ped=1, Post Tib=1, Femoral=1 Left Pulses: Arjun Ped=1, Post Tib=1, Femoral=1 14:41:28 Lower Right Extremities: Color=Normal Lower Left Extremities: Color=Normal Neurological: State=Alert, Ox3, RIVERA Respiration: Resp=18 B/min, SpO2=99 % 14:42:15 Table restraints applied according to hospital policy 14:48:22 Bilateral groins prepped with 2% chlorhexidine, and draped after a 3 minute waiting time. Time Out. Correct patient, procedure, procedure equipment, site and side verified with physicia n present. Time 14:55:56 concurred by MD, individual staff and BASE LOADER. Time Out #2 - Consents verified, patient in correct position, all results are labled and displa yed, safety precautions 14:55:57 taken, antibiotics administered. Time out concurred by MD, individual staff and BASE LOADER in procedu re 14:55:57 Case Start 14:56:11 20 mL 1% XYLOCAINE given in lab by Marlyn Beltran in Left Groin via Subcutaneous. Ordered by Marlyn Beltran. 14:56:22 Vascular access was obtained in the Fem Vein (left). 14:56:23 Vascular access was obtained in the Fem Vein (left). 14:56:26 Vascular access was obtained in the Fem Vein (left). 14:56:37 A SHEATH, EPS, FR5 FAST CATH FR 5 was advanced into the Fem Vein (left) using the Modified Seldinger technique. 14:56:47 A SHEATH, EPS, FR5 FAST CATH FR 5 was advanced into the Fem Vein (left) using the Modified Seldinger technique. 14:56:50 A SHEATH, EPS, FR5 FAST CATH FR 5 was advanced into the Fem Vein (left) using the Modified Seldinger technique. 14:57:52 20 mL 1% XYLOCAINE given in lab by Marlyn Beltran in Right Groin via Subcutaneous. Ordered b Marlyn Garduno. 14:58:01 Vascular access was obtained in the Fem Vein (right). 14:58:03 Vascular access was obtained in the Fem Vein (right). 14:58:10 A SHEATH, EPS, FR6 FAST CATH FR 6 was advanced into the Fem Vein (right) using the Modified Seldinger technique. 14:58:20 A SHEATH, EPS, FR8 FAST CATH FR 8 was advanced into the Fem Vein (right) using the Modified Seldinger technique. A CATHETER, JSN, QUAD FR 5 was advanced vis Fem Vein (right) and placed in the CS. Placement wa s visually 15:01:21 confirmed under fluoroscopy. A CATHETER, JSN, QUAD FR 5 was advanced vis Fem Vein (left) and placed in the HIS. Placement wa s visually 15:01:34 confirmed under fluoroscopy. A CATHETER, JSN, QUAD FR 5 was advanced vis Fem Vein (left) and placed in the HRA. Placement wa s visually 15:01:57 confirmed under fluoroscopy. A CATHETER, JSN, QUAD FR 5 was advanced vis Fem Vein (left) and placed in the RVA. Placement wa s visually 15:02:06 confirmed under fluoroscopy. 15:07:37 PACU called. Spoke to Nia A CATHETER, CELSIUS DS, 8MM, F TYPE QUAD FR 7 was advanced vis Fem Vein (right) and placed in t he Isthmus. 15:11:28 Placement was visually confirmed under fluoroscopy. 15:12:02 RF Ablation of the Isthmus with a CATHETER, CELSIUS DS, 8MM, F TYPE QUAD FR 7. 15:15:21 Ablation procedure performed: Aflutter. 15:15:29 EP Procedure was performed. 15:17:00 Incremental Atrial Pacing in progress 5 mcg/min ISUPREL given in lab by Anesthesia, BASE LOADER via Peripheral IV. Pump/Drip Flow = 75 ml/hr using NaCl .9 with 15:19:28 a concentration of 1 mg in 250 ml. Ordered by Marlyn Beltran. 15:26:17 Incremental Atrial Pacing in progress 15:26:28 Catheter was removed 0 mcg/min ISUPREL given in lab by Anesthesia, BASE LOADER via Peripheral IV. Pump/Drip Flow = 0 ml/hr using NaCl .9 with a 15:27:06 concentration of 1 mg in 250 ml. Ordered by Marlyn Beltran. Discontinued at 09/11/2017 15:27. 15:27:24 Case End (Physician broke scrub) 15:28:16 Bedside Report will be given. 15:29:33 Sheaths removed; pressure applied to access site. 15:30:35 PACU called. Spoke to Nia 15:37:05 Sterile dressing applied to site 15:37:12 No case complications noted. 15:37:14 Cine recording checked. 15:37:23 Verbal Stimulation=2 Physical Stimulation=2 Airway=2 Respiration=2 TOTAL=8. (0=absent, 1=l imited, 2=present) 15:39:21 Defibrillator and ground pads removed. Skin intact. 15:47:40 Patient moved to stretcher End Study - Contrast Media Used In Study Contrast Total Opened (mL) Total Used (mL) Total Wasted (mL) Unspecified 0 0 0 End Study - Maximum Contrast Load Max Contrast Load (mL) 286.2 End Study - Radiation Exposure Fluoro Time (minutes) 2.5 End Study - Patient Disposition Complications Transferred To Interventional Outcome No Physical Sciences Instructor Holding successful
[2017-09-11] MEDS ORDERED: DO NOT ADM ANY ANTICOAGULANT DRUGS PRN (15:55)
[2017-09-11 17:58] VITALS: BP 145/96; PULSE 74; RESP 18; TEMP 97.9; O2SAT 100
[2017-09-11 18:58] VITALS: BP 148/92; PULSE 61; RESP 18; TEMP 97.9; O2SAT 100
[2017-09-11] MEDS ORDERED: LIDOCAINE HCL 1% 50 ML VIAL INFIL PRN (19:00)
[2017-09-11] MEDS ORDERED: oxyCODONE/ACETAMINOPHEN 5 MG/325 MG TAB PO PRN ×2 (19:00)
[2017-09-11] MEDS ORDERED: ATROPINE SULFATE 1 MG/ML VIAL IV PUSH PRN (19:00)
[2017-09-11] MEDS ORDERED: LORazepam 2 MG/ML VIAL IV PUSH PRN (19:00)
[2017-09-11] MEDS ORDERED: BACITRACIN OINT 0.9 GM PKT TOP ONE (19:00)
[2017-09-11] MEDS ORDERED: SODIUM CHLOR 0.9% 250 ML INJ 250 ML IV PRN (19:00)
[2017-09-11] MEDS ORDERED: ONDANSETRON ODT 4 MG TAB PO PRN (19:00)
[2017-09-11 20:00] VITALS: BP 125/76; PULSE 63; RESP 18; TEMP 98; O2SAT 100; O2SAT 93
[2017-09-11] MEDS: POTASSIUM CHLORIDE 10 MEQ CONTROLLED RELEASE TAB PO SCH (23:54)
[2017-09-11] MEDS: SACUBITRIL/VALSARTAN 24 MG-26 MG TAB PO SCH (23:54)
[2017-09-11] MEDS: APIXABAN 5 MG TABLET PO SCH (23:54)
[2017-09-12] VITALS: BP 125/76; PULSE 58; RESP 18; TEMP 98; O2SAT 95
[2017-09-12 04:10] VITALS: BP 120/85; PULSE 61; RESP 19; TEMP 98.7; O2SAT 95
[2017-09-12 06:00] VITALS: PULSE 78
[2017-09-12 06:36] LABS: INTERNATIONAL NORMALIZED RATIO 1.1 RATIO; PROTHROMBIN TIME - PATIENT 10.8 SEC (9.8-11.6)
--- NOTE | 2017-09-12 07:31 | EKG ---
Date Performed: 09/11/2017 Time Performed: 19:05:12 PTAGE: 67 years EKG: Possible ectopic atrial rhythm Leftward axis Extensive ST-T changes may be due to myocardia l ischemia Abnormal ECG PREVIOUS TRACING : 09/11/2017 16.07 DOCTOR: Collin Tang Interpretating Date/Time 09/12/2017 07:28:45
--- NOTE | 2017-09-12 07:35 | EKG ---
Date Performed: 09/11/2017 Time Performed: 16:07:14 PTAGE: 67 years EKG: ECTOPIC ATRIAL RHYTHM BORDERLINE LEFT AXIS DEVIATION NONSPECIFIC T-WAVE ABNORMALITY ABNORMA L RHYTHM ECG PREVIOUS TRACING : 09/11/2017 12.54 DOCTOR: Collin Tang Interpretating Date/Time 09/12/2017 07:31:55
--- NOTE | 2017-09-12 08:21 | PD.CARD.PN ---
Subjective Subjective Remarks Feeling better today. Objective Medications Current Medications Medications (Trade) Dose Ordered Sig/Mike Route Start Time Stop Time Status Last Admin Sodium Chloride 500 ml @ 30 mls/hr [id number] PRN IV 09/11/17 12:30 09/14/17 12:29 (Lopressor) 25 mg AIR CONTROL/ANTI AIR WARFARE OFFICER PRN PO 09/11/17 12:30 09/14/17 12:29 (Betadine 5% Antisepsis Kit) 1 applic AIR CONTROL/ANTI AIR WARFARE OFFICER PRN EACH NARE 09/11/17 12:30 09/14/17 12:29 (Chlorhexidine 2% Cloth) 3 pack AIR CONTROL/ANTI AIR WARFARE OFFICER PRN TOPICAL 09/11/17 12:30 09/14/17 12:29 (Ativan) 1 mg AIR CONTROL/ANTI AIR WARFARE OFFICER SL 09/11/17 12:30 09/14/17 12:29 ([facility] Nursing Information) ALL NURSING DEPARTME... UNSCH PRN .XX 09/11/17 15:55 09/12/17 15:54 (Percocet 5-325 Mg) 1 tab Q4H PRN PO 09/11/17 19:00 (Percocet 5-325 Mg) 2 tab Q4H PRN PO 09/11/17 19:00 (Ativan Inj) 0.5 mg UNSCH PRN IV PUSH 09/11/17 19:00 09/12/17 18:59 (Atropine Inj) 0.5 mg UNSCH PRN IV PUSH 09/11/17 19:00 Sodium Chloride 250 ml @ 500 mls/hr ONCE PRN IV 09/11/17 19:00 09/12/17 18:59 (Zofran Odt) 4 mg Q4H PRN PO 09/11/17 19:00 (Xylocaine 1% Inj (50 ml)) 10 ml UNSCH PRN INFIL 09/11/17 19:00 09/12/17 18:59 (Eliquis) 5 mg BID PO 09/11/17 21:00 09/11/17 23:54 (Lasix) 40 mg BID@,18 PO 09/12/17 09:00 (Toprol Xl) 25 mg DAILY PO 09/12/17 09:00 (KCl) 20 meq BID PO 09/11/17 21:00 09/11/17 23:54 (Entresto 24-26 Mg) 1 tab BID PO 09/11/17 21:00 09/11/17 23:54 Vital Signs / I&O Vital Signs Date Time Temp Pulse Resp B/P (MAP) Pulse Ox O2 Delivery O2 Flow Rate FiO2 09/12/17 06:00 78 09/12/17 04:10 98.7 61 19 120/85 (97) 95 09/12/17 00:00 98.0 58 18 125/76 (92) 95 09/11/17 20:00 98.0 63 18 125/76 (92) 93 09/11/17 18:58 97.9 61 18 148/92 (110) 100 09/11/17 17:58 97.9 74 18 145/96 (112) 100 09/11/17 17:30 97.5 60 18 154/91 (112) 99 Nasal Cannula 2 09/11/17 17:00 62 14 147/85 (105) 100 Nasal Cannula 2 09/11/17 16:45 59 15 147/91 (109) 100 Nasal Cannula 2 09/11/17 16:30 70 14 160/90 (113) 99 Nasal Cannula 2 09/11/17 16:15 69 13 137/88 (104) 100 Nasal Cannula 2 09/11/17 16:00 75 14 135/84 (101) 98 Nasal Cannula 2 09/11/17 15:54 97.4 75 13 136/82 (100) 100 Nasal Cannula 2 09/11/17 12:32 97.9 59 18 169/91 (117) 99 I/O 09/11/17 09/11/17 09/11/17 09/12/17 09/12/17 09/12/17 07:00 15:00 23:00 07:00 15:00 23:00 Intake Total 700 ml 420 ml Output Total 250 ml Balance 450 ml 420 ml Intake Oral 420 ml IV Total 700 ml Output Urine Total 250 ml # Voids 1 2 Physical Exam GENERAL: Well-nourished, well-developed patient. SKIN: Warm and dry. Groin site soft without bruising or bleeding. HEAD: Normocephalic. EYES: No scleral icterus. No injection or drainage. NECK: Supple, trachea midline. No JVD or lymphadenopathy. CARDIOVASCULAR: Regular rate and rhythm without murmurs, gallops, or rubs. RESPIRATORY: Breath sounds equal bilaterally. No accessory muscle use. GASTROINTESTINAL: Abdomen soft, non-tender, nondistended. EXTREMITIES: No cyanosis, or edema. NEUROLOGICAL: Awake, alert, and oriented x 3. Non-focal. Laboratory Laboratory Tests Test 09/11/17 12:10 09/12/17 05:43 White Blood Count 8.2 TH/MM3 Red Blood Count 4.04 MIL/MM3 Hemoglobin 12.1 GM/DL Hematocrit 35.4 % Mean Corpuscular Volume 87.6 FL Mean Corpuscular Hemoglobin 29.9 PG Mean Corpuscular Hemoglobin Concent 34.1 % Red Cell Distribution Width 14.4 % Platelet Count 301 TH/MM3 Mean Platelet Volume 6.6 FL Neutrophils (%) (Auto) 58.0 % Lymphocytes (%) (Auto) 30.4 % Monocytes (%) (Auto) 8.1 % Eosinophils (%) (Auto) 2.5 % Basophils (%) (Auto) 1.0 % Neutrophils # (Auto) 4.7 TH/MM3 Lymphocytes # (Auto) 2.5 TH/MM3 Monocytes # (Auto) 0.7 TH/MM3 Eosinophils # (Auto) 0.2 TH/MM3 Basophils # (Auto) 0.1 TH/MM3 CBC Comment DIFF FINAL Differential Comment Prothrombin Time 10.5 SEC 10.8 SEC Prothromb Time International Ratio 1.0 RATIO 1.1 RATIO Activated Partial Thromboplast Time 26.6 SEC 27.8 SEC Blood Urea Nitrogen 20 MG/DL Creatinine 1.18 MG/DL Random Glucose 80 MG/DL Calcium Level 9.4 MG/DL Sodium Level 141 MEQ/L Potassium Level 4.3 MEQ/L Chloride Level 106 MEQ/L Carbon Dioxide Level 25.2 MEQ/L Anion Gap 10 MEQ/L Estimat Glomerular Filtration Rate 55 ML/MIN Assessment and Plan Problem List: (1) Atrial flutter ICD Codes: I48.92 - Unspecified atrial flutter Plan: Normal sinus rhythm status post atrial flutter ablation. (2) S/P ablation of atrial flutter ICD Codes: Z98.890 - Other specified postprocedural states; Z86.79 - Personal history of other diseases of the circulatory system Plan: Stable for discharge home. Continue wearing LifeVest. Continue Eliquis. Follow-up with Dr. Beltran in 3 weeks. Contact office for any questions or concerns. Assessment and plan discussed with patient, RN, Dr. Beltran. Problem Qualifiers (1) Atrial flutter: Qualified Codes: I48.92 - Unspecified atrial flutter Valeri Hanson Sep 12, 2017 08:21
[2017-09-12] MEDS ORDERED: FUROSEMIDE 40 MG TAB PO SCH (09:00)
[2017-09-12] MEDS ORDERED: METOPROLOL SUCCINATE 25 MG EXTENDED RELEASE TAB PO SCH (09:00)
[2017-09-12] MEDS: SACUBITRIL/VALSARTAN 24 MG-26 MG TAB PO SCH (09:17)
[2017-09-12] MEDS: POTASSIUM CHLORIDE 10 MEQ CONTROLLED RELEASE TAB PO SCH (09:18)
[2017-09-12] MEDS: APIXABAN 5 MG TABLET PO SCH (09:18)
--- NOTE | 2017-09-12 14:02 | EKG ---
Date Performed: 09/11/2017 Time Performed: 12:54:46 PTAGE: 67 years EKG: Sinus bradycardia. Prolonged QT interval Leftward axis Extensive T wave changes may be due to myocardial ischemia Abnormal ECG PREVIOUS TRACING : 08/02/2017 12.31 DOCTOR: Collin Tang Interpretating Date/Time 09/12/2017 14:00:53
== END 2017-09-12 10:21 | disposition home or self-care (01) ==
LOC: HDIC 11:53 → HDOC 11:53 → HCIS 20:07 → HDOC 09-12 10:21
PROVIDERS: ATTEND Internal Medicine Interventional Cardiology
DX: I48.3 Typical atrial flutter (principal); I48.92 Unspecified atrial flutter; I50.9 Heart failure, unspecified; I42.9 Cardiomyopathy, unspecified; I25.10 Atherosclerotic heart disease of native coronary artery without angina pectoris; R06.00 Dyspnea, unspecified; I34.0 Nonrheumatic mitral (valve) insufficiency; N17.9 Acute kidney failure, unspecified; R06.01 Orthopnea; I47.2 Ventricular tachycardia; R06.02 Shortness of breath
CPT/HCPCS: 00537; 80048; 85025; 85610; 85730; 86850; 86900; 86901; 86920; 86922; 93005; 93613; 93623; 93653; C1730; C1732; C2630; J0330; J1644; J2370; J2405; J3010; 93620